=== PATIENT | female | born 1965 | race Caucasian/White ===

== ENCOUNTER 2016-09-17 15:28 | Inpatient (IN) | payer OTHER ==
--- NOTE | 2016-09-17 15:39 | EKG Report ---
Test Performed on : 09/17/2016 3:36:07 PM Test Reason : Chest Pain Blood Pressure : / mmHG Vent. Rate : 063 BPM Atrial Rate : 063 BPM P-R Int : 344 ms QRS Dur : 138 ms QT Int : 476 ms P-R-T Axes : 007 -56 070 degrees QTc Int : 487 ms Sinus rhythm. with 1st degree AV block. Left axis deviation Nonspecific intraventricular block Cannot rule out Anterior infarct (cited on or before 18-SEP-2015) Abnormal ECG When compared with ECG of 08-APR-2016 16:21, Questionable change in initial forces of Anterior leads Unconfirmed Result
--- NOTE | 2016-09-17 15:56 | ED EKG INTERP ---
EKG Interpretation - EKG Time of EKG reading by physician:: 15:36 EKG Read and Signed by:: Jana Aguilar EKG Interpretation (*Must complete 3 of following elements*): Abnormal Rate: 63 (nonspecific intraventricular block ; cannot rule out anterior infarct) Rhythm: sinus rhythm with 1st degree AV block [place]: left (deviation) - EKG # 2 Time of EKG reading by physician:: 17:00 EKG Read and Signed by:: Jana Aguilar EKG Interpretation (*Must complete 3 of following elements*): Abnormal Rate: 58 Rhythm: sinus bradycardia with 1st degree AV block [place]: left (deviation) QRS: LBB Attestation - Scribe Verification/Attestation Scribe:: Sue Oneil Acting as Scribe for:: Jana Aguilar Scribe documention review:: This chart was documented by a scribe and accurately reflects the service the provider performed and the decisions made by the provider.
[2016-09-17 15:59] LABS: MANUAL DIFF NEEDED? NO
[2016-09-17 16:03] LABS: BASO% 0.3 % (0.0-0.8); EOS# 0.13 X1000 (0.0-0.7); EOS% 2.1 % (0.0-10.0); HEMATOCRIT 31.2 % (37.0-47.0); HEMOGLOBIN 10.6 g/dL (12.0-16.0); IMM GRAN# 0.02 X1000 (0.0-0.04); IMM GRAN% 0.3 % (0.0-0.5); LYMPH# 1.25 X1000 (1.2-3.4); LYMPH% 19.7 % (20.5-51.1); MCH 30.6 PG (27-31); MCV 90.2 FL (81-99); MONO# 0.71 X1000 (0.11-0.59); MONO% 11.2 % (1.7-9.3); MPV 11.3 FL (7.4-10.4); NEUT% 66.4 % (42.2-75.2); PLT 120 X1000 (130-400); RBC 3.46 XMIL (4.2-5.4)
[2016-09-17 16:13] LABS: INR 1.2; PROTIME 12.7 Seconds (9.2-11.7); PTT 33.1 Seconds (22.0-36.0)
[2016-09-17] MEDS ORDERED: PHENERGAN ONE (16:36)
--- NOTE | 2016-09-17 16:41 | PROVIDER DOCUMENTATION ---
HPI-General Adult - General Source: patient - History of Present Illness -Gen Adult Nature of Presenting Problems: pt is a 51 yof who came to the ED with a cc of not feeling well. Pt reports she has been vomiting and having diarrhea for the last week and missed dialysis. Location of Pain/Injury: reports: chest Pain Radiation: reports: no radiation Quality of Pain: reports: none Onset/Duration: reports: 3 days ago Timing: reports: still present Context/Activities at Onset: reports: none Modifying Factors: improves with: vomiting Associated Symptoms: reports: diarrhea, vomiting Similar Symptoms Previously?: No Recently seen or treated by another doctor?: No <Sue Oneil - Last Filed: 09/17/16 17:15> <Jana Aguilar - Last Filed: 09/17/16 17:27> - General Chief Complaint: General Adult Stated Complaint: WEAKNESS,CP,SOB Time Seen by Provider: 09/17/16 16:11 Allergies/Adverse Reactions: Patient Allergies Allergy/AdvReac Type Severity Reaction Status Date / Time rizatriptan benzoate * Allergy Severe ANAPHYLAXIS Verified 09/17/16 16:19 [From Maxalt] ciprofloxacin [From Cipro] Allergy Mild Unknown Verified 09/17/16 16:19 ciprofloxacin HCl * Allergy Mild Unknown Verified 09/17/16 16:19 [From Cipro] ondansetron HCl * Allergy Mild HEADACHE Verified 09/17/16 16:19 [From Zofran] Sulfa (Sulfonamide Allergy Unknown Verified 09/17/16 16:19 Antibiotics) Home Medications: Home Medication List Medication Instructions Recorded Confirmed Last Taken Type Trazodone [Desyrel] 50 mg PO QHS 09/30/13 09/17/16 09/16/16 20:00 History Clonidine [Catapres] 0.2 mg PO BID #60 tablet 07/07/15 09/17/16 09/17/16 09:30 Rx Carvedilol [Coreg] 25 mg PO BID #60 tablet 09/25/15 09/17/16 09/17/16 09:30 Rx Pregabalin [Lyrica] 300 mg PO BID 10/02/15 09/17/16 04/08/16 08:00 History Acetaminophen [Tylenol] 650 mg PO Q6H PRN PRN #0 tablet 01/26/16 04/08/16 Unknown Rx Insulin Lispro [Humalog] See Protocol SQ DIRECTED #0 01/26/16 09/17/16 08:00 Rx cartridge Aspirin [Aspirin EC] 81 mg PO DAILY 04/08/16 09/17/16 09/17/16 09:30 History Cinnamon Bark [Cinnamon] 500 mg PO BID 04/08/16 09/17/16 09/17/16 09:30 History Clopidogrel Bisulfate [Plavix] 75 mg PO DAILY 04/08/16 09/17/16 09/17/16 09:30 History Folic Acid/Vitamin B Comp W-C 0.8 mg PO DAILY 04/08/16 09/17/16 04/08/16 08:00 History [Folic Acid Xtra Caplet] Insulin Glargine [Lantus] 30 unit SUBQ QHS 04/08/16 09/17/16 04/07/16 21:00 History Losartan [Cozaar] 100 mg PO DAILY 04/08/16 09/17/16 09/17/16 09:30 History Quetiapine Fumarate [Seroquel] 100 mg PO DAILY 04/08/16 09/17/16 04/08/16 08:00 History Hydrocodone/APAP 7.5 mg/325 mg 1 each PO Q6H PRN PRN #0 tablet 04/14/16 Unknown Rx [[place]-7.5] Metoclopramide [Reglan] 5 mg PO TID AC #0 tablet 04/14/16 09/17/16 Unknown Rx Nifedipine E.r. [Procardia ER] 60 mg PO DAILY #0 tablet 04/14/16 09/17/16 09: 30 Rx Nifedipine [Procardia Xl] 60 mg PO DAILY #0 04/14/16 09/17/16 09/17/16 09:30 Rx ATORVAstatin [Lipitor] 10 mg PO QHS 09/17/16 09/17/16 Unknown History Review of Systems - Adult - REVIEW OF SYSTEMS - ADULT Constitutional: denies: chills, fever Eyes: reports: no symptoms reported Ears, Nose, Mouth & Throat: reports: no symptoms reported Cardiovascular: denies: heart murmur, orthopnea Respiratory: reports: no symptoms reported Gastrointestinal: reports: abdominal pain, diarrhea, nausea, vomiting. denies: difficulty swallowing, frequent heartburn, poor appetite Genitourinary: reports: no symptoms reported Musculoskeletal: denies: frequent leg cramps, muscle aches Integumentary: reports: no symptoms reported Neurological: reports: no symptoms reported Psychiatric: reports: no symptoms reported Endocrine: reports: no symptoms reported Hematologic/Lymphatic: reports: no symptoms reported Allergic/Immunologic: reports: no symptoms reported All Other Systems: Reviewed and Negative <Sue Oneil - Last Filed: 09/17/16 17:15> Past History - Adult - PAST MEDICAL HISTORY-ADULT Review of Records: reports: Old Records Reviewed, Nursing Assessment Review Major Childhood Illnesses: reports: denies history Cardiovascular: reports: CHF, HTN, murmur Respiratory: reports: asthma, COPD Gastrointestinal: reports: GERD Obstetrical/Gynecological: reports: denies history Genitourinary: reports: dialysis (TTS), ESRD Musculoskeletal: reports: arthritis Neurological: reports: speech difficulty Psychiatric: reports: depression Endocrine/Immune: reports: Diabetes Other Conditions: reports: denies history - PRIOR SURGERIES/PROCEDURES Surgical/Procedure History: reports: appendectomy, cholecystectomy, hysterectomy , indwelling device (AV fist left arm), orthopedic (extremity) - PRIOR HOSPITALIZATIONS Prior Hospitalizations: reports: none - IMMUNIZATION STATUS Childhood Immunizations: See Nurse Assessment Flu Vaccine: See Nurse Assessment - FAMILY HISTORY Family History: reviewed, not pertinent <Sue Oneil - Last Filed: 09/17/16 17:15> Physical Exam-General - PHYSICAL EXAM-ADULT Initial Vital Signs Reviewed: Yes - CONSTITUTIONAL General Appearance: alert, no apparent distress - EYES Eyes: PERRL/EOMI, pink conjunctivae, fundi clear, no AV nicking - HEAD, EARS, NOSE, MOUTH & THROAT HENMT: normocephalic/atraumatic, moist mucous membranes, normal ENT inspection - NECK Neck: non-tender, full range of motion - RESPIRATORY Respiratory: chest non-tender, lungs clear, normal breath sounds, no pleuratic chest pain, no respiratory distress, no accessory muscle use - CARDIOVASCULAR Cardiovascular: normal peripheral pulses, regular rate, rhythm, no edema, no gallop, no JVD, no murmur - GASTROINTESTINAL (ABDOMEN) Abdominal Exam: normal bowel sounds, tenderness - MUSCULOSKELETAL Back Exam: normal inspection, no CVA tenderness, no vertebral tenderness - SKIN Integumentary: normal turgor, warm/dry, pallor - NEUROLOGIC Neurologic: grossly normal - PSYCHIATRIC Psych/Mental Status: normal mood/affect, normal thought content, normal thought process, oriented x 3 <Sue Oneil - Last Filed: 09/17/16 17:15> Progress - PLAN OF CARE/RESULTS Progress/Plan/Lab Results: Vital Signs - 24 hr 09/17/16 15:34 Temperature 97.8 F Pulse Rate 63 Respiratory 20 Rate Blood Pressure 132/82 O2 Sat by Pulse 95 Oximetry Orders Category Date Time Status CHEST-2 VIEWS [RAD] Stat Exams 09/17/16 15:32 Taken AMYLASE [CHEM] Stat Lab 09/17/16 15:52 Received CBC WITH ELECTRONIC DIFF [HEME] Stat Lab 09/17/16 15:52 Completed CK PROFILE [SP CHEM] Stat Lab 09/17/16 15:52 Received COMPREHENSIVE METABOLIC PANEL [CHEM] Stat Lab 09/17/16 15:52 Received LIPASE [CHEM] Stat Lab 09/17/16 15:52 Received MAGNESIUM [CHEM] Stat Lab 09/17/16 15:52 Received PRO B-NATRIURETIC PEPTIDE Stat Lab 09/17/16 15:52 Received PROTIME WITH INR [COAG] Stat Lab 09/17/16 15:52 Completed PTT [COAG] Stat Lab 09/17/16 15:52 Completed TROPONIN T Stat Lab 09/17/16 15:52 Received Promethazine [Phenergan] Med 09/17/16 16:36 Discontinued 25 mg .ROUTE .STK-MED ONE EKG [EKG] Stat Ther 09/17/16 15:32 Draft Laboratory Tests 09/17/16 09/17/16 15:52 15:52 WBC 6.33 RBC 3.46 L Hgb 10.6 L Hct 31.2 L MCV 90.2 MCH 30.6 MCHC 34.0 RDW Std Deviation 13.3 Plt Count 120 L MPV 11.3 H Immature Gran % (Auto) 0.3 Neut % (Auto) 66.4 Lymph % (Auto) 19.7 L [place] % (Auto) 11.2 H Eos % (Auto) 2.1 Baso % (Auto) 0.3 Immature Gran # (Auto) 0.02 Neut # (Auto) 4.20 Lymph # (Auto) 1.25 [place] # (Auto) 0.71 H Eos # (Auto) 0.13 Baso # (Auto) 0.02 PT 12.7 H INR 1.20 PTT (Actin FS) 33.1 Laboratory Tests 09/17/16 09/17/16 09/17/16 15:52 15:52 15:52 WBC 6.33 RBC 3.46 L Hgb 10.6 L Hct 31.2 L MCV 90.2 MCH 30.6 MCHC 34.0 RDW Std Deviation 13.3 Plt Count 120 L MPV 11.3 H Immature Gran % (Auto) 0.3 Neut % (Auto) 66.4 Lymph % (Auto) 19.7 L [place] % (Auto) 11.2 H Eos % (Auto) 2.1 Baso % (Auto) 0.3 Immature Gran # (Auto) 0.02 Neut # (Auto) 4.20 Lymph # (Auto) 1.25 [place] # (Auto) 0.71 H Eos # (Auto) 0.13 Baso # (Auto) 0.02 PT INR PTT (Actin FS) Sodium 132 L Potassium 7.6 H* Chloride 88 L Carbon Dioxide 16 L Anion Gap 28 BUN 105 H Creatinine 14.0 H* Estimated GFR/1.73 m2 3 BUN/Creatinine Ratio 8 Glucose 157 H Calculated Osmolality 301 Calcium 9.8 Magnesium 2.0 Total Bilirubin 0.43 AST 12 ALT 9 L Alkaline Phosphatase 138 H Creatine Kinase 97 Troponin T Fag-T-Zobfmkpvoix Pept > 87198 H Total Protein 8.0 Albumin 3.8 Globulin 4.2 Albumin/Globulin Ratio 0.9 Amylase 29 Lipase 45 09/17/16 09/17/16 15:52 15:52 WBC RBC Hgb Hct MCV MCH MCHC RDW Std Deviation Plt Count MPV Immature Gran % (Auto) Neut % (Auto) Lymph % (Auto) [place] % (Auto) Eos % (Auto) Baso % (Auto) Immature Gran # (Auto) Neut # (Auto) Lymph # (Auto) [place] # (Auto) Eos # (Auto) Baso # (Auto) PT 12.7 H INR 1.20 PTT (Actin FS) 33.1 Sodium Potassium Chloride Carbon Dioxide Anion Gap BUN Creatinine Estimated GFR/1.73 m2 BUN/Creatinine Ratio Glucose Calculated Osmolality Calcium Magnesium Total Bilirubin AST ALT Alkaline Phosphatase Creatine Kinase Troponin T 0.444 H* Hfy-K-Qzzcbtgqmlg Pept Total Protein Albumin Globulin Albumin/Globulin Ratio Amylase Lipase - CONSULTS/PCP/HOSPITALIST Notification #1 *Consult/PCP/Hospitalist*: Dr. Madrid Time Discussed: 17:05 (talked about pt 7.6 K. ) Consult Disposition: Admit #2 Consult: Dr. Gooden Time Discussed: 17:10 (pt should be admitted for high K, dialysis is not available right now. ) Consult Disposition: Admit #3 Consult: Dr. Madrid Time Discussed: 17:13 (comfirmed with Dr. Gooden) Consult Disposition: Admit <Sue Oneil - Last Filed: 09/17/16 17:15> - PLAN OF CARE/RESULTS Progress/Plan/Lab Results: Laboratory Results - last 24 hr 09/17/16 09/17/16 09/17/16 15:52 15:52 15:52 WBC 6.33 RBC 3.46 L Hgb 10.6 L Hct 31.2 L MCV 90.2 MCH 30.6 MCHC 34.0 RDW Std Deviation 13.3 Plt Count 120 L MPV 11.3 H Immature Gran % (Auto) 0.3 Neut % (Auto) 66.4 Lymph % (Auto) 19.7 L [place] % (Auto) 11.2 H Eos % (Auto) 2.1 Baso % (Auto) 0.3 Immature Gran # (Auto) 0.02 Neut # (Auto) 4.20 Lymph # (Auto) 1.25 [place] # (Auto) 0.71 H Eos # (Auto) 0.13 Baso # (Auto) 0.02 PT INR PTT (Actin FS) Sodium 132 L Potassium 7.6 H* Chloride 88 L Carbon Dioxide 16 L Anion Gap 28 BUN 105 H Creatinine 14.0 H* Estimated GFR/1.73 m2 3 BUN/Creatinine Ratio 8 Glucose 157 H Calculated Osmolality 301 Calcium 9.8 Magnesium 2.0 Total Bilirubin 0.43 AST 12 ALT 9 L Alkaline Phosphatase 138 H Creatine Kinase 97 Troponin T Top-B-Pueduvrkpkf Pept > 04702 H Total Protein 8.0 Albumin 3.8 Globulin 4.2 Albumin/Globulin Ratio 0.9 Amylase 29 Lipase 45 09/17/16 09/17/16 15:52 15:52 WBC RBC Hgb Hct MCV MCH MCHC RDW Std Deviation Plt Count MPV Immature Gran % (Auto) Neut % (Auto) Lymph % (Auto) [place] % (Auto) Eos % (Auto) Baso % (Auto) Immature Gran # (Auto) Neut # (Auto) Lymph # (Auto) [place] # (Auto) Eos # (Auto) Baso # (Auto) PT 12.7 H INR 1.20 PTT (Actin FS) 33.1 Sodium Potassium Chloride Carbon Dioxide Anion Gap BUN Creatinine Estimated GFR/1.73 m2 BUN/Creatinine Ratio Glucose Calculated Osmolality Calcium Magnesium Total Bilirubin AST ALT Alkaline Phosphatase Creatine Kinase Troponin T 0.444 H* Xdd-O-Mbufwozwmmh Pept Total Protein Albumin Globulin Albumin/Globulin Ratio Amylase Lipase Orders Category Date Time Status Admit - [facility] Routine AdmDCTranf 09/17/16 17:16 Ordered Call Admitting on Arrival AT ADMISSION Care 09/17/16 17:17 Active CHEST-2 VIEWS [RAD] Stat Exams 09/17/16 15:32 Taken AMYLASE [CHEM] Stat Lab 09/17/16 15:52 Completed CBC WITH ELECTRONIC DIFF [HEME] Stat Lab 09/17/16 15:52 Completed CK PROFILE [SP CHEM] Stat Lab 09/17/16 15:52 Completed COMPREHENSIVE METABOLIC PANEL [CHEM] Stat Lab 09/17/16 15:52 Completed LIPASE [CHEM] Stat Lab 09/17/16 15:52 Completed MAGNESIUM [CHEM] Stat Lab 09/17/16 15:52 Completed POTASSIUM [CHEM] Routine Lab 09/17/16 22:00 Uncollected POTASSIUM [CHEM] Stat Lab 09/17/16 17:17 Uncollected POTASSIUM [CHEM] Urgent Lab 09/17/16 19:00 Uncollected PRO B-NATRIURETIC PEPTIDE Stat Lab 09/17/16 15:52 Completed PROTIME WITH INR [COAG] Stat Lab 09/17/16 15:52 Completed PTT [COAG] Stat Lab 09/17/16 15:52 Completed TROPONIN T Stat Lab 09/17/16 15:52 Completed Albuterol 0.5% INH Conc [Albuterol 0.5% INH Conc For Med 09/17/16 21:00 Once Hyperkalemia] 25 mg INH NOW ONE Albuterol [Albuterol Neb] Med 09/17/16 16:57 Discontinued 25 mg INH NOW ONE Calcium Gluconate 1 gm Med 09/17/16 16:54 Discontinued 0.9% Sodium Chloride Inj [Ns] 50 ml IV NOW Dextrose 50% Syringe [D50w Syringe] Med 09/17/16 16:54 Discontinued 50 ml IV NOW ONE Dextrose 50% Syringe [D50w Syringe] Med 09/17/16 21:00 Once 50 ml IV NOW ONE Insulin Human Regular [Humulin R] Med 09/17/16 16:54 Discontinued 10 unit IV NOW ONE Insulin Human Regular [Humulin R] Med 09/17/16 21:00 Once 10 unit IV NOW ONE Promethazine [Phenergan] Med 09/17/16 16:36 Discontinued 25 mg .ROUTE .STK-MED ONE Promethazine [Phenergan] Med 09/17/16 16:43 Discontinued 25 mg IM NOW ONE Aerosol Treatments Routine Oth 09/17/16 16:57 Completed Aerosol Treatments Routine Oth 09/17/16 17:16 Active Aerosol Treatments Stat Oth 09/17/16 16:57 Completed Aerosol Treatments Stat Oth 09/17/16 17:16 Active Telemetry [OM.EQ] Routine Oth 09/17/16 17:15 Active EKG [EKG] Stat Ther 09/17/16 15:32 Draft EKG [EKG] Stat Ther 09/17/16 16:58 Ordered Transfer/Admit Order [TRANSFER] Routine Transfer 09/17/16 17:17 Ordered Vital Signs Temp Pulse Resp BP Pulse Ox 09/17/16 17:21 58 L 16 133/83 96 09/17/16 17:12 51 L 18 95 09/17/16 15:34 97.8 F 63 20 132/82 95 rizatriptan benzoate * [From Maxalt] Allergy (Severe, Verified 09/17/16 16:19) ANAPHYLAXIS ciprofloxacin [From Cipro] Allergy (Mild, Verified 09/17/16 16:19) Unknown ciprofloxacin HCl * [From Cipro] Allergy (Mild, Verified 09/17/16 16:19) Unknown ondansetron HCl * [From Zofran] Allergy (Mild, Verified 09/17/16 16:19) HEADACHE Sulfa (Sulfonamide Antibiotics) Allergy (Verified 09/17/16 16:19) Unknown Trazodone [Desyrel] 50 mg PO QHS 09/30/13 Clonidine [Catapres] 0.2 mg PO BID #60 tablet 07/07/15 Carvedilol [Coreg] 25 mg PO BID #60 tablet 09/25/15 Pregabalin [Lyrica] 300 mg PO BID 10/02/15 Acetaminophen [Tylenol] 650 mg PO Q6H PRN PRN #0 tablet 01/26/16 Insulin Lispro [Humalog] See Protocol SQ DIRECTED #0 cartridge 01/26/16 Aspirin [Aspirin EC] 81 mg PO DAILY 04/08/16 Cinnamon Bark [Cinnamon] 500 mg PO BID 04/08/16 Clopidogrel Bisulfate [Plavix] 75 mg PO DAILY 04/08/16 Folic Acid/Vitamin B Comp W-C [Folic Acid Xtra Caplet] 0.8 mg PO DAILY 04/08/16 Insulin Glargine [Lantus] 30 unit SUBQ QHS 04/08/16 Losartan [Cozaar] 100 mg PO DAILY 04/08/16 Quetiapine Fumarate [Seroquel] 100 mg PO DAILY 04/08/16 Hydrocodone/APAP 7.5 mg/325 mg [[place]-7.5] 1 each PO Q6H PRN PRN #0 tablet 04/14 Metoclopramide [Reglan] 5 mg PO TID AC #0 tablet 04/14/16 Nifedipine E.r. [Procardia ER] 60 mg PO DAILY #0 tablet 04/14/16 Nifedipine [Procardia Xl] 60 mg PO DAILY #0 04/14/16 ATORVAstatin [Lipitor] 10 mg PO QHS 09/17/16 Laboratory 09/17/16 09/17/16 09/17/16 15:52 15:52 15:52 WBC RBC Hgb Hct MCV MCH MCHC RDW Std Deviation Plt Count MPV Immature Gran % (Auto) Neut % (Auto) Lymph % (Auto) [place] % (Auto) Eos % (Auto) Baso % (Auto) Immature Gran # (Auto) Neut # (Auto) Lymph # (Auto) [place] # (Auto) Eos # (Auto) Baso # (Auto) PT 12.7 H INR 1.20 PTT (Actin FS) 33.1 Sodium Potassium Chloride Carbon Dioxide Anion Gap BUN Creatinine Estimated GFR/1.73 m2 BUN/Creatinine Ratio Glucose Calculated Osmolality Calcium Magnesium Total Bilirubin AST ALT Alkaline Phosphatase Creatine Kinase Troponin T 0.444 H* Mdk-F-Jrixenlvglk Pept > 93727 H Total Protein Albumin Globulin Albumin/Globulin Ratio Amylase Lipase 09/17/16 09/17/16 15:52 15:52 WBC 6.33 RBC 3.46 L Hgb 10.6 L Hct 31.2 L MCV 90.2 MCH 30.6 MCHC 34.0 RDW Std Deviation 13.3 Plt Count 120 L MPV 11.3 H Immature Gran % (Auto) 0.3 Neut % (Auto) 66.4 Lymph % (Auto) 19.7 L [place] % (Auto) 11.2 H Eos % (Auto) 2.1 Baso % (Auto) 0.3 Immature Gran # (Auto) 0.02 Neut # (Auto) 4.20 Lymph # (Auto) 1.25 [place] # (Auto) 0.71 H Eos # (Auto) 0.13 Baso # (Auto) 0.02 PT INR PTT (Actin FS) Sodium 132 L Potassium 7.6 H* Chloride 88 L Carbon Dioxide 16 L Anion Gap 28 BUN 105 H Creatinine 14.0 H* Estimated GFR/1.73 m2 3 BUN/Creatinine Ratio 8 Glucose 157 H Calculated Osmolality 301 Calcium 9.8 Magnesium 2.0 Total Bilirubin 0.43 AST 12 ALT 9 L Alkaline Phosphatase 138 H Creatine Kinase 97 Troponin T Kkm-F-Clmqdvwqrex Pept Total Protein 8.0 Albumin 3.8 Globulin 4.2 Albumin/Globulin Ratio 0.9 Amylase 29 Lipase 45 - REASSESSMENT Reassessment #1 Time Reassessed: 17:24 Status: unchanged (Consulted Dr. Reynaga, in agreeable with ER management plan. Instructed to repeat abnormal labs later on after admission. If it no improvement, will do emergent dialysis. Dr. Madrid, admitting physician, received Dr. Ma's instructions from me.) <Jana Aguilar - Last Filed: 09/17/16 17:27> Departure - Departure Time of Disposition Order: 17:18 Certified Medical Emergency: Emergent <Sue Oneil - Last Filed: 09/17/16 17:15> - Departure Time of Disposition Order: 17:26 Certified Medical Emergency: Emergent - Critical Care Note Total Time (mins): 30 Critical Care Statement: This patient required my direct personal management to treat or rule out processes, the absence of which, could potentiallly result in sudden, clinically significant life or limb threatening deterioration. <Jana Aguilar - Last Filed: 09/17/16 17:27> - Departure DIAGNOSIS: Hyperkalemia, diminished renal excretion Diarrhea Qualifiers: Diarrhea type: unspecified type Qualified Code(s): R19.7 - Diarrhea, unspecified Nausea & vomiting Qualifiers: Vomiting type: unspecified Vomiting Intractability: unspecified Qualified Code( s): R11.2 - Nausea with vomiting, unspecified Disposition: ADMITTED INPATIENT 09 Condition: Stable Referrals: Yared Elizondo MD [Primary Care Provider] - Attestation - Scribe Verification/Attestation Scribe:: Sue Oneil Acting as Scribe for:: Jana Aguilar Scribe documention review:: This chart was documented by a scribe and accurately reflects the service the provider performed and the decisions made by the provider. <Sue Oneil - Last Filed: 09/17/16 17:15> Physician Attestation
[2016-09-17] MEDS ORDERED: PHENERGAN IM ONE (16:43)
[2016-09-17 16:50] LABS: ALBUMIN 3.8 g/dL (3.5-5.0); CALCIUM 9.8 mg/dL (8.8-10.2); TOTAL BILIRUBIN 0.43 mg/dL (0.20-1.00)
[2016-09-17 16:51] LABS: POTASSIUM 7.6 mmol/L (3.5-5.1)
[2016-09-17] MEDS ORDERED: HUMULIN R IV ONE ×2 (16:54→21:00)
[2016-09-17] MEDS ORDERED: CALCIUM GLUCONATE 1 GM in NS 50 ML IV ONE (16:54)
[2016-09-17] MEDS ORDERED: D50W SYRINGE IV ONE ×2 (16:54→21:00)
[2016-09-17] MEDS ORDERED: ALBUTEROL NEB INH ONE (16:57)
[2016-09-17] MEDS ORDERED: ALBUTEROL 0.5% INH CONC FOR HYPERKALEMIA ONE (17:22)
[2016-09-17 18:01] LABS: ALLEN TEST YES; BE -7.9 mmoll (-3.0-3.0); BLOOD TYPE ARTERIAL; DRAW SITE R RADIAL; O2(CT) 14.1 mL/dL (15.0-23.0); PCO2(98.6) 39 mmHg (35-45); PO2(98.6) 69 mmHg (60-100); SAMPLE BLOOD; SAO2 93.5 % (95.0-100.0); THB 10.9 g/dL (11.5-17.4); pH(98.6) 7.28 (7.35-7.45)
[2016-09-17 18:03] LABS: MODALITY ROOM AIR
[2016-09-17] MEDS ORDERED: KAYEXALATE PO ONE (19:03)
[2016-09-17] MEDS ORDERED: TYLENOL PO PRN (19:15)
[2016-09-17] MEDS ORDERED: DUONEB (A & A) INH ONE (19:15)
[2016-09-17] MEDS ORDERED: HEPARIN IV PRN (19:17)
[2016-09-17] MEDS ORDERED: NS 2,000 ML MISC PRN (19:17)
[2016-09-17] MEDS ORDERED: TIGHT: 0.2 ML/HR MISC PRN (19:17)
[2016-09-17] MEDS ORDERED: FLUZONE QUAD 2016-2017 SYRINGE IM ONE (19:36)
--- NOTE | 2016-09-17 20:01 | HISTORY AND PHYSICAL ---
CHIEF COMPLAINT: Altered mental status. Skipped dialysis Tuesday, Tuesday, Tuesday. High potassium 7.6. HISTORY OF PRESENT ILLNESS: She is a 58-year-old white female, patient of Dr. Elizondo and Dr. Ma, on dialysis 3 times a week. She skipped 3 days in a row. She came into the ER with fatigue, weakness, altered mental status. EKG shows a left bundle. Potassium 7.6. The patient was given nebulizer dextrose, Kayexalate, calcium gluconate. Admitted in [facility] for hyperkalemia due to skipping the dialysis. Dr. Ma was consulted. He is going to do the dialysis in the morning. PAST MEDICAL HISTORY: End-stage renal disease on hemodialysis, insulin dependent diabetes, hypertension, obesity, hyperlipidemia, osteoarthritis, acid reflux disease, TA with stroke, peripheral neuropathy, history of chronic anemia. PAST SURGICAL HISTORY: Left arm fistula, hysterectomy, appendectomy, bowel resection. MEDICATIONS: Trazodone 50 at bedtime, clonidine 0.2 p.o. b.i.d., Coreg 25 p.o. b.i.d., Lyrica 300 mg b.i.d., Humalog insulin, Seroquel 100 daily, Plavix 75 daily, cinnamon bark 500 p.o. b.i.d., aspirin 80 mg daily, folic acid 0.8 mg daily, Lantus 30 units at bedtime, Cozaar 100 daily, nifedipine 60 daily, Reglan 5 mg t.i.d., [place] 7.5 q.6 hours, nifedipine 60 daily, Lipitor 10 daily. ALLERGIES: Reported to ciprofloxacin, Maxalt, Zofran, Sariah Negron. SOCIAL HISTORY: Lives in [place]. and lives with her . No smoking. No alcohol. FAMILY HISTORY: Mostly diabetes, hypertension, hyperlipidemia. REVIEW OF SYSTEMS: Unable to obtain due to confusion. PHYSICAL EXAMINATION: VITAL SIGNS: Stable on 92 % room air, drowsy and heavyset. HEENT: Pupils equal and reactive to light. NECK: Supple. No lymphadenopathy. CHEST: Bilateral air entry. No rales, no wheezing. HEART: Sounds are very distant. BREAST EXAMINATION: Deferred. ABDOMEN: Belly is soft. Midline abdominal scar present. SKIN: Extremities dry. VASCULAR: Pulses are decreased. NEUROLOGIC: Sensory examination is decreased and left arm fistula noted. EXTREMITIES: Moves all the extremities without any obvious deficits. INVESTIGATIONS: CBC: White cell count 6.3, hematocrit 31, platelets 120,000. PT 12, INR 1.2. ABG: pH is 7.38, pCO2 39, PO2 69. SMA 7, sodium 132, potassium 7.6, chloride 88, BUN 105, creatinine 1.14, magnesium 2.0. LFTs were normal. Troponin was positive. proBNP 35,000. Amylase and lipase were normal. EKG: Sinus rhythm, first-degree AV block, QT interval is 487 milliseconds. No tall T waves detected. ASSESSMENT AND PLAN: 1. A 51-year-old, white female admitted to the hospital with altered mental status due to hyperkalemia and not going for dialysis. Continue CIC monitoring. The patient was given calcium gluconate nebulizer, dextrose with 10 units of insulin and Kayexalate. Repeat SMA 7. 2. Dr. Ma consultation in the morning. 3. Reconcile home medications and follow up on labs. Discussed with family. ISABELLA
[2016-09-17] MEDS ORDERED: HUMALOG SUBQ SCH (21:00)
[2016-09-17] MEDS ORDERED: CATAPRES PO SCH (21:00)
[2016-09-17] MEDS ORDERED: ALBUTEROL 0.5% INH CONC FOR HYPERKALEMIA INH ONE (21:00)
[2016-09-17] MEDS ORDERED: LANTUS SUBQ SCH (21:00)
[2016-09-17] MEDS ORDERED: LIPITOR PO SCH (21:00)
[2016-09-17] MEDS ORDERED: COREG PO SCH (21:00)
[2016-09-17] MEDS: SODIUM CHLORIDE 0.9% INJ SCH (21:45)
[2016-09-17] MEDS: PROTONIX IV SCH (21:45)
[2016-09-17] MEDS: CATAPRES PO SCH ×2 (21:45→23:16)
[2016-09-17] MEDS: LIPITOR PO SCH ×2 (21:45→23:16)
[2016-09-17] MEDS: COREG PO SCH ×2 (21:45→23:16)
[2016-09-17] MEDS: LYRICA PO SCH ×2 (21:46→23:16)
[2016-09-17] MEDS: PATIENT'S OWN MED PO SCH (23:24)
[2016-09-18] MEDS: LANTUS SUBQ SCH (01:29)
[2016-09-18] MEDS: HUMALOG SUBQ SCH ×5 (01:30→22:09)
--- NOTE | 2016-09-18 04:29 | Diag Imaging Result Document ---
PROCEDURE NAME: CHEST-2 VIEWS - 09/17/2016 AP AND LATERAL RADIOGRAPH OF THE CHEST: COMPARISON: 04/10/2016. FINDINGS: Inspiration is suboptimal. There are increased central vascular markings suggesting pulmonary venous congestion. It is fairly similar to the previous study. The lungs are grossly clear, otherwise. There is no definite pleural fluid collection. Cardiac silhouette appears somewhat prominent but stable. IMPRESSION: Increased central vascular markings suggesting likely mild pulmonary venous congestion.
[2016-09-18 05:07] LABS: MANUAL DIFF NEEDED? NO
[2016-09-18 05:12] LABS: BASO% 0.2 % (0.0-0.8); EOS# 0.19 X1000 (0.0-0.7); EOS% 3.6 % (0.0-10.0); HEMATOCRIT 27.4 % (37.0-47.0); HEMOGLOBIN 9.2 g/dL (12.0-16.0); LYMPH# 1.49 X1000 (1.2-3.4); LYMPH% 28.5 % (20.5-51.1); MCH 30.4 PG (27-31); MCHC 33.6 g/dL (33-37); MCV 90.4 FL (81-99); MONO# 0.66 X1000 (0.11-0.59); MONO% 12.6 % (1.7-9.3); MPV 11.4 FL (7.4-10.4); NEUT% 55.1 % (42.2-75.2); PLT 108 X1000 (130-400); RBC 3.03 XMIL (4.2-5.4)
[2016-09-18 05:29] LABS: CALCIUM 9.2 mg/dL (8.8-10.2); POTASSIUM 5.8 mmol/L (3.5-5.1)
[2016-09-18 05:34] LABS: HEMOGLOBIN A1C 9.2 % (4.8-6.0)
[2016-09-18] MEDS ORDERED: NS 2,000 ML MISC PRN (07:29)
[2016-09-18] MEDS ORDERED: HEPARIN IV PRN (07:29)
[2016-09-18] MEDS ORDERED: TIGHT: 0.2 ML/HR MISC PRN (07:29)
[2016-09-18] MEDS ORDERED: HEPARIN ONE (08:47)
[2016-09-18] MEDS ORDERED: NS 2,000 ML ONE (08:47)
[2016-09-18] MEDS ORDERED: ASPIRIN EC PO SCH (09:00)
[2016-09-18] MEDS ORDERED: COZAAR PO SCH (09:00)
--- NOTE | 2016-09-18 13:11 | CONSULTATION ---
DATE OF CONSULTATION: 09/18/2016 REASON FOR CONSULTATION: Hyperkalemia and end-stage kidney disease. HISTORY OF PRESENT ILLNESS: Ms. Cates is a 51-year-old white female with obesity, hypertension, diabetes, peripheral vascular disease, anemia, cerebrovascular disease. She has a history of low dialysis adherence and frequent admissions with volume overload and hyperkalemia. She has actually been doing better overall, and her last admission to the hospital was actually in April. She states that she missed dialysis for the last week stating she was having diarrhea, frequent trips to the bathroom, no vomiting. Because of this, she did not attend her treatments. She ultimately came to the emergency room because of profound weakness that had developed during the day yesterday. Her evaluation in the emergency room found a potassium of 7.4 with EKG changes demonstrating prolonged QRS duration at 138 msec with first-degree A-V block with MO interval of 334 msec. Based on these findings, she was treated medically for her hyperkalemia with calcium, insulin, D50, albuterol, etc. Repeat potassium performed at 1828 was 7.6, and so she was dialyzed for 1 hour with a 0K bath. She states she has not attempted to get up, and so she is not aware if her symptoms are improved or not. Repeat potassium this morning was 5.8. No shortness of breath, chest discomfort. No significant swelling. PAST MEDICAL HISTORY: As above. HOME MEDICATIONS: Include trazodone, clonidine, carvedilol, pregabalin, insulin, Plavix, aspirin, folate, losartan, nifedipine, Reglan, [place], Lipitor. ALLERGIES: Ciprofloxacin, Maxalt, Zofran, Tessalon. SOCIAL HISTORY: She is and lives with her . No alcohol or tobacco. FAMILY HISTORY: Positive for diabetes and hypertension. REVIEW OF SYSTEMS: Otherwise noncontributory. PHYSICAL EXAMINATION: Vital signs: Blood pressure 115/69, heart rate 57, respirations 16, afebrile. General: She is an obese white female lying at 45 degrees in no distress, asleep, easily arousable, answer questions appropriately. HEENT: Pupils are equal. Conjunctivae are pink. Oropharynx is dry. Neck: Neck veins are not visible. Trachea is midline. Neck is supple. Heart: Regular with systolic murmur. Lungs: Equal breath sounds, no crackles or wheezes. Abdomen: Soft and nontender. Bowel sounds are present. Extremities: Trace to 1+ edema, no clubbing or cyanosis. LABORATORY DATA: Sodium 133, potassium 5.8, chloride 90, bicarbonate 19, BUN 85, creatinine 11.7. Hemoglobin 9.2. IMPRESSION: 1. Life-threatening hyperkalemia. Treated with medical treatment and dialysis. Improved. Repeating dialysis today. 2. End-stage kidney disease with nonadherence. Continue treatment today and will plan to dialyze intensively next week. 3. Hypertension in target. 4. Electrolytes: Hyperkalemia improved. 5. Acid-base acceptable. She does have a significant anion gap but this is likely related to her dialysis nonadherence. 6. Anemia: Will continue erythropoietin.
[2016-09-18] MEDS: PATIENT'S OWN MED PO SCH (15:03)
[2016-09-18] MEDS: CATAPRES PO SCH ×2 (15:14→23:06)
[2016-09-18] MEDS: COREG PO SCH ×2 (15:15→23:06)
[2016-09-18] MEDS: LYRICA PO SCH ×2 (15:15→23:05)
[2016-09-18] MEDS: NEPHRO-VITE PO SCH (15:24)
[2016-09-18] MEDS: PLAVIX PO SCH (15:24)
[2016-09-18] MEDS: PROCARDIA ER PO SCH (15:24)
[2016-09-18] MEDS: COZAAR PO SCH (15:24)
[2016-09-18] MEDS: ASPIRIN EC PO SCH (15:24)
[2016-09-18] MEDS ORDERED: INSULIN PEN NEEDLES ONE (21:55)
[2016-09-18] MEDS: PHENERGAN IV PRN (22:08)
[2016-09-18] MEDS: SODIUM CHLORIDE 0.9% INJ SCH (22:08)
[2016-09-18] MEDS: PROTONIX IV SCH (22:08)
[2016-09-18] MEDS: SODIUM CHLORIDE 0.9% INJ PRN (22:08)
[2016-09-18] MEDS: LIPITOR PO SCH (23:06)
[2016-09-19] MEDS: LANTUS SUBQ SCH (00:13)
[2016-09-19] MEDS: PATIENT'S OWN MED PO SCH ×3 (00:55→21:42)
[2016-09-19 05:35] LABS: MANUAL DIFF NEEDED? NO
[2016-09-19 05:39] LABS: BASO% 0.3 % (0.0-0.8); EOS# 0.12 X1000 (0.0-0.7); HEMATOCRIT 28.7 % (37.0-47.0); HEMOGLOBIN 9.5 g/dL (12.0-16.0); LYMPH# 1.46 X1000 (1.2-3.4); LYMPH% 24.9 % (20.5-51.1); MCH 30.4 PG (27-31); MCHC 33.1 g/dL (33-37); MCV 91.7 FL (81-99); MONO# 0.96 X1000 (0.11-0.59); MONO% 16.4 % (1.7-9.3); MPV 11.7 FL (7.4-10.4); NEUT% 56.4 % (42.2-75.2); PLT 116 X1000 (130-400); RBC 3.13 XMIL (4.2-5.4)
[2016-09-19 06:01] LABS: POTASSIUM 4.8 mmol/L (3.5-5.1)
[2016-09-19] MEDS: HUMALOG SUBQ SCH ×4 (06:13→23:16)
[2016-09-19] MEDS: NEPHRO-VITE PO SCH (08:40)
[2016-09-19] MEDS: ASPIRIN EC PO SCH (08:41)
[2016-09-19] MEDS: COZAAR PO SCH (08:41)
[2016-09-19] MEDS: PLAVIX PO SCH (08:41)
[2016-09-19] MEDS: LYRICA PO SCH ×2 (08:41→23:16)
[2016-09-19] MEDS: CATAPRES PO SCH ×2 (08:41→21:41)
[2016-09-19] MEDS: COREG PO SCH ×2 (08:41→21:41)
[2016-09-19] MEDS: PROCARDIA ER PO SCH (08:42)
[2016-09-19] MEDS: PHENERGAN IV PRN (11:04)
[2016-09-19] MEDS: SODIUM CHLORIDE 0.9% INJ PRN (11:04)
[2016-09-19] MEDS: LIPITOR PO SCH ×2 (19:38→21:42)
[2016-09-19] MEDS: SODIUM CHLORIDE 0.9% INJ SCH (19:38)
[2016-09-19] MEDS: PROTONIX IV SCH ×2 (19:38→21:42)
[2016-09-20] MEDS: LANTUS SUBQ SCH ×2 (00:15→21:04)
[2016-09-20] MEDS: NORCO-7.5 PO PRN ×2 (02:54→21:01)
[2016-09-20] MEDS: SODIUM CHLORIDE 0.9% INJ PRN ×2 (02:56→16:08)
[2016-09-20] MEDS: PHENERGAN IV PRN ×3 (02:56→22:31)
[2016-09-20 05:23] LABS: MANUAL DIFF NEEDED? NO
[2016-09-20 05:31] LABS: BASO% 0.3 % (0.0-0.8); EOS# 0.26 X1000 (0.0-0.7); EOS% 4.2 % (0.0-10.0); HEMATOCRIT 28.2 % (37.0-47.0); HEMOGLOBIN 9.4 g/dL (12.0-16.0); LYMPH# 1.87 X1000 (1.2-3.4); MCH 30.4 PG (27-31); MCHC 33.3 g/dL (33-37); MCV 91.3 FL (81-99); MONO# 0.73 X1000 (0.11-0.59); MONO% 11.7 % (1.7-9.3); NEUT% 53.8 % (42.2-75.2); PLT 120 X1000 (130-400); RBC 3.09 XMIL (4.2-5.4)
[2016-09-20 06:00] LABS: CALCIUM 9.2 mg/dL (8.8-10.2); POTASSIUM 5.6 mmol/L (3.5-5.1)
[2016-09-20] MEDS: HUMALOG SUBQ SCH ×4 (06:32→21:03)
--- NOTE | 2016-09-20 06:34 | EKG Report ---
Test Performed on : 09/17/2016 5:00:56 PM Test Reason : HD Blood Pressure : / mmHG Vent. Rate : 058 BPM Atrial Rate : 058 BPM P-R Int : 380 ms QRS Dur : 144 ms QT Int : 494 ms P-R-T Axes : -02 -55 071 degrees QTc Int : 484 ms Sinus bradycardia. with 1st degree AV block. Left axis deviation Left bundle branch block Abnormal ECG When compared with ECG of 17-SEP-2016 15:36, (Unconfirmed) Left bundle branch block has replaced Nonspecific intraventricular block Minimal criteria for Anterior infarct are no longer present Unconfirmed Result
[2016-09-20] MEDS ORDERED: TIGHT: 0.2 ML/HR MISC PRN (06:51)
[2016-09-20] MEDS ORDERED: HEPARIN IV PRN (06:51)
[2016-09-20] MEDS ORDERED: NS 2,000 ML MISC PRN (06:51)
[2016-09-20] MEDS ORDERED: HEPARIN ONE ×2 (07:48→09:02)
[2016-09-20] MEDS ORDERED: NS 2,000 ML ONE (07:49)
[2016-09-20] MEDS ORDERED: EPOGEN SUBQ SCH (09:00)
[2016-09-20] MEDS: CATAPRES PO SCH ×2 (13:47→22:32)
[2016-09-20] MEDS: PROCARDIA ER PO SCH (13:48)
[2016-09-20] MEDS: PATIENT'S OWN MED PO SCH ×2 (13:48→21:30)
[2016-09-20] MEDS: COREG PO SCH ×2 (14:23→22:32)
[2016-09-20] MEDS: COZAAR PO SCH (14:23)
[2016-09-20] MEDS: PLAVIX PO SCH (14:47)
[2016-09-20] MEDS: LYRICA PO SCH (14:47)
[2016-09-20] MEDS: ASPIRIN EC PO SCH (14:47)
[2016-09-20] MEDS: NEPHRO-VITE PO SCH (14:47)
[2016-09-20] MEDS: SODIUM CHLORIDE 0.9% INJ SCH ×2 (21:02→22:31)
[2016-09-20] MEDS: PROTONIX IV SCH (21:02)
[2016-09-20] MEDS: LIPITOR PO SCH (21:03)
[2016-09-21] MEDS: LYRICA PO SCH ×2 (02:18→08:27)
[2016-09-21 03:22] VITALS: BP 115/48
--- NOTE | 2016-09-21 06:58 | CONSULTATION ---
DATE OF CONSULTATION: 09/20/2016 REASON FOR ADMISSION: Altered mental status with missed dialysis treatments x1 week with a hyperkalemia. CONSULTING PHYSICIAN: Dr. Madrid. TIME SEEN: 0815 HISTORY OF PRESENT ILLNESS: Ms. Cates is a 58-year-old, white female who is known to our outpatient services for hemodialysis on Tuesday, Tuesday, Tuesday. Patient subsequently has missed her hemodialysis treatments last week and presented with altered mental status and hyperkalemia of 7.6 on admission. She has presented to the ER with fatigue and weakness, altered mental status. Her EKG showed a left bundle branch block. Patient was given nebulizer treatments along with Kayexalate, calcium gluconate. She was admitted to [facility] and subsequently was dialyzed that next morning. The patient denies any chest pain. No increased work of breathing. No nausea, vomiting. No diarrhea. Positive for increased weakness. No increased extremity swelling. No fever or chills are noted. PAST MEDICAL HISTORY: Noted for end-stage renal disease with hemodialysis on Tuesday, Tuesday, Tuesday. Insulin-dependent diabetes mellitus type 2, hypertension, hyperlipidemia, osteoarthritis, acid reflux disease, TA with stroke, peripheral neuropathy, history of chronic anemia. She has gastroparesis. She is also noted to have anemia secondary to chronic disease and a hyper- osteodystrophy secondary to chronic disease. PREVIOUS SURGICAL HISTORY: She has a left arm fistula, hysterectomy, appendectomy, bowel resection, and a previous tunneled catheter placement. SOCIAL HISTORY: She lives with her spouse. She has family who are attentive to her care. She denies any tobacco or alcohol use. FAMILY HISTORY: Positive for diabetes, hypertension, and hyperlipidemia. CURRENT ALLERGIES: Reported as ciprofloxacin, Maxalt, Zofran, Tessalon Perles. HOME MEDICATIONS: Trazodone, clonidine, Coreg, Lyrica, Humalog insulin, Seroquel, Plavix, cinnamon bark, aspirin, folic acid, Lantus, Cozaar, nifedipine, Reglan, [place], and Lipitor. Patient also receives Rocaltrol, Dialyvite vitamins. She is on Ferrlecit and Aranesp is indicated at the outpatient clinic to her anemia and osteodystrophy needs. REVIEW OF SYSTEMS: Review of systems x10 with pertinent positives listed above in the HPI. VITAL SIGNS: Her most recent vital signs are temperature 98.4 degrees, blood pressure 107/78, heart rate 99, respirations 18. She is on room air. Last recorded saturation 99%. She has had 320 in. She has had 4500 out per dialysis on the . LABS: This a.m., sodium 128, potassium 5.6, chloride is 88, CO2 21, BUN 55, creatinine 9.1, glucose 152, her anion gap is 19, calcium is 9.2. White count 6.23, hemoglobin 9.4, hematocrit 28.2, with a platelet count of 120,000. PHYSICAL EXAMINATION: General: This is a 51-year-old, white female. She is resting quietly in bed. She is in no acute distress. Skin: Warm and dry. HEENT: Normocephalic , atraumatic. Conjunctivae are pale. She has LATOYA. Mucous membranes are dry. Neck: Supple. Trachea midline. No JVD. Cardiovascular: She is regular rate and rhythm. Patient has a soft systolic murmur. Lungs: Clear to auscultation anteriorly. Equal excursion. Abdomen: Soft, nontender. Positive bowel sounds. Genitourinary: Not inspected. Minimal void with dialysis assist. Integumentary: Skin is dry. No rashes or lesions evident. Neurological: Alert and oriented x3. ASSESSMENT AND PLAN: 1. End-stage renal disease. Patient is due for her routine dialysis treatment today. We will plan to dialyze her on a 2 K bath. She is to dialyze for 3.5 hours. We will attempt to pull her to her dry weight. 2. Electrolytes. Mild hyperkalemia with correction on dialysis. 3. Acid-base balance. She has a mild anion gap acidosis. This is more than likely secondary to her missed dialysis treatments. 4. Anemia. This remains low but stable. 5. Altered mental status. This has improved. I would to thank you for allowing us to follow with this patient. Seen, data reviewed, discussed with Mela Troncoso on 09/20/16. I agree with the above assessment and plan of care. rg Dictated by TOBIN Medina for Gerardo Ma MD [facility]
[2016-09-21] MEDS: HUMALOG SUBQ SCH (07:00)
[2016-09-21] MEDS: PROCARDIA ER PO SCH (08:26)
[2016-09-21] MEDS: NEPHRO-VITE PO SCH (08:26)
[2016-09-21] MEDS: CATAPRES PO SCH (08:27)
[2016-09-21] MEDS: COREG PO SCH (08:27)
[2016-09-21] MEDS: ASPIRIN EC PO SCH (08:27)
[2016-09-21] MEDS: PLAVIX PO SCH (08:27)
[2016-09-21] MEDS: COZAAR PO SCH (08:27)
[2016-09-21] MEDS: PATIENT'S OWN MED PO SCH (08:28)
--- NOTE | 2016-09-21 17:13 | PROGRESS NOTE ---
DATE: 09/21/2016 SUBJECTIVE: Ms. Cates is currently resting quietly in bed. She has no acute distress. Her skin is warm and dry. She denies any chest pain or increased work of breathing. OBJECTIVE: Her most recent vital signs. Her temperature 98.4, blood pressure 115/48, heart rate 73, respirations 18. She remains on room air. Last recorded saturation is 100% . She has had 1090 in. She has had 4500 out on dialysis yesterday. LABS: This a.m. have not been collected with a previous potassium of 5.6 yesterday and a hemoglobin of 9.4. PHYSICAL EXAMINATION: General: This is a 51-year-old, white female. She is currently resting in bed. She is in no acute distress. Skin: Warm and dry. HEENT: Normocephalic , atraumatic. Conjunctivae pale. She has LATOYA. Mucous membranes moist. Neck: Supple. Trachea midline. No JVD. Cardiovascular: She is regular rate and rhythm. She has a soft systolic murmur. Lungs: Clear to auscultation anteriorly. Equal excursion. Abdomen: Soft, nontender. Positive bowel sounds. Genitourinary: Not inspected. Minimal void with dialysis assist. Integumentary: Skin is dry. No rashes or lesions evident. Neurological: Alert and oriented x3. ASSESSMENT AND PLAN: 1. End-stage renal disease. Patient has had her dialysis treatment yesterday. She is expected to go to her outpatient dialysis treatment tomorrow. We have discussed compliance after discharge. 2. Electrolytes and acid-base balance. These remain stable. 3. Anemia. This has been stable. I would to thank you for allowing us to follow with this patient. Seen, data reviewed, discussed with Mela Troncoso on 09/21/16. I agree with the above assessment and plan of care. rg Dictated by TOBIN Medina for Gerardo Ma MD [facility]
--- NOTE | 2016-09-21 22:31 | DISCHARGE SUMMARY ---
ADMISSION DATE: 09/17/2016 DISCHARGE DATE: 09/21/2016 DISCHARGING DIAGNOSIS: Altered mental status due to hyperkalemia, potassium 7.6 due to skipping dialysis. SECONDARY DIAGNOSES: 1. End-stage renal disease on hemodialysis. 2. Insulin dependent diabetes. 3. Hypertension. 4. Obesity. 5. Hyperlipidemia. 6. Osteoarthritis. 7. Acid reflux disease. 8. Transient ischemic attack with stroke. 9. Peripheral neuropathy. 10. History of chronic anemia. CONSULTATIONS: Gerardo Ma M.D. PROCEDURES: Inpatient dialysis. BRIEF HISTORY: Please see the H and P that was done on 09/17/2016. In brief, she is a 58-year- old, white female who was admitted to the hospital with altered mental status, hyperkalemia due to skipping dialysis almost 3 times. She is very nauseous. Potassium 7.6. EKG showing some nonspecific intraventricular conduction delay. No elevated T-waves noted. Initially the patient was given calcium chloride, D50 with insulin, bronchodilators without any improvement. Dr. Ma was consulted. The patient had hemodialysis during this hospital course and was given symptomatic treatment. She is back to baseline and stable. LABORATORIES: At the time of discharge as follows: White cell count 6.2, hematocrit 28, platelets 120,000. SMA 7. Sodium 138, potassium 5.6, chloride 88, BUN 55, creatinine 9.1, glucose 152, proBNP 3500, amylase and lipase were normal. Chest x-ray: Mild congestive heart failure. DISCHARGE INSTRUCTIONS: Patient was discharged home with the following instructions: 1. Outpatient hemodialysis with Gerardo Ma M.D. 2. Follow up with Dr. Elizondo, primary care doctor. 3. Trazodone 50 at bedtime. 4. Clonidine 0.2 p.o. b.i.d. 5. Coreg 25 p.o. b.i.d. 6. Lyrica 300 p.o. b.i.d. 7. NovoLog insulin and sliding scale. 8. Seroquel 100 at bedtime. 9. Plavix 75 daily. 10. Cinnamon 500 p.o. b.i.d. 11. Aspirin 80 mg daily. 12. Folic acid 0.8 mg daily. 13. Lantus 30 units subcutaneous at bedtime. 14. Losartan 100 daily. 15. Nifedipine 60 daily. 16. Hold the blood pressure medicine if systolic blood pressure less than 100. 17. Reglan 5 mg p.o. t.i.d. 18. [place] as needed. 19. Lipitor 10 daily. MTDD
== END 2016-09-21 11:35 | disposition home or self-care (01) | DRG 640 ==
LOC: ED 15:28 → EDIPHOLD 17:29 → 3S 18:07
PROVIDERS: ADMIT Internal Medicine; ATTEND Internal Medicine
PROC: 5A1D60Z (ICD-10-PCS; principal; 2016-09-17)
DX: E87.5 Hyperkalemia (principal); N18.6 End stage renal disease; I12.0 Hypertensive chronic kidney disease with stage 5 chronic kidney disease or end stage renal disease; E11.22 Type 2 diabetes mellitus with diabetic chronic kidney disease; E11.42 Type 2 diabetes mellitus with diabetic polyneuropathy; E11.43 Type 2 diabetes mellitus with diabetic autonomic (poly)neuropathy; K31.84 Gastroparesis; J44.9 Chronic obstructive pulmonary disease, unspecified; D63.8 Anemia in other chronic diseases classified elsewhere; E78.5 Hyperlipidemia, unspecified; K21.9 Gastro-esophageal reflux disease without esophagitis; M19.90 Unspecified osteoarthritis, unspecified site; R01.1 Cardiac murmur, unspecified; Z91.15 Patient's noncompliance with renal dialysis; E66.9 Obesity, unspecified; Z79.899 Other long term (current) drug therapy; Z79.4 Long term (current) use of insulin; Z79.02 Long term (current) use of antithrombotics/antiplatelets; Z79.82 Long term (current) use of aspirin; Z86.73 Personal history of transient ischemic attack (TIA), and cerebral infarction without residual deficits; Z90.49 Acquired absence of other specified parts of digestive tract; Z82.49 Family history of ischemic heart disease and other diseases of the circulatory system; Z83.3 Family history of diabetes mellitus
CPT/HCPCS: 36415; 71020; 80048; 80053; 82150; 82550; 82805; 82948; 83036; 83690; 83735; 83880; 84132; 84484; 85025; 85610; 85730; 87804; 93005; 94640; 96365; 96372; 96375; C9113; J0610; J0885; J1644; J1815; J2550; J7030; Q2038; S0164

== ENCOUNTER 2016-09-24 16:45 | Emergency (ER) | payer OTHER ==
--- NOTE | 2016-09-24 17:17 | PROVIDER DOCUMENTATION ---
HPI-General Adult - General Source: patient, family - History of Present Illness -Gen Adult Nature of Presenting Problems: Pt is a 51 yof with a 5 year hx of dialysis that presents to er with cc of generalized weakness and bilateral lower extremity edema. Pt reports she does dialysis on ,, and missed her dialysis today bc she was to weak to go. Pt reports she was hospitalized last tuesday for the same thing dialysized on Tuesday ,Tuesday and then Tuesday. Last Dialysis was Tuesday of this week. Pt reports she was discharged on Tuesday but reports she thinks she was let go to soon bc she still isnt feeling better. Pt reports nausea and diarrhea. Diarrhea resolved today. Location of Pain/Injury: reports: generalized Quality of Pain: reports: none Severity: reports: severe Onset/Duration: reports: 3 days ago Timing: reports: still present Similar Symptoms Previously?: Yes Recently seen or treated by another doctor?: Yes <Ramirez Aguilar - Last Filed: 09/24/16 17:45> <Chai Jacques - Last Filed: 09/24/16 19:05> <Ervin Delgadillo - Last Filed: 09/24/16 19:08> - General Chief Complaint: Edema Stated Complaint: EDEMA Time Seen by Provider: 09/24/16 17:00 Allergies/Adverse Reactions: Patient Allergies Allergy/AdvReac Type Severity Reaction Status Date / Time rizatriptan benzoate * Allergy Severe ANAPHYLAXIS Verified 09/24/16 17:17 [From Maxalt] ciprofloxacin [From Cipro] Allergy Mild Unknown Verified 09/24/16 17:17 ciprofloxacin HCl * Allergy Mild Unknown Verified 09/24/16 17:17 [From Cipro] ondansetron HCl * Allergy Mild HEADACHE Verified 09/24/16 17:17 [From Zofran] Sulfa (Sulfonamide Allergy Unknown Verified 09/24/16 17:17 Antibiotics) Home Medications: Home Medication List Medication Instructions Recorded Confirmed Last Taken Type Trazodone [Desyrel] 50 mg PO QHS 09/30/13 09/24/16 09/23/16 20:00 History Clonidine [Catapres] 0.2 mg PO BID #60 tablet 07/07/15 09/24/16 09/24/16 08:00 Rx Carvedilol [Coreg] 25 mg PO BID #60 tablet 09/25/15 09/24/16 09/24/16 08:00 Rx Pregabalin [Lyrica] 300 mg PO BID 10/02/15 09/24/16 09/24/16 08:00 History Insulin Lispro [Humalog] See Protocol SQ DIRECTED #0 01/26/16 09/24/16 08:00 Rx cartridge Aspirin [Aspirin EC] 81 mg PO DAILY 04/08/16 09/24/16 09/24/16 08:00 History Cinnamon Bark [Cinnamon] 500 mg PO BID 04/08/16 09/24/16 09/24/16 08:00 History Clopidogrel Bisulfate [Plavix] 75 mg PO DAILY 04/08/16 09/24/16 09/24/16 08:00 History Folic Acid/Vitamin B Comp W-C 0.8 mg PO DAILY 04/08/16 09/24/16 09/24/16 08:00 History [Folic Acid Xtra Caplet] Insulin Glargine [Lantus] 30 unit SUBQ QHS 04/08/16 09/24/16 04/07/16 21:00 History Losartan [Cozaar] 100 mg PO DAILY 04/08/16 09/24/16 09/24/16 08:00 History Quetiapine Fumarate [Seroquel] 100 mg PO DAILY 04/08/16 09/24/16 09/24/16 08:00 History Hydrocodone/APAP 7.5 mg/325 mg 1 each PO Q6H PRN PRN #0 tablet 04/14/1609/24/16 08:00 Rx [[place]-7.5] Metoclopramide [Reglan] 5 mg PO TID AC #0 tablet 04/14/16 09/24/16 09/24/16 08: 00 Rx Nifedipine E.r. [Procardia ER] 60 mg PO DAILY #0 tablet 04/14/16 09/24/16 08:00 Rx ATORVAstatin [Lipitor] 10 mg PO QHS 09/17/16 09/24/16 09/23/16 20:00 History Fluoxetine HCl [Prozac] 20 mg PO DAILY #30 capsule 09/24/16 Unknown Rx Review of Systems - Adult - REVIEW OF SYSTEMS - ADULT Constitutional: reports: see HPI, fatique, other (Lower extremity edema and generalized weakness). denies: chills, fever Eyes: reports: no symptoms reported Ears, Nose, Mouth & Throat: denies: ear pain, sinus problem, throat pain Cardiovascular: reports: no symptoms reported Respiratory: denies: cough, shortness of breath, wheezing Gastrointestinal: reports: no symptoms reported Genitourinary: reports: no symptoms reported Musculoskeletal: reports: no symptoms reported Integumentary: reports: no symptoms reported Neurological: denies: ataxia, dizziness/vertigo, headache/migraines, numbness, paresthesia, seizure Psychiatric: reports: no symptoms reported Endocrine: reports: no symptoms reported Hematologic/Lymphatic: reports: no symptoms reported Allergic/Immunologic: reports: no symptoms reported All Other Systems: Reviewed and Negative <Ramirez Aguilar - Last Filed: 09/24/16 17:45> Past History - Adult - PAST MEDICAL HISTORY-ADULT Review of Records: reports: Nursing Assessment Review, Medications Reviewed Major Childhood Illnesses: reports: denies history Cardiovascular: reports: CHF, HTN, murmur Respiratory: reports: asthma, COPD Gastrointestinal: reports: GERD Obstetrical/Gynecological: reports: denies history Genitourinary: reports: dialysis (TTS), ESRD Musculoskeletal: reports: arthritis Neurological: reports: speech difficulty Psychiatric: reports: depression Endocrine/Immune: reports: Diabetes Other Conditions: reports: denies history - PRIOR SURGERIES/PROCEDURES Surgical/Procedure History: reports: appendectomy, cholecystectomy, hysterectomy , indwelling device (AV fist left arm), orthopedic (extremity) - PRIOR HOSPITALIZATIONS Prior Hospitalizations: reports: none - IMMUNIZATION STATUS Childhood Immunizations: See Nurse Assessment Flu Vaccine: See Nurse Assessment - FAMILY HISTORY Family History: reviewed, not pertinent - SOCIAL HISTORY Smoking: denies Substance Use: none/never <Ramirez Aguilar - Last Filed: 09/24/16 17:45> Physical Exam-General - PHYSICAL EXAM-ADULT Initial Vital Signs Reviewed: Yes - CONSTITUTIONAL General Appearance: alert, no apparent distress. negative: appears well - EYES Eyes: PERRL/EOMI - NECK Neck: non-tender, full range of motion, supple, normal inspection - RESPIRATORY Respiratory: lungs clear, normal breath sounds, no pleuratic chest pain, no respiratory distress, no accessory muscle use - CARDIOVASCULAR Cardiovascular: regular rate, rhythm - GASTROINTESTINAL (ABDOMEN) Abdominal Exam: non tender, soft, no organomegaly, no pulsatile mass - MUSCULOSKELETAL Extremity: normal range of motion, non-tender, pedal edema (1+ bilateral). negative: calf tenderness, deformity, erythema, inflammation, tenderness - SKIN Integumentary: normal turgor, warm/dry, pallor - PSYCHIATRIC Psych/Mental Status: normal mood/affect, normal thought content, normal thought process, oriented x 3 <AguilarRamirez - Last Filed: 09/24/16 17:45> Progress - PLAN OF CARE/RESULTS Progress/Plan/Lab Results: Orders Category Date Time Status Cardiac Monitoring DIRECTED Care 09/24/16 17:10 Active Saline Loc NOW Care 09/24/16 17:10 Active CHEST-PORTABLE [RAD] Stat Exams 09/24/16 17:10 Ordered CBC WITH ELECTRONIC DIFF [HEME] Stat Lab 09/24/16 17:10 Uncollected CK PROFILE [SP CHEM] Stat Lab 09/24/16 17:10 Uncollected COMPREHENSIVE METABOLIC PANEL [CHEM] Stat Lab 09/24/16 17:10 Uncollected INFLUENZA SCREEN A/B Stat Lab 09/24/16 17:10 Uncollected MAGNESIUM [CHEM] Stat Lab 09/24/16 17:10 Uncollected PRO B-NATRIURETIC PEPTIDE Stat Lab 09/24/16 17:10 Uncollected PROTIME WITH INR [COAG] Stat Lab 09/24/16 17:10 Uncollected PTT [COAG] Stat Lab 09/24/16 17:10 Uncollected TROPONIN T Stat Lab 09/24/16 17:10 Uncollected EKG [EKG] Stat Ther 09/24/16 17:10 Ordered Vital Signs - 24 hr 09/24/16 17:00 Temperature 97.5 F L Pulse Rate 57 L Respiratory 16 Rate Blood Pressure 123/75 O2 Sat by Pulse 100 Oximetry - CHANGE OF SHIFT REPORT (ED Provider) Report Given and Care Transferred to:: Time of Transfer: 18:00 Items Pending: Labs, XRAY Results Tentative Impression of Patient: needs dialysis <JeffRamirez - Last Filed: 09/24/16 17:45> - PLAN OF CARE/RESULTS Progress/Plan/Lab Results: 1850: Dr. Jacques paged Dr. Gooden to discuss POC for pt's dialysis management. Vital Signs - 24 hr 09/24/16 09/24/16 17:00 18:35 Temperature 97.5 F L Pulse Rate 57 L 53 L Respiratory 16 16 Rate Blood Pressure 123/75 124/78 O2 Sat by Pulse 100 96 Oximetry Orders Category Date Time Status Cardiac Monitoring DIRECTED Care 09/24/16 17:10 Active Saline Loc NOW Care 09/24/16 17:10 Active CHEST-PORTABLE [RAD] Stat Exams 09/24/16 17:10 Draft CBC WITH ELECTRONIC DIFF [HEME] Stat Lab 09/24/16 17:32 Completed CK PROFILE [SP CHEM] Stat Lab 09/24/16 17:32 Completed COMPREHENSIVE METABOLIC PANEL [CHEM] Stat Lab 09/24/16 17:32 Completed INFLUENZA SCREEN A/B Stat Lab 09/24/16 17:27 Completed MAGNESIUM [CHEM] Stat Lab 09/24/16 17:32 Completed PRO B-NATRIURETIC PEPTIDE Stat Lab 09/24/16 17:32 Completed PROTIME WITH INR [COAG] Stat Lab 09/24/16 17:32 Completed PTT [COAG] Stat Lab 09/24/16 17:32 Completed TROPONIN T Stat Lab 09/24/16 17:32 Completed Fluoxetine [Prozac] Med 09/24/16 19:01 Discontinued 20 mg PO NOW ONE EKG [EKG] Stat Ther 09/24/16 17:10 Ordered Laboratory Tests 09/24/16 09/24/16 09/24/16 17:32 17:32 17:32 WBC 6.94 RBC 3.34 L Hgb 10.2 L Hct 30.9 L MCV 92.5 MCH 30.5 MCHC 33.0 RDW Std Deviation 13.4 Plt Count 141 MPV 12.0 H Immature Gran % (Auto) 0.4 Neut % (Auto) 63.9 Lymph % (Auto) 19.3 L [place] % (Auto) 11.8 H Eos % (Auto) 4.3 Baso % (Auto) 0.3 Immature Gran # (Auto) 0.03 Neut # (Auto) 4.43 Lymph # (Auto) 1.34 [place] # (Auto) 0.82 H Eos # (Auto) 0.30 Baso # (Auto) 0.02 PT INR PTT (Actin FS) Sodium 128 L Potassium 4.9 Chloride 88 L Carbon Dioxide 24 L Anion Gap 16 BUN 42 H Creatinine 6.9 H Estimated GFR/1.73 m2 6 BUN/Creatinine Ratio 6 Glucose 244 H Calculated Osmolality 276 Calcium 9.5 Magnesium 1.8 Total Bilirubin 0.41 AST 11 ALT 8 L Alkaline Phosphatase 124 H Creatine Kinase 48 Troponin T Ggi-D-Yxviagposdk Pept 25794 H Total Protein 7.6 Albumin 3.6 Globulin 4.0 Albumin/Globulin Ratio 0.9 09/24/16 09/24/16 17:32 17:32 WBC RBC Hgb Hct MCV MCH MCHC RDW Std Deviation Plt Count MPV Immature Gran % (Auto) Neut % (Auto) Lymph % (Auto) [place] % (Auto) Eos % (Auto) Baso % (Auto) Immature Gran # (Auto) Neut # (Auto) Lymph # (Auto) [place] # (Auto) Eos # (Auto) Baso # (Auto) PT 12.6 H INR 1.19 PTT (Actin FS) 31.9 Sodium Potassium Chloride Carbon Dioxide Anion Gap BUN Creatinine Estimated GFR/1.73 m2 BUN/Creatinine Ratio Glucose Calculated Osmolality Calcium Magnesium Total Bilirubin AST ALT Alkaline Phosphatase Creatine Kinase Troponin T 0.362 H* Agp-S-Ytzdoxzpxvf Pept Total Protein Albumin Globulin Albumin/Globulin Ratio - REASSESSMENT Reassessment #1 Time Reassessed: 18:52 Status: other (Dr. Jacques discussed results of pt's labs and informed her that everything was normal, pt told Dr. Jacques that she has become depressed due to her constant dialysis.) - CONSULTS/PCP/HOSPITALIST Notification #1 *Consult/PCP/Hospitalist*: Dr. Gooden ([employer]) Time Discussed: 19:00 Consult Disposition: other (Dr. Jacques gave report to Dr. Gooden and Dr. Gooden said he's call back after seeing if he could find an arrangement for pt 's dialysis.) #2 Consult: Dr. Gooden Time Discussed: 19:02 Consult Disposition: other (Dr. Gooden reports for pt to attend Dialysis at 1015 in the morning.) <Ervin Delgadillo - Last Filed: 09/24/16 19:08> Departure <Ramirez Aguilar - Last Filed: 09/24/16 17:45> - Departure Time of Disposition Order: 19:05 <Chai Jacques - Last Filed: 09/24/16 19:05> - Departure Time of Disposition Order: 19:07 Certified Medical Emergency: Emergent <Ervin Delgadillo - Last Filed: 09/24/16 19:08> - Departure DIAGNOSIS: ESRD (end stage renal disease) on dialysis Depression Qualifiers: Depression Type: major depressive disorder Major depression recurrence: single episode Active/Remission status: currently active Major depression episode severity: moderate Qualified Code(s): F32.1 - Major depressive disorder, single episode, moderate Disposition: HOME 01 Condition: Stable Additional Instructions: Show up for dialysis at 1015 in the morning tomorrow. ED Follow Up Instructions: You have been treated by a care provider in the Emergency Department. These instructions are being provided to you so you can have an understanding of how to care for yourself upon discharge. Upon discharge from the Emergency Department, you are responsible for making arrangements for follow-up care by a physician of your choice. Take all prescribed medications as directed. Return to the Emergency Department immediately for any new or worsening symptoms. You may call the Physician Referral phone number at [phone] to obtain a list of Physicians who are taking new patients. Prescriptions: Fluoxetine HCl [Prozac] 20 mg PO DAILY #30 capsule Referrals: Yared Elizondo MD [Primary Care Provider] - Attestation - Scribe Verification/Attestation Scribe:: Ramirez Aguilar Acting as Scribe for:: Jana Aguilar Scribe documention review:: This chart was documented by a scribe and accurately reflects the service the provider performed and the decisions made by the provider. - Scribe Verification/Attestation #2 Shift Change Time: 18:00 Scribe Name: Ervin Delgadillo Acting as Scribe for:: Chai Jacques <Ramirez Aguilar - Last Filed: 09/24/16 17:45> - Scribe Verification/Attestation Scribe:: Ervin Delgadillo Acting as Scribe for:: Chai Jacques Scribflorencia documention review:: This chart was documented by a scribe and accurately reflects the service the provider performed and the decisions made by the provider. <Ervin Delgadillo - Last Filed: 09/24/16 19:08> Physician Attestation
[2016-09-24 17:50] LABS: MANUAL DIFF NEEDED? NO
[2016-09-24 18:09] LABS: BASO% 0.3 % (0.0-0.8); EOS% 4.3 % (0.0-10.0); HEMATOCRIT 30.9 % (37.0-47.0); HEMOGLOBIN 10.2 g/dL (12.0-16.0); IMM GRAN# 0.03 X1000 (0.0-0.04); IMM GRAN% 0.4 % (0.0-0.5); LYMPH# 1.34 X1000 (1.2-3.4); LYMPH% 19.3 % (20.5-51.1); MCH 30.5 PG (27-31); MCV 92.5 FL (81-99); MONO# 0.82 X1000 (0.11-0.59); MONO% 11.8 % (1.7-9.3); NEUT% 63.9 % (42.2-75.2); PLT 141 X1000 (130-400); RBC 3.34 XMIL (4.2-5.4)
--- NOTE | 2016-09-24 18:10 | Diag Imaging Result Document ---
PROCEDURE NAME: CHEST-PORTABLE - 09/24/2016 AP PORTABLE CHEST: TIME: 1720 hours FINDINGS: The appearance of the chest has not changed significantly since 09/17/2016. The left ventricle is somewhat prominent. IMPRESSION: Stable chest.
[2016-09-24 18:28] LABS: ALBUMIN 3.6 g/dL (3.5-5.0); CALCIUM 9.5 mg/dL (8.8-10.2); MAGNESIUM 1.8 mg/dL (1.5-2.7); POTASSIUM 4.9 mmol/L (3.5-5.1); TOTAL BILIRUBIN 0.41 mg/dL (0.20-1.00); TOTAL PROTEIN 7.6 g/dL (6.3-8.3)
[2016-09-24 18:34] LABS: INR 1.19; PROTIME 12.6 Seconds (9.2-11.7); PTT 31.9 Seconds (22.0-36.0)
[2016-09-24] MEDS ORDERED: PROZAC PO ONE (19:01)
[2016-09-24 19:22] VITALS: BP 126/78
== END 2016-09-24 19:43 | disposition home or self-care (01) ==
LOC: EDBD → SUPCPDRO 16:45 → ED 16:45
DX: I12.0 Hypertensive chronic kidney disease with stage 5 chronic kidney disease or end stage renal disease (principal); N18.6 End stage renal disease; F32.1 Major depressive disorder, single episode, moderate; R53.1 Weakness; R60.0 Localized edema; R11.0 Nausea; R19.7 Diarrhea, unspecified; R53.83 Other fatigue; Z79.899 Other long term (current) drug therapy; I50.9 Heart failure, unspecified; J44.9 Chronic obstructive pulmonary disease, unspecified; Z99.2 Dependence on renal dialysis; M19.90 Unspecified osteoarthritis, unspecified site; E11.9 Type 2 diabetes mellitus without complications; R47.9 Unspecified speech disturbances; Z79.02 Long term (current) use of antithrombotics/antiplatelets; Z79.82 Long term (current) use of aspirin; Z79.4 Long term (current) use of insulin
CPT/HCPCS: 71010; 80053; 82550; 83735; 83880; 84484; 85025; 85610; 85730; 87804; 93005

== ENCOUNTER 2016-10-08 15:08 | Inpatient (IN) | payer OTHER ==
--- NOTE | 2016-10-08 16:21 | ED EKG INTERP ---
EKG Interpretation - EKG Time of EKG reading by physician:: 15:53 EKG Read and Signed by:: Nikolas Humphrey EKG Interpretation (*Must complete 3 of following elements*): Abnormal Rate: 54 Rhythm: sinus rj with 1st deg av block [place]: left QRS: LBB Attestation - Scribe Verification/Attestation Scribe:: Ramirez Aguilar Acting as Scribe for:: Nikolas Humphrey Scribe documention review:: This chart was documented by a scribe and accurately reflects the service the provider performed and the decisions made by the provider.
[2016-10-08 16:58] LABS: MANUAL DIFF NEEDED? NO
[2016-10-08 17:10] LABS: BASO% 0.5 % (0.0-0.8); EOS# 0.17 X1000 (0.0-0.7); EOS% 2.9 % (0.0-10.0); HEMATOCRIT 32.1 % (37.0-47.0); HEMOGLOBIN 10.7 g/dL (12.0-16.0); IMM GRAN# 0.02 X1000 (0.0-0.04); IMM GRAN% 0.3 % (0.0-0.5); LYMPH# 1.59 X1000 (1.2-3.4); LYMPH% 26.7 % (20.5-51.1); MCH 30.7 PG (27-31); MCHC 33.3 g/dL (33-37); MONO# 0.89 X1000 (0.11-0.59); MONO% 14.9 % (1.7-9.3); MPV 11.7 FL (7.4-10.4); NEUT% 54.7 % (42.2-75.2); PLT 143 X1000 (130-400); RBC 3.49 XMIL (4.2-5.4)
[2016-10-08 17:27] LABS: ALBUMIN 3.5 g/dL (3.5-5.0); CALCIUM 9.1 mg/dL (8.8-10.2); POTASSIUM 5.2 mmol/L (3.5-5.1); TOTAL BILIRUBIN 0.37 mg/dL (0.20-1.00); TOTAL PROTEIN 7.6 g/dL (6.3-8.3)
--- NOTE | 2016-10-08 17:28 | PROVIDER DOCUMENTATION ---
HPI-General Adult - General Chief Complaint: Weakness Stated Complaint: N/V Time Seen by Provider: 10/08/16 16:02 Source: patient, family Allergies/Adverse Reactions: Patient Allergies Allergy/AdvReac Type Severity Reaction Status Date / Time rizatriptan benzoate * Allergy Mild SHORTNESS Verified 10/08/16 16:51 [From Maxalt] OF BREATH ciprofloxacin HCl * Allergy Unknown Unknown Verified 10/08/16 16:51 [From Cipro] Sulfa (Sulfonamide Allergy Unknown Unknown Verified 10/08/16 16:51 Antibiotics) ondansetron HCl * AdvReac Mild HEADACHE Verified 10/08/16 16:51 [From Zofran] Home Medications: Home Medication List Medication Instructions Recorded Confirmed Last Taken Type Trazodone [Desyrel] 50 mg PO QHS 09/30/13 10/08/16 10/08/16 History Clonidine [Catapres] 0.2 mg PO BID #60 tablet 07/07/15 10/08/16 10/08/16 Rx Carvedilol [Coreg] 25 mg PO BID #60 tablet 09/25/15 10/08/16 10/08/16 Rx Pregabalin [Lyrica] 300 mg PO BID 10/02/15 10/08/16 10/08/16 History Insulin Lispro [Humalog] See Protocol SQ DIRECTED #0 01/26/16 10/08/16 Rx cartridge Aspirin [Aspirin EC] 81 mg PO DAILY 04/08/16 10/08/16 10/08/16 History Cinnamon Bark [Cinnamon] 500 mg PO BID 04/08/16 10/08/16 10/08/16 History Clopidogrel Bisulfate [Plavix] 75 mg PO DAILY 04/08/16 10/08/16 10/08/16 History Folic Acid/Vitamin B Comp W-C 0.8 mg PO DAILY 04/08/16 10/08/16 10/08/16 History [Folic Acid Xtra Caplet] Insulin Glargine [Lantus] 30 unit SUBQ QHS 04/08/16 10/08/16 10/08/16 History Losartan [Cozaar] 100 mg PO DAILY 04/08/16 10/08/16 10/08/16 History Quetiapine Fumarate [Seroquel] 100 mg PO DAILY 04/08/16 10/08/16 10/08/16 History Hydrocodone/APAP 7.5 mg/325 mg 1 each PO Q6H PRN PRN #0 tablet 04/14/1610/08/16 Rx [[place]-7.5] Metoclopramide [Reglan] 5 mg PO TID AC #0 tablet 04/14/16 10/08/16 10/08/16 Rx Nifedipine E.r. [Procardia ER] 60 mg PO DAILY #0 tablet 04/14/16 10/08/16 Rx ATORVAstatin [Lipitor] 10 mg PO QHS 09/17/16 10/08/16 10/08/16 History Fluoxetine HCl [Prozac] 20 mg PO DAILY #30 capsule 09/24/16 10/08/16 10/08/16 Rx - History of Present Illness -Gen Adult Nature of Presenting Problems: 51 y/o f presented to ER complaining of generalized weakness that has been ongoing for a few weeks but has been getting worse lately. She denies anyother symptoms including dizziness, fainting, LOC, chest pain, SOB, palpitation, however she admitted to diarrhea which started a couple of days ago. She also denied fever or chills. Patient has a history of ESRD and oon HD. She stated that she visited the ER many days ago with the same complaint and the doctor told her that "he thinks that this is all from depression" and started her on Prozac which she thinks made her condition worse. Location of Pain/Injury: reports: generalized Onset/Duration: reports: last week Context/Activities at Onset: reports: rest Modifying Factors: improves with: nothing Associated Symptoms: reports: diarrhea, nausea Similar Symptoms Previously?: Yes Recently seen or treated by another doctor?: Yes Review of Systems - Adult - REVIEW OF SYSTEMS - ADULT Constitutional: reports: [place]. denies: chills, fever, night sweats Eyes: reports: no symptoms reported Ears, Nose, Mouth & Throat: reports: no symptoms reported Respiratory: reports: no symptoms reported Gastrointestinal: reports: diarrhea Genitourinary: reports: urinary retention, other (ESRD ON HD) Musculoskeletal: reports: no symptoms reported Integumentary: reports: no symptoms reported Neurological: denies: dizziness/vertigo, headache/migraines, loss of balance, seizure, syncope Psychiatric: reports: anxiety, anti-depressant use Endocrine: reports: no symptoms reported Hematologic/Lymphatic: reports: transfusions Past History - Adult - PAST MEDICAL HISTORY-ADULT Review of Records: reports: Nursing Assessment Review, Medications Reviewed Major Childhood Illnesses: reports: denies history Cardiovascular: reports: CHF, HTN, murmur Respiratory: reports: asthma, COPD Gastrointestinal: reports: GERD Obstetrical/Gynecological: reports: denies history Genitourinary: reports: dialysis (TTS), ESRD Musculoskeletal: reports: arthritis Neurological: reports: speech difficulty Psychiatric: reports: depression Endocrine/Immune: reports: Diabetes Other Conditions: reports: denies history - PRIOR SURGERIES/PROCEDURES Surgical/Procedure History: reports: appendectomy, cholecystectomy, hysterectomy , indwelling device (AV fist left arm), orthopedic (extremity) - PRIOR HOSPITALIZATIONS Prior Hospitalizations: reports: none - IMMUNIZATION STATUS Childhood Immunizations: See Nurse Assessment Flu Vaccine: See Nurse Assessment - FAMILY HISTORY Family History: reviewed, not pertinent Physical Exam-General - PHYSICAL EXAM-ADULT Initial Vital Signs Reviewed: Yes - CONSTITUTIONAL General Appearance: alert, obese, lethargic - EYES Eyes: PERRL/EOMI - HEAD, EARS, NOSE, MOUTH & THROAT HENMT: normocephalic/atraumatic - NECK Neck: supple - RESPIRATORY Respiratory: lungs clear - CARDIOVASCULAR Cardiovascular: bradycardia - GASTROINTESTINAL (ABDOMEN) Abdominal Exam: normal bowel sounds, soft - GENITOURINARY Female Genitalia/Pelvic Exam: deferred Rectal Exam: deferred - LYMPHATIC Lymphatic: no adenopathy - MUSCULOSKELETAL Extremity: normal range of motion, pedal edema - NEUROLOGIC Neurologic: grossly normal - PSYCHIATRIC Psych/Mental Status: oriented x 3, depressed affect Progress - PLAN OF CARE/RESULTS Progress/Plan/Lab Results: Vital Signs - 24 hr 10/08/16 10/08/16 15:42 16:49 Temperature 97.6 F Pulse Rate 54 L 50 L Respiratory 18 16 Rate Blood Pressure 88/66 115/76 O2 Sat by Pulse 99 99 Oximetry Laboratory Tests 10/08/16 10/08/16 16:30 16:30 WBC 5.96 RBC 3.49 L Hgb 10.7 L Hct 32.1 L MCV 92.0 MCH 30.7 MCHC 33.3 RDW Std Deviation 13.7 Plt Count 143 MPV 11.7 H Immature Gran % (Auto) 0.3 Neut % (Auto) 54.7 Lymph % (Auto) 26.7 [place] % (Auto) 14.9 H Eos % (Auto) 2.9 Baso % (Auto) 0.5 Immature Gran # (Auto) 0.02 Neut # (Auto) 3.26 Lymph # (Auto) 1.59 [place] # (Auto) 0.89 H Eos # (Auto) 0.17 Baso # (Auto) 0.03 Sodium 128 L Potassium 5.2 H Chloride 86 L Carbon Dioxide 20 L Anion Gap 22 BUN 64 H Creatinine 9.3 H Estimated GFR/1.73 m2 4 BUN/Creatinine Ratio 7 Glucose 354 H Calculated Osmolality 290 Calcium 9.1 Magnesium 2.0 Total Bilirubin 0.37 AST 10 ALT 8 L Alkaline Phosphatase 129 H Creatine Kinase 50 Total Protein 7.6 Albumin 3.5 Globulin 4.1 Albumin/Globulin Ratio 0.9 - REASSESSMENT Reassessment #1 Time Reassessed: 18:46 Status: unchanged - CONSULTS/PCP/HOSPITALIST Notification #1 *Consult/PCP/Hospitalist*: dr. olivas Time Discussed: 18:03 Reason/Comments: NSTEMI - Missled HD - uncontrolled DM Consult Disposition: Admit #2 Consult: dr. Clarence Tolbert Time Discussed: 18:47 Reason/Comments: NSTEMI vs [place] for CCU admission Consult Disposition: other (cardiology consultation for CCU) Departure - Departure Time of Disposition Order: 19:21 DIAGNOSIS: NSTEMI (non-ST elevated myocardial infarction), Dialysis procedure, ESRD (end stage renal disease) on dialysis, Nausea & vomiting Disposition: ADMITTED INPATIENT 09 Certified Medical Emergency: Emergent Condition: Poor
[2016-10-08 17:32] LABS: INR 1.17; PROTIME 11.9 Seconds (9.2-11.7); PTT 29.6 Seconds (22.0-36.0)
[2016-10-08 17:44] LABS: ALLEN TEST NO; BE -2.1 mmoll (-3.0-3.0); BLOOD TYPE ARTERIAL; DRAW SITE R BRACHIAL; O2(CT) 13.9 mL/dL (15.0-23.0); PCO2(98.6) 44 mmHg (35-45); PO2(98.6) 66 mmHg (60-100); SAMPLE BLOOD; SAO2 93.5 % (95.0-100.0); THB 10.8 g/dL (11.5-17.4); pH(98.6) 7.34 (7.35-7.45)
[2016-10-08 17:45] LABS: MODALITY ROOM AIR
[2016-10-08] MEDS ORDERED: LIPITOR PO ONE (18:07)
[2016-10-08] MEDS ORDERED: LOVENOX 1 MG/KG SUBQ ONE (18:07)
[2016-10-08] MEDS ORDERED: HUMULIN R IV ONE (18:09)
[2016-10-08] MEDS ORDERED: LOVENOX SUBQ ONE (18:30)
[2016-10-08] MEDS ORDERED: ASPIRIN PO ONE (21:36)
[2016-10-08] MEDS: LIPITOR PO SCH (21:38)
[2016-10-08] MEDS: LYRICA PO SCH (21:46)
[2016-10-08] MEDS: ROCEPHIN 1 GM/NS 50 ML IV SCH (21:47)
[2016-10-08] MEDS: COREG PO SCH (21:48)
[2016-10-08] MEDS: HUMALOG SUBQ SCH (21:52)
[2016-10-08] MEDS: LANTUS SUBQ SCH (21:53)
[2016-10-08] MEDS ORDERED: INSULIN PEN NEEDLES ONE (21:54)
[2016-10-09 05:40] LABS: MANUAL DIFF NEEDED? NO
[2016-10-09 05:59] LABS: BASO% 0.4 % (0.0-0.8); EOS# 0.29 X1000 (0.0-0.7); EOS% 5.3 % (0.0-10.0); HEMATOCRIT 30.9 % (37.0-47.0); HEMOGLOBIN 10.4 g/dL (12.0-16.0); IMM GRAN# 0.02 X1000 (0.0-0.04); IMM GRAN% 0.4 % (0.0-0.5); LYMPH% 36.5 % (20.5-51.1); MCH 30.8 PG (27-31); MCHC 33.7 g/dL (33-37); MCV 91.4 FL (81-99); MONO# 0.78 X1000 (0.11-0.59); MONO% 14.2 % (1.7-9.3); MPV 11.5 FL (7.4-10.4); NEUT% 43.2 % (42.2-75.2); PLT 135 X1000 (130-400); RBC 3.38 XMIL (4.2-5.4)
[2016-10-09] MEDS: CATAPRES PO SCH ×3 (06:02→20:40)
[2016-10-09] MEDS: HUMALOG SUBQ SCH ×4 (06:02→20:40)
[2016-10-09] MEDS: SODIUM CHLORIDE 0.9% INJ SCH (06:09)
[2016-10-09] MEDS: PROTONIX IV SCH (06:09)
[2016-10-09] MEDS: REGLAN PO SCH ×3 (06:12→15:09)
[2016-10-09 06:43] LABS: CALCIUM 9.6 mg/dL (8.8-10.2); POTASSIUM 5.1 mmol/L (3.5-5.1); TOTAL BILIRUBIN 0.32 mg/dL (0.20-1.00); TOTAL PROTEIN 6.7 g/dL (6.3-8.3)
[2016-10-09 06:53] LABS: INR 1.19; PROTIME 12.1 Seconds (9.2-11.7)
[2016-10-09] MEDS ORDERED: HEPARIN IV PRN (07:41)
[2016-10-09] MEDS ORDERED: NS 2,000 ML MISC PRN (07:41)
[2016-10-09] MEDS ORDERED: TIGHT: 0.2 ML/HR MISC PRN (07:41)
[2016-10-09 08:41] LABS: ALBUMIN 3.1 g/dL (3.5-5.0); CALCIUM 9.7 mg/dL (8.8-10.2); POTASSIUM 4.7 mmol/L (3.5-5.1); TOTAL BILIRUBIN 0.3 mg/dL (0.20-1.00); TOTAL PROTEIN 6.8 g/dL (6.3-8.3)
[2016-10-09] MEDS ORDERED: PROCARDIA ER PO SCH (09:00)
[2016-10-09] MEDS ORDERED: HEPARIN ONE (10:05)
[2016-10-09] MEDS ORDERED: NS 2,000 ML ONE (10:05)
--- NOTE | 2016-10-09 10:15 | Diag Imaging Result Document ---
PROCEDURE NAME: CHEST-2 VIEWS - 10/08/2016 CHEST, 2 VIEWS: COMPARISON: 09/24/2016. FINDINGS: Heart size appears upper normal and stable. There is mild prominence of infrahilar markings on the right. The remainder of the lungs appear essentially clear. There is no substantial pleural effusion or pneumothorax identified. IMPRESSION: Mild prominence of right infrahilar markings. [facility]
--- NOTE | 2016-10-09 10:22 | Diag Imaging Result Document ---
PROCEDURE NAME: ABDOMEN/PELVIS W/O CONTRAST - 10/09/2016 CT ABDOMEN AND PELVIS WITHOUT CONTRAST: No contrast administered per request of the referring provider. A dose-reduction protocol was used. COMPARISON: Compared with 01/18/2016. FINDINGS: There is mild subsegmental atelectasis or scarring at the lung bases. There are no acute abnormalities of the liver, spleen, adrenal glands, or pancreas identified. The gallbladder is surgically absent. There are no acute abnormalities of the kidneys identified. There is no hydronephrosis. There are extensive atherosclerotic calcifications noted similar to the previous exam. There are nonspecific small retroperitoneal lymph nodes similar to the previous exam. There is no evidence of bowel obstruction. The appendix is surgically absent. There is no substantial bowel wall thickening identified. There is no abscess identified. There is no free air. There is no substantial free fluid. Images of the pelvis show postsurgical changes of hysterectomy. There is questionable thickening of the urinary bladder shrestha with hazy external margins. This is somewhat less conspicuous compared to previous exam and could relate to scarring or to recurrent mild cystitis. IMPRESSION: 1. Questionable mild urinary bladder cystitis. 2. No other visible acute process. There are extensive atherosclerotic calcifications noted similar to the previous exam.
[2016-10-09] MEDS: COZAAR PO SCH (10:30)
[2016-10-09] MEDS: COREG PO SCH ×2 (10:30→20:39)
[2016-10-09] MEDS: NORCO-7.5 PO PRN ×2 (10:34→23:07)
[2016-10-09] MEDS: LYRICA PO SCH ×2 (10:34→20:39)
--- NOTE | 2016-10-09 11:47 | HISTORY AND PHYSICAL ---
CHIEF COMPLAINT: Lethargy and weakness. Ms. Cates is a 51-year-old, white female patient with multiple medical problems in the form of longstanding diabetes, poorly controlled, hypertension, hyperlipidemia, atherosclerotic cardiovascular and cerebrovascular disease, end-stage renal disease, on hemodialysis, peripheral neuropathy, not doing well last few days. The patient was feeling weak and lethargic. She was staying in the bed. According to she had hard time walking across the room partially due to lack of motivation and partially due to weakness. Her weakness and lethargy was getting worse. The patient was supposed to go for dialysis on the day of admission, and she could not. The patient came to the emergency room. Evaluated by ER physician. Because of her significant weakness, lethargy, the patient was admitted for further care. Her workup in the ER did reveal elevated troponin. The patient denied any typical chest pain, palpitation. Patient did have a dull headache, at times nausea, no vomiting. The patient did have diarrhea a few days ago but it improved. No high-grade fever. The patient did have some chills. No blood or mucus in the stool. The patient is not making any urine. The patient did have some leg swelling, generalized weakness. No heat or cold intolerance. History part was limited. No seizure-type episode. The patient was in the hospital many days ago. At that time her potassium was very high. The patient was treated and discharged home. The patient was told to be depressed and she was started on Prozac. Patient claims it made her symptoms worse. The patient was on Cymbalta before and she was doing better. ALLERGIES: Relpax, Cipro and rest from the list. HOME MEDICATIONS: Include patient is on Prozac, Lantus insulin, Seroquel, trazodone, Lipitor, aspirin, Coreg, clonidine, Plavix, folic acid, [place], Cozaar, Reglan, nifedipine, Lyrica. PAST MEDICAL HISTORY: Significant for longstanding hypertension, hyperlipidemia, insulin- dependent diabetes mellitus, end-stage renal disease, peripheral neuropathy, osteoarthritis, gastritis and reflux disease, peripheral vascular disease, TIA and CVA. The patient had nonhealing ulcer on the sacrum. Appendectomy, hysterectomy. The patient had AV fistula done. History of bowel resection for ischemic colon. FAMILY HISTORY: Significant for diabetes, hypertension and hyperlipidemia. PERSONAL HISTORY: . Lives with the . Nonsmoker. Denied alcohol or substance abuse. Needs minimal assistance in activities of daily living. REVIEW OF SYSTEMS: As per HPI. PHYSICAL EXAMINATION: GENERAL: Middle-aged white female patient, morbidly obese. In no acute distress. VITAL SIGNS: On admission blood pressure was 88/66, pulse 54, respiration 18, temperature 97.6 degrees. Her blood pressure improved to 115/76. SKIN: Dry turgor. HEENT: Head atraumatic, normocephalic. [place] conjunctivae. Anicteric sclerae. Extraocular muscle movement normal. Fundus cannot be penetrated. Good oral hygiene. No tonsillopharyngeal congestion or exudate. Ears and nose benign. NECK: Supple. No JVD, thyromegaly or lymphadenopathy. CHEST: Bilateral good air entry present. Bibasilar crepitation. No rales. CARDIOVASCULAR: S1 and S2 heard. No gallop or thrill. A 2-3/6 systolic murmur at the apex. ABDOMEN: Soft, globular. Bowel sounds present. No organomegaly or mass. EXTREMITIES: No cyanosis, clubbing. Minimal swelling both the legs. No acute DVT or acute vascular compromise. PRODUCT TESTER FIBERGLASS: The patient was weak and sleepy but easily arousable. Answering questions fairly well. Able to move all 4 limbs. LABORATORY DATA: Revealed a WBC count 5.96, hemoglobin 10.9, hematocrit 32.1, platelet count 143,000. PT/INR 1.17. PTT was 29.6. Blood gas pH 7.34, pCO2 44, PO2 was 66. This was done on room air. Her electrolytes: Sodium 128, potassium 5.2, BUN 64 creatinine 9.3, blood sugar was 354. Troponin was 2.3. Serum ketone was negative. Her EKG preliminary report: Sinus rhythm first-degree AV block. Left bundle branch block. CONSIDERATION: She admitted with weakness and lethargy. Patient ruled in for AR. Consideration is to look for any source of infection. We did chest x-ray, blood culture. Empirically started patient on Rocephin. Nephrology consult for her dialysis. The patient is hypotensive. We are going to hold her blood pressure medicine. Monitor her blood pressure closely. She does have diabetes mellitus poorly controlled. I am going to resume her Lantus at smaller dose and start her on sliding scale insulin. Other problems include situational depression, gastritis and reflux disease, peripheral neuropathy. The patient labs and medication noted. Coding Coordinator and lumber sorter going to follow patient with us. Overall plan and prognosis discussed with the patient and her . They are in agreement.
--- NOTE | 2016-10-09 11:50 | PROGRESS NOTE ---
DATE: 10/09/2016 SUBJECTIVELY: Ms. Cates is doing fair. She is still feeling weak. No energy. She denied any chest pain. No nausea, vomiting. No diarrhea. No high-grade fever or chills. PHYSICAL EXAMINATION: Her vital signs reviewed. Neck: Is supple. Lungs: Bibasilar crepitations. Heart: A 2-3/6 systolic murmur at the apex. Abdomen: Soft, globular. Bowel sounds present. Patient does have diffuse tenderness. No guarding or rigidity. Extremities: No cyanosis, clubbing, edema. OUTBOUND TELEMARKETER: Alert, awake, able to move all 4 limbs. CONSIDERATION: 1. Weakness, etiology not known. I did a septic workup. The patient is on Rocephin. Considering diffuse abdominal tenderness, low blood pressure, I am going to get CT scan of the abdomen and pelvis for further evaluation. Patient did have elevated troponin. Cardiology consult is requested. 2. End-stage renal disease. Arch Pad Cementer following patient with us. 3. History of hypertension. Blood pressure is low-normal. We are holding blood pressure medicine. 4. Diabetes mellitus. Patient is on sliding scale insulin. 5. Peripheral neuropathy. 6. Depression. Prozac was not helping. Patient was doing better on Effexor, will resume it. PLAN: Overall plan discussed with the patient and she is in agreement. Her electrolytes done today, the patient does have hyponatremia, sodium 128, BUN 66, creatinine 9.6. Anion gap was 23, potassium 5.1. I order cardiac isoenzymes but result is pending. CBC results reviewed.
[2016-10-09] MEDS ORDERED: HEPARIN 25,000 UNITS/D5W 250 ML IV SCH (12:00)
--- NOTE | 2016-10-09 12:39 | CONSULTATION ---
DATE OF CONSULTATION: 10/09/2016 INDICATION: [id number] MN. HISTORY OF PRESENT ILLNESS: Ms. Cates is a 51-year-old white female with a history of diabetes and end stage renal disease. She normally follows with Dr. Shafer. Last seen in the office in 08/2015. She apparently presented to the emergency room yesterday with complaints of just diffuse fatigue. This has been ongoing for a week and worsened to the point where yesterday she had some issues where she felt she could not stand up. She was evaluated in the ER and was found to have an elevated troponin. She adamantly denies any episodes of shortness of breath or significant chest discomfort. She has had some episodic nausea. She reports compliance with her dialysis with the exception of yesterday because she was in the ER. No recent fevers. She reports good oral intake. PAST MEDICAL HISTORY: 1. What appears to be moderate aortic stenosis. Her last echocardiogram per our system was in 08/2015. At that time, she had a mean gradient of around 19, peak of 36. This would be mild aortic stenosis, normal ejection fraction. 2. Gastroparesis. 3. End stage renal disease. 4. Hypertension. 5. Hyperlipidemia. 6. Diabetes mellitus. 7. Peripheral neuropathy. 8. History of TIAs. 9. Reflux disease. 10.Morbid obesity. SOCIAL HISTORY: No current tobacco use. FAMILY HISTORY: Significant for hypertension. REVIEW OF SYSTEMS: A 10-system review of systems is negative except for those things mentioned in the HPI. PHYSICAL EXAMINATION: During this hospitalization, she has been afebrile. Heart rates more recently have been 40s to 50s, blood pressure 122/75. General: She is in no acute distress. She is somewhat somnolent but wakes up and answers all questions appropriately. HEENT: Oropharynx is moist. Poor dentition. Eye examination shows pink conjunctivae, white sclerae. Neck: No obvious thyromegaly or thyroid tenderness. Cardiovascular: Regular rate and rhythm. She has somewhat distant heart sounds. She has no lower extremity edema. She has warm and well perfused lower extremities. She has no carotid bruits. Her chest exam sounds clear with poor inspiratory effort. No increased work of breathing. Her abdomen is soft, nontender and nondistended. She has no obvious organomegaly. Her skin exam was warm and dry throughout without any rashes. Neurologically, she seems to be moving all extremities well. She has a nonfocal examination. No sensation deficits. Psychiatric: She is somewhat somnolent but able to answer all questions appropriately. DIAGNOSTIC DATA: Her EKG at 1553 yesterday shows sinus bradycardia. She has a prolonged first degree block of 344 milliseconds. She has a nonspecific interventricular conduction delay that appears more on a left bundle type pattern. Her subsequent EKG at 1823 again seems to show this sinus bradycardia, again a prolonged first degree AV block and again with a nonspecific interventricular conduction delay, more of a left bundle type pattern. EKG in 09/2016 shows sinus bradycardia, prolonged first degree AV block, evidence for this nonspecific interventricular conduction delay which again has a left bundle type pattern. She had an abdominal CT which was reviewed. She had a chest x-ray which demonstrated suggestion of mild prominence of the right infrahilar markings. Her laboratory data shows white count of 5.5, hematocrit 30.9, platelet count of 135. Her INR is 1.19. Her sodium is 129, potassium 4.7, her BUN is 68, creatinine 9.9. Her troponin has been elevated, initial was 2.3, subsequent 2.16. She has not had an MB fraction. Her CK is normal. Her troponins in the past have been persistently elevated, but they have all been in the 0.1 to 0.4 type range. This 2.1 most recently is extremely high for her. Lactate yesterday was 2.5. ASSESSMENT: 1. [id number] myocardial infarction. 2. End stage renal disease. PLAN: We have made medication adjustments with the addition of a heparin drip. We will stop the nifedipine and place her on amlodipine 5 mg to achieve more of an antiischemic effect with less heart rate slowing. She is somewhat bradycardic. We will continue to watch her telemetry. We will continue the ARB that she is presently on. I will check her lipids in the morning. She is already on aspirin and Plavix presently. We will likely need to consider a cardiac catheterization on Tuesday. We will obtain an echocardiogram and EKG.
[2016-10-09] MEDS: PLAVIX PO SCH (15:08)
[2016-10-09] MEDS: NEPHRO-VITE PO SCH (15:08)
[2016-10-09] MEDS: EFFEXOR XR PO SCH (15:08)
[2016-10-09] MEDS: ASPIRIN EC PO SCH (15:09)
[2016-10-09] MEDS: HEPARIN 25,000 UNIT in NS 250 ML IV SCH (15:27)
--- NOTE | 2016-10-09 18:03 | CONSULTATION ---
DATE OF CONSULTATION: 10/09/2016 REASON FOR ADMISSION: Lethargy and increased weakness. REASON FOR CONSULT: End-stage renal disease with assistance with dialysis and medical management. CONSULTING PHYSICIAN: Dr. Elizondo. HPI: Ms. Cates is a 51-year-old white female who is known to our outpatient services for hemodialysis on Tuesday, Tuesday, Tuesday. Patient stated that Tuesday after her dialysis she had signed off early secondary to not feeling well. Patient stated that she did not go to her dialysis appointment yesterday evening secondary to having severe weakness. Patient presented to [facility] Emergency Department and in the ER it is found that she had significant weakness, lethargy and a low heart rate. Subsequently, she is admitted to ICU for further evaluation. Her labs revealed in the emergency room an elevated troponin which may possibly be related to her use of her AV fistula or possible atypical chest pain with palpitations. Patient states that she has had a dull headache without any nausea, vomiting or diarrhea. Recently she stated that she had diarrhea beginning of the week which had improved. She denies any fever, some chills, no hematuria, no hematemesis, positive for lower extremity swelling. Positive for weakness. Patient was recently admitted to the hospital approximately 1 month ago with hyperkalemia secondary to missed dialysis treatments and noncompliance. She states that she is depressed. She was started on Prozac at that time. She stated that her head made her symptoms worse and had been on Cymbalta in the past and is working with her primary care physician in regards with this. PAST MEDICAL HISTORY: She has end-stage renal disease with hemodialysis on Tuesday, Tuesday, Tuesday at the [facility]. She has hypertension, hyperlipidemia, insulin-dependent diabetes mellitus type 2. She has peripheral neuropathy, osteoarthritis, gastritis with reflux disease, peripheral vascular disease, she has a history of a TIA and CVA. She has a nonhealing ulcer on her sacrum. SURGICAL HISTORY: She has had an appendectomy, hysterectomy and AV fistula, a recent resection of ischemic colon within the last year, previous tunnel catheter. SOCIAL HISTORY: She is . She lives with her . Her family is attentive to her care mostly her mother and her sisters. She denies any alcohol or illicit drug use. No tobacco. She does need some minimal assistance with her activities of daily living mostly occurring within the last year or so. ALLERGIES: Listed as Relpax, Cipro and NSAIDS. HOME MEDICATIONS: Include Prozac, Lantus insulin, Seroquel, trazodone, Lipitor , aspirin, Coreg, clonidine, Plavix, folic acid, [place], Cozaar, Reglan, nifedipine and Lyrica. Patient also receives Aranesp, IV iron, Rocaltrol, Dialyvite and protein X on an outpatient basis as indicated per her labs. OBJECTIVE: Vital Signs: Temperature 96.4 degrees, blood pressure 122/75, heart rate 51, respirations 16, she is on room air. Last recorded saturation 94%. She has had 530 in. She has had 0 out. LABS: Sodium 128, potassium 5.1, chloride is 86, CO2 19, BUN 66, creatinine 9.6, glucose 165, anion gap 23, calcium 9.6, albumin 3. Her white count 5.48, hemoglobin 10.4, hematocrit 30.9 with a platelet count of a 135,000. Her pro time is 12.1 with an INR of 1.19. Her lactic acid is 2.5 with an acetone that is negative. Blood cultures are currently pending. PHYSICAL EXAMINATION: General: This is a 51-year-old white female who appears older than her stated age. She is in no acute distress. Skin: Warm and dry. HEENT: Normocephalic, atraumatic. Conjunctiva is pale. She has LATOYA. Mucous membranes are dry. Neck: Supple. Trachea midline. She has no JVD. Cardiovascular: Regular rate and rhythm. She has a positive systolic murmur at the apex. Lungs: Clear to auscultation anteriorly. Equal excursion. Abdomen: Round, soft, nontender. Positive bowel sounds. Extremities: No clubbing, no cyanosis, minimal edema to the lower extremities. She has an AV fistula noted to the upper arm. Integumentary: No rashes or lesions evident at this time. Back is not inspected. Neurological: She is alert and oriented x3. Arousable but sleepy. ASSESSMENT AND PLAN: 1. End-stage renal disease. Patient is due for her routine dialysis today since she has missed her treatment yesterday evening. We will place her on an appropriate potassium bath of 2 K. We will dialyze her for 3-1/2 hours, attempt to pull patient to her dry weight. 2. Electrolytes. Again mild hyperkalemia with an appropriate potassium bath on dialysis. 3. Hyponatremia with again correction on dialysis. 4. Acid-base balance. This is low again with correction on dialysis with a mild anion gap acidosis more likely secondary to her diabetes. She also has an elevated lactic level of 2.5. Dr. Elizondo has ordered a CT of the abdomen without contrast for further evaluation secondary to her history of gastritis and colon resection. 5. Anemia. This is low but stable. 6. Severe weakness. Patient's heart rate is noted to be in the 50s upon admission to the intensive care unit. She remains on telemetry. We will defer to the primary care team to monitor and follow. I would like to thank you for allowing us to follow with this patient. Data reviewed. i agree with the above assessment and plan of care. rg Dictated by TOBIN Medina for Gerardo Ma MD [facility]
[2016-10-09] MEDS ORDERED: INSULIN PEN NEEDLES ONE (20:37)
[2016-10-09] MEDS: LIPITOR PO SCH (20:39)
[2016-10-09] MEDS: ROCEPHIN 1 GM/NS 50 ML IV SCH (20:39)
[2016-10-09] MEDS: LANTUS SUBQ SCH (20:40)
[2016-10-09] MEDS ORDERED: HEPARIN IV ONE (22:52)
[2016-10-10] MEDS: PROTONIX IV SCH (06:08)
[2016-10-10] MEDS: SODIUM CHLORIDE 0.9% INJ SCH (06:08)
[2016-10-10] MEDS: REGLAN PO SCH ×3 (06:09→15:20)
[2016-10-10 06:52] LABS: BASO% 0.4 % (0.0-0.8); EOS# 0.17 X1000 (0.0-0.7); HEMATOCRIT 31.4 % (37.0-47.0); HEMOGLOBIN 10.6 g/dL (12.0-16.0); LYMPH# 1.46 X1000 (1.2-3.4); LYMPH% 25.9 % (20.5-51.1); MANUAL DIFF NEEDED? NO; MCH 30.9 PG (27-31); MCHC 33.8 g/dL (33-37); MCV 91.5 FL (81-99); MONO# 0.72 X1000 (0.11-0.59); MONO% 12.8 % (1.7-9.3); MPV 11.6 FL (7.4-10.4); NEUT% 57.9 % (42.2-75.2); PLT 138 X1000 (130-400); RBC 3.43 XMIL (4.2-5.4)
[2016-10-10] MEDS: HUMALOG SUBQ SCH ×4 (07:06→21:29)
[2016-10-10] MEDS: HEPARIN 25,000 UNIT in NS 250 ML IV SCH ×3 (07:06→20:25)
[2016-10-10 07:18] LABS: AGAP 16; ALBUMIN 3.3 g/dL (3.5-5.0); ALKALINE PHOSPHATASE 127 U/L (32-104); BUN 38 mg/dL (8-22); CALCIUM 9.1 mg/dL (8.8-10.2); CHLORIDE 93 mmol/L (98-107); COSMO 281; GOT 11 U/L (10-30); GPT 8 U/L (10-36); HDL 32 mg/dL (45-65); LDL 56 mg/dL; SODIUM 133 mmol/L (136-145); TCO2 24 mmol/L (25-35); TOTAL BILIRUBIN 0.24 mg/dL (0.20-1.00); TOTAL PROTEIN 7.1 g/dL (6.3-8.3); TRIGLYCERIDES 151 mg/dL (35-135); VLDL 30 mg/dL
[2016-10-10] MEDS: PLAVIX PO SCH (07:59)
[2016-10-10] MEDS: NEPHRO-VITE PO SCH (07:59)
[2016-10-10] MEDS: LYRICA PO SCH ×2 (07:59→20:07)
[2016-10-10] MEDS: ASPIRIN EC PO SCH (08:00)
[2016-10-10] MEDS: EFFEXOR XR PO SCH (08:00)
[2016-10-10] MEDS: COREG PO SCH ×2 (08:01→20:08)
[2016-10-10] MEDS: CATAPRES PO SCH ×2 (08:01→20:08)
[2016-10-10] MEDS: COZAAR PO SCH (08:01)
[2016-10-10] MEDS: NORVASC PO SCH (08:58)
--- NOTE | 2016-10-10 11:20 | PROGRESS NOTE ---
DATE: 10/10/2016 SUBJECTIVE: Ms. Cates did not have any episodes of chest pain last night. She has had a little bit of diarrhea but no nausea. No shortness of breath. PHYSICAL EXAMINATION: Vital Signs: She is afebrile. Heart rate more recently has been in the 70s, blood pressure 128/81. General: In no acute distress. Cardiovascular: She is in regular rate and rhythm. She has a 2/6 systolic murmur heard throughout the precordium. Extremities: She has trace lower extremity edema, and warm and well perfused lower extremities. Chest Examination: Clear bilaterally. No increased work of breathing. Abdomen: Soft and nontender. PERTINENT DATA: White count 5.6, hematocrit 31, platelet count 138,000. Sodium 133, potassium is 5, BUN is 38, creatinine 6.4. ASSESSMENT: 1. Non-ST elevation myocardial infarction. 2. End-stage renal disease. PLAN: We will proceed with cardiac catheterization in the morning. The patient is agreeable to the plan. Risks, benefits, and alternatives have been explained. We will continue her current medications which include a heparin drip, aspirin, statin, beta-severiano, and ARB. We did change her nifedipine over to amlodipine due to some relative bradycardia. This seems to have resolved.
--- NOTE | 2016-10-10 11:28 | PROGRESS NOTE ---
DATE: 10/10/2016 SUBJECTIVE: Ms. Cates is doing better. Denied any chest pain. Her lethargy and weakness are improving. More alert and awake. The patient is on heparin drip. Tolerating medication well. No unusual bleeding. CT scan done yesterday did reveal possible cystitis. The patient is scheduled to have cardiac cath tomorrow. OBJECTIVE: Vital signs: Noted. Neck: Supple. No JVD. Lungs: Bibasilar crepitations. Heart: There is a 2/6 systolic murmur at the apex. Abdomen: Soft, globular. Bowel sounds present. Mild tenderness lower abdomen. Extremities: No cyanosis, clubbing. No acute DVT. PANCAKE PROFESSIONAL: Alert, awake. Able to move all 4 limbs. PLAN: Patient lab and medication noted. We will continue current treatment. I am going to get straight cath and send UA. Transfer patient to telemetry bed. Continue current treatment. Watch her for bleeding.
--- NOTE | 2016-10-10 13:27 | ECHO REPORT ---
ORDER DATE: 10/09/2016 INDICATION FOR THE STUDY: Non ST elevation NM. FINDINGS: 1. Right atrium is mildly enlarged at 4.1 cm. 2. Mild tricuspid regurgitation. RV systolic pressure 49. 3. There does appear to be enlargement of the right ventricle with normal RV systolic function. 4. Mild pulmonic insufficiency. 5. Moderate left atrial enlargement at 5.0 cm. 6. No mitral valve prolapse. There is significant mitral annular calcification, mild mitral regurgitation. 7. Normal LV size, end-diastolic dimension of 5.1. There is left ventricular hypertrophy predominantly of the septum. Posterior wall measured 1.1 cm. Septum measures 1.4 cm. There is reduction in LV systolic function with an estimated EF of 40%. There is inferior hypokinesis noted. 8. Aortic valve is calcified consistent with moderate aortic stenosis. The peak gradient is 39, mean is 19, valve area 1.1 cm by the continuity equation. There is mild aortic insufficiency. 9. Aorta appears normal in visualized segments. 10. No pericardial effusion seen.
--- NOTE | 2016-10-10 18:49 | PROGRESS NOTE ---
DATE: 10/10/2016 SUBJECTIVE: Ms Cates states that she is feeling just a little bit better. She does remain weak. She has no complaints of chest pain or increased work of breathing at this time. OBJECTIVE: Her most recent vital signs, her temperature is 97 degrees, blood pressure 127/84, heart rate 60, respirations are 18. She is on room air. Last recorded saturation 97%. She has had 2134 in. She has had 3 L pulled on dialysis yesterday. LABS: This a.m., sodium 133, potassium 5, chloride 93, CO2 24, BUN 38, creatinine 6.4, glucose 204. Her anion gap is 16, calcium 9.1, albumin 3.3. White count 5.64, hemoglobin 10.6, hematocrit 31.4 with a platelet count of 138,000. Her CPK is down. Her troponin is elevated. Her blood cultures are negative. PHYSICAL EXAMINATION: General: This is a 51-year-old white female. She is resting quietly in bed. She is in no acute distress. Skin: Warm and dry. HEENT: Normocephalic , atraumatic. Conjunctivae pale. She has LATOYA. Mucous membranes moist. Neck: Supple. Trachea midline. No JVD. Cardiovascular: Regular rate and rhythm. Positive systolic murmur. Lungs: Continue clear to auscultation. The patient is on room air. Equal excursion. Abdomen: Large , round, soft, nontender. Positive bowel sounds. Genitourinary: Patient has minimal void with dialysis assist. Extremities: No clubbing or cyanosis. Minimal edema to lower extremities. Trace pretibial. AV fistula to the upper arm. This is dry and intact. Integumentary : No rashes or lesions noted. Neurological: She is alert and oriented x3. ASSESSMENT AND PLAN: 1. End-stage renal disease. Patient is due for her routine dialysis treatment in the a.m. Patient is also due for a left heart catheterization scheduled in the a.m. Time is not noted until the catheterization lab calls ICU. We will plan for dialysis after her left heart catheterization. 2. Electrolytes and acid-base balance. These are stable. 3. Anemia. This remains low but stable. 4. Severe weakness. This may be related to her cardiac function and heart rate being in the mid 50s to low 60s. I would like to thank you for allowing us to follow with this patient. Data reviewed, discussed with Mela Troncoso on 10/10/16. I agree with the above assessment and plan of care. rg Dictated by TOBIN Medina for Gerardo Ma MD [facility]
[2016-10-10] MEDS: ROCEPHIN 1 GM/NS 50 ML IV SCH (19:49)
[2016-10-10] MEDS: LIPITOR PO SCH (20:07)
[2016-10-10] MEDS: LANTUS SUBQ SCH (20:08)
[2016-10-11 04:55] LABS: MANUAL DIFF NEEDED? NO
[2016-10-11] MEDS: PROTONIX IV SCH (05:01)
[2016-10-11 05:21] LABS: BASO% 0.2 % (0.0-0.8); EOS# 0.25 X1000 (0.0-0.7); EOS% 4.3 % (0.0-10.0); HEMATOCRIT 30.8 % (37.0-47.0); HEMOGLOBIN 10.3 g/dL (12.0-16.0); LYMPH# 1.72 X1000 (1.2-3.4); LYMPH% 29.4 % (20.5-51.1); MCH 30.9 PG (27-31); MCHC 33.4 g/dL (33-37); MCV 92.5 FL (81-99); MONO# 0.74 X1000 (0.11-0.59); MONO% 12.6 % (1.7-9.3); MPV 11.8 FL (7.4-10.4); NEUT% 53.5 % (42.2-75.2); PLT 134 X1000 (130-400); RBC 3.33 XMIL (4.2-5.4)
[2016-10-11 05:59] LABS: ALBUMIN 3.3 g/dL (3.5-5.0); CALCIUM 9.3 mg/dL (8.8-10.2); MAGNESIUM 1.9 mg/dL (1.5-2.7); POTASSIUM 5.5 mmol/L (3.5-5.1)
[2016-10-11] MEDS: HUMALOG SUBQ SCH ×4 (06:29→21:45)
[2016-10-11] MEDS ORDERED: TIGHT: 0.2 ML/HR MISC PRN (07:08)
[2016-10-11] MEDS ORDERED: NS 2,000 ML MISC PRN (07:08)
[2016-10-11] MEDS ORDERED: HEPARIN IV PRN (07:08)
--- NOTE | 2016-10-11 07:31 | PROGRESS NOTE ---
DATE: 10/11/2016 SUBJECTIVELY: Ms. Cates is doing better. She denied any chest pain. No high-grade fever or chills. Denied any nausea or vomiting. Blood pressure is doing better. Abdominal pain is better. We tried to collect urine yesterday but we could not. OBJECTIVE: Vital signs noted.Lungs: Bilateral good air entry present. CVS: 2-3/6 systolic murmur at the apex. Abdomen: Soft, globular. Bowel sounds present. Less tender. Extremities: No cyanosis, clubbing. BUHR DRESSER: Alert, awake, able to move all 4 limbs. LAB DATA: Done today, hemoglobin 10.3, hematocrit 30.8. WBC count 5.85. Platelet count 134,000. Electrolytes: Sodium 128, potassium 5.5, BUN 45, creatinine 7.7. CONSIDERATION: Patient admitted with weakness. Does have end-stage renal disease. She ruled in for IA, hypertension diabetes mellitus and cystitis. The patient is scheduled to have a coronary angiogram today. Overall patient seems to be improving. We will continue current treatment and close observation.
[2016-10-11] MEDS ORDERED: VERSED ONE (08:37)
[2016-10-11] MEDS ORDERED: CLAVE PUMP SET NO FILTER 12260 ONE (08:38)
[2016-10-11] MEDS ORDERED: NS 1,000 ML ONE (08:38)
[2016-10-11] MEDS ORDERED: DEMEROL ONE (08:38)
[2016-10-11] MEDS ORDERED: CLAVE TWINSITE 32 IN 11959 ONE (08:38)
[2016-10-11] MEDS ORDERED: NS 250 ML ONE (08:47)
[2016-10-11] MEDS ORDERED: HEPARIN 1000 UNITS/NS 1,000 ML ONE (08:49)
--- NOTE | 2016-10-11 08:56 | PROGRESS NOTE ---
DATE: 10/11/2016 SUBJECTIVE: Ms. Cates remains lethargic. She states that she has no pain, no increased work of breathing. OBJECTIVE: Vital Signs: Her most recent vital signs, her temperature is 96.9 degrees, blood pressure 142/81, heart rate 56, respirations 12. She is on room air. Last recorded saturation 96%. She has had 1438 in. She has had 0 recorded out. Labs: Sodium 128, potassium 5.5, chloride is 89, CO2 22, BUN 45, creatinine 7.7 , glucose 172, anion gap 17, calcium 9.3, phosphorus 7.9, albumin 3.3, magnesium 1.9. White count 5.85, hemoglobin 10.3, hematocrit 30.8, with a platelet count of 134,000. Physical Examination: General: This is a 51-year-old, white female resting in bed. She is in no acute distress. Skin: Warm and dry. HEENT: Normocephalic, atraumatic. Conjunctivae pale. She is LATOYA. Mucous membranes moist. Neck: Supple. Trachea midline. No JVD. Cardiovascular: Regular rate and rhythm. She has a positive systolic murmur. No gallop. Lungs : Clear to auscultation anteriorly. Equal excursion on room air. Abdomen: Round, soft, nontender. Positive bowel sounds. Genitourinary: Minimal void with dialysis assist. Extremities: Have no clubbing, no cyanosis. No edema present. AV fistula to the upper arm. This is intact with good thrill. Integumentary: No rashes or lesions evident. Neurological: Alert and oriented x3. ASSESSMENT AND PLAN: 1. End-stage renal disease. Patient is due for her routine dialysis treatment today. We will plan to have her dialyzed after she has had her left heart catheterization. We will plan for dialysis after her left heart catheterization. We will place her on a 2 K bath. She is to dialyze for 3.5 hours. We will attempt to pull her to her dry weight. 2. Electrolytes and acid-base balance. These remain stable. She does have mild hyponatremia with correction on dialysis and mild hyperkalemia with correction on dialysis. 3. Anemia. This remains stable. 4. Bradycardia with chest pain associated with weakness. She is to have a left heart catheterization today with further evaluation per cardiology. I would like to thank you for allowing us to follow with this patient. Data reviewed, discussed with Mela Troncoso on 10/11/16. I agree with the above assessment and plan of care. rg Dictated by TOBIN Medina for Gerardo Ma MD [facility]
[2016-10-11 09:02] LABS: INR 1.18; PTT HEPARIN PROTOCOL 88.7 Seconds
[2016-10-11] MEDS: NORCO-7.5 PO PRN ×2 (10:24→21:36)
[2016-10-11] MEDS ORDERED: MAALOX PLUS LIQUID PO PRN (10:27)
--- NOTE | 2016-10-11 10:34 | CARDIAC CATH REPORT ---
DATE: 10/11/2016 PROCEDURES PERFORMED: 1. Right heart catheterization. 2. Left heart catheterization. 3. Selective coronary angiogram. 4. Left ventriculogram. 5. Opacification of right femoral artery with deployment of 6-[place]izen [place] Angio-Seal device. HISTORY OF PRESENT ILLNESS: The patient presented to the hospital with increasing dyspnea. She ruled in for myocardial infarction. She has end stage renal disease. Dr. Tolbert saw her in consultation and after discussion with the patient, the family and the admitting doctor, they all decided that heart catheterization was indicated. Benefits, risks and complications were explained to her by Dr. Tolbert to the family. They agreed and requested to proceed. DESCRIPTION OF PROCEDURE: The patient was brought to the cardiac labor relations worker in the fasting state. The right groin was prepped and draped in sterile fashion and anesthetized with lidocaine 1%. Initially a 6-[place] sheath was inserted into the right femoral artery by following the modified Seldinger technique. Left heart catheterization was performed using the standard Quique technique with left Quique and right Quique 4 catheters. Using the right Quique catheter and a straight tip guidewire, the aortic valve was negotiated. Left ventriculogram was performed in the 60 degree CUBAN projection and 30 degree WYATT projection by hand injection. A minimal gradient was noted by pullback. Then the right femoral artery was cannulated with a 6-[place] sheath. Using a [place]-Ginette catheter, a 6- [place]-Gniette catheter thermodilution with a J-tip 0.23 inch guidewire, I was able to selectively measure the pressure at the level of the right pulmonary artery. Pulmonary capillary wedge pressure was measured. Samples of blood were drawn from the pulmonary artery and from the femoral artery for determination of a Johny cardiac output. Then several cardiac outputs were obtained by the thermodilution method. Then the pressure in the pulmonary artery was remeasured, and then the [place]-Ginette catheter was pulled back from the pulmonary artery to the right ventricle and then right atrium. The pressures were determined at each level, and then the [place]-G[place] catheter was removed. The sheath was flushed. Thereafter, the right femoral artery was opacified. An Angio-Seal device was deployed, and good hemostasis was accomplished at the right femoral artery. Right femoral vein was accomplished by manual compression. The patient tolerated the procedure well without any obvious complications. SUMMARY OF HEMODYNAMIC FINDINGS: Right atrial pressure a equals 25, v equals 25, mean right atrial pressure of 23. Right ventricular pressure is 86/23. Pulmonary pressure is 84/34 with a mean of 53. Pulmonary capillary wedge pressure a equals 27, v equals 42, mean pressure 29. Central aortic pressure was 133/69. Left ventricular pressure 144/25. Post LV gram 132/26. Final central aortic pressure 127/64. Pulmonary arterial saturation is 67%. Femoral artery saturation is 97%. The cardiac output by thermodilution averages 4.6 L. The Johny cardiac output is calculated at 7.3. The index by Johny is 3.2, by thermodilution is 2.0. The latter would suggest a low cardiac output state. In summary, the hemodynamics indicate severe pulmonary hypertension, left ventricular diastolic dysfunction as well as right ventricular diastolic dysfunction. SUMMARY OF ANGIOGRAPHIC FINDINGS: 1. Left main coronary artery: This vessel arises from the left coronary sinus of Valsalva in a normal fashion. It shows mild calcification and divides into the LAD and circumflex. 2. Left anterior descending coronary artery: This vessel shows diffuse disease. Proximally it gives rise to 2 diagonal branches which are very small and appear to be subtotally occluded. They are diffusely diseased. The LAD thereafter shows diffuse disease in the order of 40% to 50% and as it approaches the apex of the left ventricle, the vessel becomes really very small in caliber, suggesting that there is a diffuse stenosis of 70% as it reaches the apex of the left ventricle. This vessel really is not suitable for bypass grafting. 3. Circumflex system: The circumflex coronary artery is nondominant. Proximally it shows a complete occlusion of a branching marginal vessel. At that point, the main circumflex also becomes essentially completely occluded. This is a 99.9% occlusion with minimal flow into the AV circumflex which appears to supply only a small area of myocardium. There is some collateral flow going into what appears to be a high lateral branch of the circumflex or a proximal diagonal branch of the LAD which is totally occluded. 4. Right coronary artery: The right coronary artery is a dominant vessel that is arising from the right coronary sinus of Valsalva in a normal fashion. This vessel shows some ostial disease of no more than 30%. The conus branch takes off of the aorta just slightly above it. Right coronary artery shows a proximal 40% stenosis, gives rise to the sinus jose branch and then gives rise to acute marginal branches. There is diffuse 40% to 50% plaque, then the right coronary artery divides into the posterior descending branch and posterolateral vessel. These vessels appear to be diffusely diseased with plaque in the order of 20% to 30% in a diffuse fashion. LEFT VENTRICULOGRAM: Left ventriculogram in the 60 degree CUBAN projection and 30 degree WYATT projection reveals enlargement of the left ventricular chamber. There is global impairment of the systolic function. Ejection fraction is probably in the order of 45%. There is questionable hypokinesis of the inferolateral aspect of the left ventricle. No mitral regurgitation was noted. OPACIFICATION OF THE RIGHT FEMORAL ARTERY: The right femoral artery appears to be normal. Angio- Seal device was deployed successfully. CONCLUSIONS: 1. Severe pulmonary hypertension. 2. Left ventricular diastolic dysfunction as well as right ventricular diastolic dysfunction. 3. Low cardiac output. 4. Mild to moderately impaired left ventricular systolic function. Ejection fraction is 45%. No mitral regurgitation. No aortic stenosis. 5. Severe coronary artery disease. There is total occlusion of the circumflex system. There is diffuse disease in the LAD and also moderate diffuse disease in the right coronary artery. 6. Successful deployment of Angio-Seal device. RECOMMENDATIONS: The patient will be treated medically at this point in time. Her pulmonary hypertension is very severe. She does not really have any good targets for intervention, and in the absence of a viability study, the target in the circumflex is probably not recommended at this point. We will discuss this with Dr. Tolbert and the other providers in her case. Thank you again for the opportunity to participate in her evaluation.
--- NOTE | 2016-10-11 10:58 | EKG Report ---
Test Performed on : 10/08/2016 3:53:07 PM Test Reason : weakness Blood Pressure : / mmHG Vent. Rate : 054 BPM Atrial Rate : 054 BPM P-R Int : 344 ms QRS Dur : 134 ms QT Int : 496 ms P-R-T Axes : 006 -60 072 degrees QTc Int : 470 ms Sinus bradycardia. with 1st degree AV block. Left axis deviation Left bundle branch block Abnormal ECG When compared with ECG of 17-SEP-2016 17:00, No significant change was found Unconfirmed Result
--- NOTE | 2016-10-11 11:00 | EKG Report ---
Test Performed on : 10/08/2016 6:23:03 PM Test Reason : repeat for 1st degree heart block Blood Pressure : / mmHG Vent. Rate : 051 BPM Atrial Rate : 267 BPM P-R Int : 000 ms QRS Dur : 116 ms QT Int : 518 ms P-R-T Axes : 000 -58 066 degrees QTc Int : 477 ms Poor data quality, interpretation may be adversely affected Junctional rhythm. Left axis deviation Inferior infarct , age undetermined Anterolateral infarct , age undetermined Abnormal ECG When compared with ECG of 08-OCT-2016 15:53, (Unconfirmed) Significant changes have occurred Unconfirmed Result
[2016-10-11] MEDS: REGLAN PO SCH ×3 (11:49→17:02)
[2016-10-11] MEDS: ASPIRIN EC PO SCH (11:51)
[2016-10-11] MEDS: PLAVIX PO SCH (11:51)
[2016-10-11] MEDS: HEPARIN 25,000 UNIT in NS 250 ML IV SCH (11:57)
[2016-10-11] MEDS: EFFEXOR XR PO SCH (12:25)
[2016-10-11] MEDS: NEPHRO-VITE PO SCH (12:25)
[2016-10-11] MEDS: COZAAR PO SCH (12:26)
[2016-10-11] MEDS: COREG PO SCH ×2 (12:26→20:59)
[2016-10-11] MEDS: NORVASC PO SCH (12:26)
[2016-10-11] MEDS: LYRICA PO SCH ×2 (12:27→20:59)
[2016-10-11] MEDS: CATAPRES PO SCH ×3 (12:27→20:58)
--- NOTE | 2016-10-11 14:14 | PROGRESS NOTE ---
DATE: 10/11/2016 SUBJECTIVE: Ms. Cates underwent her cardiac catheterization today. She is a bit sore in her right lower leg but otherwise is doing well. No chest pain. PHYSICAL EXAMINATION: Vital signs: She is afebrile. Heart rate 55, blood pressure 125/78. General: No acute distress. Cardiovascular: She is in a regular rate and rhythm. She has no murmurs. No S3. No lower extremity edema. Chest: Clear bilaterally. No increased work of breathing. Abdomen: Soft, nontender. PERTINENT DATA: White count 5.8, hematocrit 30.8, platelet count is 134,000. Sodium 128, potassium 5.5, BUN 45, creatinine 7.7. ASSESSMENT: Non ST-elevation myocardial infarction. PLAN: Cardiac catheterization was performed today demonstrating severe disease noted in the distal left anterior descending as well as severe disease in the circumflex. This appears to be providing blood flow to a limited amount to the myocardium. At this point, we will try to advanced medication. She does have notation of significant pulmonary hypertension. She is due for dialysis later on today. She did have a left ventriculogram demonstrating an EF of around 45%. We will try to wean her off the clonidine by changing her 0.1 b.i.d. and add in a nitrate. Hopefully over the next day we can wean her off the clonidine and escalate doses of amlodipine and nitrates. We could consider doing viability study in the future to see if a possible revascularization of the circumflex system would be reasonable. I will review the cardiac catheterization films.
[2016-10-11] MEDS ORDERED: HEPARIN ONE (14:34)
[2016-10-11] MEDS ORDERED: NS 2,000 ML ONE (14:34)
--- NOTE | 2016-10-11 14:38 | EKG Report ---
Test Performed on : 10/11/2016 11:19:08 AM Test Reason : NSTEMI Blood Pressure : / mmHG Vent. Rate : 056 BPM Atrial Rate : 056 BPM P-R Int : 350 ms QRS Dur : 140 ms QT Int : 512 ms P-R-T Axes : 038 -60 087 degrees QTc Int : 494 ms Sinus bradycardia. with 1st degree AV block. Left axis deviation Left bundle branch block Abnormal ECG When compared with ECG of 10-OCT-2016 05:55, (Unconfirmed) No significant change was found Confirmed by Alonso CABAN, Yoandy Feng ([id number]) on 10/13/2016 3:22:04 PM
--- NOTE | 2016-10-11 14:58 | EKG Report ---
Test Performed on : 10/10/2016 05:55:57 AM Test Reason : NSTEMI Blood Pressure : / mmHG Vent. Rate : 074 BPM Atrial Rate : 074 BPM P-R Int : 336 ms QRS Dur : 136 ms QT Int : 432 ms P-R-T Axes : 018 -59 093 degrees QTc Int : 479 ms Sinus rhythm. with 1st degree AV block. Left axis deviation Left bundle branch block Abnormal ECG When compared with ECG of 08-OCT-2016 18:23, (Unconfirmed) Sinus rhythm. has replaced Junctional rhythm. Left bundle branch block is now present Criteria for Anterior infarct are no longer present Criteria for Anterolateral infarct are no longer present Criteria for Inferior infarct are no longer present Confirmed by Alonso CABAN, Yoandy Feng ([id number]) on 10/13/2016 3:21:30 PM
[2016-10-11] MEDS: ROCEPHIN 1 GM/NS 50 ML IV SCH (20:57)
[2016-10-11] MEDS: LIPITOR PO SCH (20:59)
[2016-10-11] MEDS: LANTUS SUBQ SCH (21:45)
[2016-10-12] MEDS: NORCO-7.5 PO PRN ×2 (03:18→09:21)
[2016-10-12] MEDS: PROTONIX IV SCH (06:40)
[2016-10-12] MEDS: HUMALOG SUBQ SCH ×4 (06:41→23:15)
[2016-10-12 07:06] LABS: ALBUMIN 3.5 g/dL (3.5-5.0); CALCIUM 9.3 mg/dL (8.8-10.2); MAGNESIUM 1.8 mg/dL (1.5-2.7)
[2016-10-12] MEDS: LOVENOX SUBQ SCH ×2 (07:47→14:00)
--- NOTE | 2016-10-12 07:47 | PROGRESS NOTE ---
DATE: 10/12/2016 SUBJECTIVE: Ms. Cates is doing better. Complaining of some soreness at the groin. No fever or chills. Denied any nausea or vomiting. The patient underwent cardiac cath yesterday. Results reviewed and discussed with the patient. It Application Architect's recommendation also noted. No typical chest pain or palpitation. OBJECTIVE: Vital Signs: Her vital signs noted. Neck: Is supple. No JVD. Lungs: Bibasilar crepitations. Heart: S1 and S2 heard. Abdomen: Soft, globular. Bowel sounds present. Extremities: No cyanosis, clubbing. No acute DVT. MANAGER PEDIATRIC: Alert, awake. Able to move all 4 limbs. LAB DATA: Done yesterday noted. Dr. Tolbert's recommendation and Dr. Barton's recommendation reviewed. We will continue current treatment. Close observation. The patient is on Rocephin for possible cystitis. I am going to start her on prophylactic dose of Lovenox for DVT. Continue rest of the treatment.
[2016-10-12] MEDS: REGLAN PO SCH ×3 (07:48→15:44)
[2016-10-12] MEDS ORDERED: IMDUR PO SCH ×2 (09:00→12:54)
[2016-10-12] MEDS: CATAPRES PO SCH ×2 (09:17→23:14)
[2016-10-12] MEDS: EFFEXOR XR PO SCH (09:18)
[2016-10-12] MEDS: COREG PO SCH ×2 (09:19→23:14)
[2016-10-12] MEDS: NORVASC PO SCH (09:20)
[2016-10-12] MEDS: COZAAR PO SCH (09:22)
[2016-10-12] MEDS: LYRICA PO SCH ×2 (09:22→23:13)
[2016-10-12] MEDS: NEPHRO-VITE PO SCH (09:22)
--- NOTE | 2016-10-12 13:43 | PROGRESS NOTE ---
DATE: 10/12/2016 SUBJECTIVE: Ms. Cates has not had any chest pain. She does have some soreness in that right groin area at the site of the cardiac catheterization. PHYSICAL EXAMINATION: Vital signs: She is afebrile. Heart rate is 63, blood pressure 147/86. General: No acute distress. Cardiovascular: She is in a regular rate and rhythm. She has no murmurs, no S3. She has trace lower extremity edema. The right groin has no evidence of any significant bruit nor is there any evidence of hematoma on palpation. Chest: Clear bilaterally. No increased work of breathing. Abdomen: Soft, nontender. PERTINENT DATA: Chemistry data from today shows sodium 132, potassium 5, BUN 29, creatinine 5.8. ASSESSMENT: 1. Ischemic cardiomyopathy. 2. End-stage renal disease. PLAN: She does not appear to have any revascularize able targets. We will try to decrease her medications from the standpoint of weaning her off the clonidine after her dose this p.m. and increasing her nitrates as well as her amlodipine. We will try to increase her antianginals.
[2016-10-12] MEDS: PLAVIX PO SCH (14:00)
[2016-10-12] MEDS: ASPIRIN EC PO SCH (14:00)
--- NOTE | 2016-10-12 16:07 | PROGRESS NOTE ---
DATE: 10/12/2016 TIME SEEN: 0835. SUBJECTIVE: Ms. Cates is currently resting in bed. She has just finished her breakfast. She denies any chest pain. No increased work of breathing. States that she is feeling just slightly better. OBJECTIVE: Vital signs: Her most recent vital signs, temperature 99.3 degrees , blood pressure 135/73, heart rate 63, respirations are 18. She is on room air. Last recorded saturation 92%. She has had 432 in. She has had 3 L off from dialysis yesterday. Labs: Sodium 132, potassium 5, chloride 92, CO2 26, BUN 29, creatinine 5.8, glucose 174, anion gap is 14, calcium 9.3, phosphorus 6.4, albumin 3.5, previous hemoglobin 10.3 on the . PHYSICAL EXAMINATION: General: This is a 51-year-old white female. She is currently resting in bed. She is in no acute distress. Skin: Warm and dry. HEENT: Normocephalic , atraumatic. Conjunctivae pale. She has LATOYA. Mucous membranes moist. Neck: Supple. Trachea midline. No JVD. Cardiovascular: Regular rate and rhythm. Positive systolic murmur. No gallop. Lungs: Clear to auscultation anteriorly. Equal excursion. On room air. Abdomen: Large, round, soft, nontender. Positive bowel sounds. Genitourinary: Not inspected. Minimal void with dialysis assist. Extremities: Have no clubbing or cyanosis. No edema is present. AV fistula to the right upper arm, intact with good thrill. Integumentary: No rashes or lesions evident. Neurological: Alert and oriented x3. ASSESSMENT AND PLAN: 1. End-stage renal disease. Patient is due for her routine dialysis treatment in the a.m. She had 3 L pulled off on dialysis yesterday. She is in no acute distress. 2. Electrolytes and acid-base balance. These remain stable. 3. Anemia. This remains low but stable. 4. Chest pain associated with bradycardia. This is currently followed by cardiology. She is status post left heart catheterization. It was noted that she has an EF of 45% with the assistance with management of her medications. I would to thank you for allowing us to follow with this patient. Data reviewed, discussed with Mela Troncoso on 10/12/16. I agree with the above assessment and plan of care. rg Dictated by TOBIN Medina for Gerardo Ma MD [facility]
[2016-10-12] MEDS: LIPITOR PO SCH (23:13)
[2016-10-12] MEDS: ROCEPHIN 1 GM/NS 50 ML IV SCH (23:14)
[2016-10-12] MEDS: LANTUS SUBQ SCH (23:16)
[2016-10-13] MEDS: PROTONIX IV SCH (07:00)
[2016-10-13] MEDS: SODIUM CHLORIDE 0.9% INJ SCH (07:00)
[2016-10-13] MEDS: REGLAN PO SCH ×4 (07:00→15:39)
[2016-10-13] MEDS: HUMALOG SUBQ SCH ×4 (07:02→22:59)
[2016-10-13] MEDS: LOVENOX SUBQ SCH (07:02)
[2016-10-13] MEDS ORDERED: HEPARIN IV PRN (07:23)
[2016-10-13] MEDS ORDERED: NS 2,000 ML MISC PRN (07:23)
[2016-10-13] MEDS ORDERED: TIGHT: 0.2 ML/HR MISC PRN (07:23)
--- NOTE | 2016-10-13 07:31 | PROGRESS NOTE ---
DATE: 10/13/2016 SUBJECTIVE: Ms. Cates is doing fair. No chest pain. The patient does feel weak. I offered her short-term rehabilitation, its importance. The patient understood but she refused to go. We are adjusting her medications for blood pressure and optimized antianginal medications. Monitoring her blood pressure and blood sugar closely. No typical chest pain. Denied any nausea. PHYSICAL EXAMINATION: Vital Signs: Her vital signs reviewed. Patient is afebrile. Neck: Supple. No JVD. Lungs: Bibasilar crepitations. Heart: A 2-3/6 systolic murmur at the apex. Abdomen: Soft, globular. Bowel sounds present. Extremities: No cyanosis, clubbing. No acute DVT. GELATIN DYNAMITE PACKING OPERATOR: Alert, awake. Able to move all 4 limbs. CONSIDERATION: 1. Coronary artery disease. 2. End-stage renal disease. 3. Hypertension. 4. Diabetes mellitus. 5. Morbid obesity. LAB DATA: Noted her cholesterol was 118, LDL was 56. PLAN: Overall plan discussed at length with the patient. She is in agreement. Fall precautions. I am going to discuss the plan with group work program director. If clinical condition permits, we will plan discharging patient home soon. Discussed at length risk factor modification.
[2016-10-13] MEDS ORDERED: ASPIRIN EC PO SCH (09:00)
[2016-10-13 09:33] LABS: HEMOGLOBIN A1C 8.2 % (4.8-6.0)
[2016-10-13 10:05] LABS: ALBUMIN 3.4 g/dL (3.5-5.0); CALCIUM 9.3 mg/dL (8.8-10.2); MAGNESIUM 1.9 mg/dL (1.5-2.7); POTASSIUM 5.5 mmol/L (3.5-5.1); TOTAL BILIRUBIN 0.3 mg/dL (0.20-1.00); TOTAL PROTEIN 7.4 g/dL (6.3-8.3)
[2016-10-13] MEDS: EFFEXOR XR PO SCH (11:40)
[2016-10-13] MEDS: COZAAR PO SCH (11:40)
[2016-10-13] MEDS: NEPHRO-VITE PO SCH (11:41)
[2016-10-13] MEDS: ASPIRIN EC PO SCH (11:41)
[2016-10-13] MEDS: NORVASC PO SCH (11:41)
[2016-10-13] MEDS: COREG PO SCH ×2 (11:41→22:54)
[2016-10-13] MEDS: PLAVIX PO SCH (11:41)
[2016-10-13] MEDS: LYRICA PO SCH ×2 (11:51→22:54)
--- NOTE | 2016-10-13 14:45 | PROGRESS NOTE ---
DATE: 10/13/2016 TIME SEEN: 0805. SUBJECTIVE: Ms. Cates is currently resting in bed. She has very minimal complaint. She is lethargic. Otherwise no increased work of breathing or shortness of breath. VITAL SIGNS: Temperature 98.4 degrees, blood pressure 150/86, heart rate 60, respirations 20. She is on room air. Last recorded saturation 97%. She has had 990 in. She has had 0 out with need for dialysis. LABS: Her most recent labs, sodium 129, potassium 5.5, chloride 89, CO2 23, BUN 39, creatinine 6.7, glucose 114. Her anion gap is 17. Her calcium is 9.3, magnesium 1.9, albumin 3.4. She has a B12 of 367. Her previous hemoglobin was 10.3 on the . PHYSICAL EXAMINATION: General: This is a 51-year-old white female. She is currently resting in bed. She is in no acute distress. Skin: Warm and dry. HEENT: Normocephalic , atraumatic. Conjunctivae pale. She has LATOYA. Mucous membranes moist. Neck: Supple. Trachea midline. No JVD. Cardiovascular: Regular rate and rhythm. Positive systolic murmur. No gallop appreciated. Lungs: Clear to auscultation anteriorly. Equal excursion on room air. Abdomen : Large, round, soft, nontender. Positive bowel sounds. Genitourinary: Not inspected. Patient has minimal void with dialysis assist. Extremities: She has no edema. No clubbing or cyanosis. Fistula is noted to the left upper arm. This is dry and intact with palpable thrill. Integumentary: No rashes or lesions evident. Neurological: Alert and oriented x3. ASSESSMENT AND PLAN: 1. End-stage renal disease. Patient is due for her routine dialysis today. We will place her on a 2 K bath. She is to dialyze for 3.5 hours. We will attempt to pull patient to her dry weight. 2. Electrolytes and acid-base balance. She has mild hyponatremia. Again, with correction on dialysis. 3. Anemia. This remains low but stable. 4. Chest pain. This is currently followed by cardiology and her primary care team. She has no complaints today. I would like to thank you for allowing us to follow with this patient. Seen, data reviewed, discussed with Mela Troncoso on 10/13/16. I agree with the above assessment and plan of care. rg Dictated by TOBIN Medina for Gerardo Ma MD [facility]
--- NOTE | 2016-10-13 16:30 | PROGRESS NOTE ---
DATE: 10/13/2016 SUBJECTIVE: Ms Cates continues to have trouble with fatigue. She is awaiting her dialysis today. OBJECTIVE: Vital signs: On physical examination afebrile, heart rate is 68, blood pressure 154/83. The last 3 checks she has have had systolics in the upper 140s to 150s and diastolics in the 80s to 90s. General: She is in no acute distress. Cardiovascular: She sounds to be in a regular rate and rhythm. She has trace lower extremity edema with warm and well perfused lower extremities. No murmurs. Chest Exam: Clear bilaterally. She has no increased work of breathing. Abdomen: Soft and nontender. PERTINENT DATA: Her sodium is 129, potassium 5.5, BUN is 39 and creatinine 6.7. ASSESSMENT: 1. Severe coronary disease. 2. Hypertension. 3. End-stage renal disease. PLAN: We will continue to titrate medications. I will add back in clonidine at 0.1 b.i.d. In addition I will increase her Imdur to 120. Will try to work on increasing her antianginals as much as we can. She has severe coronary disease with no real good targets for revascularization. Medical therapy is recommended at this time. From our standpoint, she is safe for discharge. She may follow up with cardiology within the next month.
[2016-10-13] MEDS ORDERED: HEPARIN ONE (18:40)
[2016-10-13] MEDS ORDERED: NS 1,000 ML ONE (18:40)
[2016-10-13] MEDS: CATAPRES PO SCH (22:54)
[2016-10-13] MEDS: LIPITOR PO SCH (22:54)
[2016-10-13] MEDS: ROCEPHIN 1 GM/NS 50 ML IV SCH (22:54)
[2016-10-13] MEDS: LANTUS SUBQ SCH (22:59)
[2016-10-14] MEDS: NORCO-7.5 PO PRN (05:05)
[2016-10-14] MEDS: LOVENOX SUBQ SCH (05:56)
[2016-10-14] MEDS: REGLAN PO SCH ×2 (05:56→06:27)
[2016-10-14] MEDS: PROTONIX IV SCH (05:57)
[2016-10-14] MEDS: SODIUM CHLORIDE 0.9% INJ SCH (05:57)
[2016-10-14 06:26] LABS: BASO% 0.2 % (0.0-0.8); EOS# 0.18 X1000 (0.0-0.7); EOS% 3.1 % (0.0-10.0); HEMATOCRIT 30.8 % (37.0-47.0); IMM GRAN# 0.03 X1000 (0.0-0.04); IMM GRAN% 0.5 % (0.0-0.5); LYMPH# 1.21 X1000 (1.2-3.4); LYMPH% 21.1 % (20.5-51.1); MANUAL DIFF NEEDED? NO; MCH 29.9 PG (27-31); MCHC 32.5 g/dL (33-37); MCV 91.9 FL (81-99); MONO# 0.85 X1000 (0.11-0.59); MONO% 14.8 % (1.7-9.3); MPV 11.2 FL (7.4-10.4); NEUT% 60.3 % (42.2-75.2); PLT 107 X1000 (130-400); RBC 3.35 XMIL (4.2-5.4)
[2016-10-14] MEDS: HUMALOG SUBQ SCH (06:27)
--- NOTE | 2016-10-14 07:51 | DISCHARGE SUMMARY ---
ADMISSION DATE: 10/08/2016 DISCHARGE DATE: 10/14/2016 FINAL DISCHARGE DIAGNOSES: 1. [id number] myocardial infarction. 2. Uncontrolled diabetes mellitus. 3. End-stage renal disease, on hemodialysis. 4. Hypertension. 5. Hyperlipidemia. 6. Diabetic peripheral neuropathy. 7. Significant atherosclerotic cardiovascular disease which is generalized. 8. Unsteady gait. 9. Situational depression. 10. Gastritis and reflux disease. HISTORY AND HOSPITAL COURSE: Ms. Cates is a 51-year-old white female patient with multiple medical problems, admitted with weakness, lethargy, low blood pressure. Her cardiac isoenzymes were elevated. The patient also had some tenderness in the lower abdomen. History part was limited. We entertained the possibility of [id number] [place] and infection. Initially we admitted the patient to ICU. CT scan of the abdomen did reveal cystitis. Patient was started on antibiotics. We tried to collect urine but we could not. Cardiology consult obtained. Dr. Tolbert evaluated the patient. The patient underwent cardiac cath which did reveal significant coronary artery disease and pulmonary hypertension. The patient was not a candidate for revascularization. We decided to treat patient medically. The patient is doing fair. The patient is weak. I offered her short-term rehab. The patient understood the importance but refused. I also offered her home health. The patient refused. Overall patient is doing better. PHYSICAL EXAMINATION: Vital signs: Noted. Neck: Supple. No JVD. Lungs: Bilateral good air entry present. CVS: There is a 2 to 3/6 systolic murmur at the apex. Abdomen: Soft, globular. Bowel sounds present. Extremities: No cyanosis, clubbing. No acute DVT. POULTRY FARM WORKER: Alert, awake. Able to move all 4 limbs. LABORATORY DATA: Revealed sodium 129, potassium 5.5, BUN was 39, creatinine 6.7. The patient received dialysis. Hemoglobin A1c was 8.2. Lipid panel results reviewed. Her hemoglobin done today was 10, hematocrit 30.8, WBC count 5.73, platelet count was 107,000. PT/INR was 1.18. Her cardiac cath revealed severe pulmonary hypertension. Left and right ventricular diastolic dysfunction. Low cardiac output. Mild to moderately impaired left ventricular systolic function. Ejection fraction was 45%. No mitral or aortic stenosis. Severe coronary artery disease. There is total occlusion of the circumflex system. There is diffuse disease in the LAD and also moderate diffuse disease in the right coronary artery. I did discuss this result and overall poor prognosis with the patient and also with her and they are in agreement. Her CT scan of the abdomen and pelvis did reveal mild questionable cystitis. Otherwise no acute process identified. Patient received maximum benefit of hospitalization. I am planning to discharge patient home. Advised her to monitor blood pressure, Accu-Chek, fall precaution. Continue dialysis. Follow up with me in a week. Follow up with Dr. Tolbert in 1 month. In case of more distress, call us back or go to the emergency room.
[2016-10-14 07:54] VITALS: BP 156/85
[2016-10-14] MEDS: COREG PO SCH (08:53)
[2016-10-14] MEDS: COZAAR PO SCH (08:53)
[2016-10-14] MEDS: EFFEXOR XR PO SCH (08:53)
[2016-10-14] MEDS: LYRICA PO SCH (08:53)
[2016-10-14] MEDS: PLAVIX PO SCH (08:53)
[2016-10-14] MEDS: NORVASC PO SCH (08:53)
[2016-10-14] MEDS: ASPIRIN EC PO SCH (08:53)
[2016-10-14] MEDS: CATAPRES PO SCH (08:54)
[2016-10-14] MEDS ORDERED: IMDUR PO SCH (09:00)
--- NOTE | 2016-10-14 16:38 | PROGRESS NOTE ---
DATE: 10/14/2016 TIME SEEN: 0746. SUBJECTIVE: Ms. Cates is resting quietly in bed. She states that she did not sleep well last night. She states that she is feeling better and would like to go home. She denies chest pain or increased work of breathing. OBJECTIVE: Vital signs: Her most recent vital signs, her temperature is 98.4 degrees, blood pressure 156/85, heart rate 63, respirations 16. She is on room air. Last recorded saturation is 98%. She has had 880 in. She has had 3.5 L pulled on dialysis yesterday. Labs: She has labs pending this a.m. with a hemoglobin of 10 and hematocrit of 30.8 from this a.m. PHYSICAL EXAMINATION: General: This is a 51-year-old white female. She is currently resting in bed. She is in no acute distress. Skin: Warm and dry. HEENT: Normocephalic , atraumatic. Conjunctiva is pink. She has LATOYA. Mucous membranes moist. Neck: Supple. Trachea midline. No JVD. Cardiovascular: Regular rate and rhythm. Positive systolic murmur. No gallop. Lungs: Clear to auscultation anteriorly. Equal excursion. On room air. Abdomen: Large, round, soft, nontender. Positive bowel sounds. Genitourinary: Not inspected. Minimal void with dialysis assist. Extremities: Have no edema. No clubbing or cyanosis. Fistula remains intact to the left upper arm. Palpable thrill noted. Integumentary: No rashes or lesions noted. Neurological: Alert and oriented x3. ASSESSMENT AND PLAN: 1. End-stage renal disease. Patient is due for her routine dialysis in the a.m. She has been instructed if she is discharged to go to her outpatient prescription as noted. 2. Electrolytes, acid-base balance. Patient has had mild hyponatremia secondary to #1, always with correction on dialysis at this point. 3. Anemia. This is stable. 4. Chest pain. This has resolved. I would like to thank you for allowing us to follow with this patient. Seen, data reviewed, discussed with Mela Troncoso on 10/14/16. I agree with the abive assessment and plan of care. rg Dictated by TOBIN Medina for Gerardo Ma MD [facility]
== END 2016-10-14 09:43 | disposition home or self-care (01) | DRG 280 ==
LOC: ED 15:08 → ICU 20:21 → 4N 10-12 02:04 → UNDODISIN 10-12 15:35
PROVIDERS: ADMIT Internal Medicine; ATTEND Internal Medicine
PROC: 5A1D60Z (ICD-10-PCS; 2016-10-09)
PROC: 4A023N8 Measurement of Cardiac Sampling and Pressure, Bilateral, Percutaneous Approach (ICD-10-PCS; principal; 2016-10-11)
PROC: B2111ZZ Fluoroscopy of Multiple Coronary Arteries using Low Osmolar Contrast (ICD-10-PCS; 2016-10-11)
PROC: B2151ZZ Fluoroscopy of Left Heart using Low Osmolar Contrast (ICD-10-PCS; 2016-10-11)
PROC: B3101ZZ Fluoroscopy of Thoracic Aorta using Low Osmolar Contrast (ICD-10-PCS; 2016-10-11)
PROC: 02HQ32Z Insertion of Monitoring Device into Right Pulmonary Artery, Percutaneous Approach (ICD-10-PCS; 2016-10-11)
PROC: 4A133B3 Monitoring of Arterial Pressure, Pulmonary, Percutaneous Approach (ICD-10-PCS; 2016-10-11)
PROC: 4A1239Z Monitoring of Cardiac Output, Percutaneous Approach (ICD-10-PCS; 2016-10-11)
DX: I21.4 Non-ST elevation (NSTEMI) myocardial infarction (principal); N18.6 End stage renal disease; I12.0 Hypertensive chronic kidney disease with stage 5 chronic kidney disease or end stage renal disease; I50.42 Chronic combined systolic (congestive) and diastolic (congestive) heart failure; I95.9 Hypotension, unspecified; I27.2 Other secondary pulmonary hypertension; E87.1 Hypo-osmolality and hyponatremia; Z68.41 Body mass index [BMI] 40.0-44.9, adult; E11.22 Type 2 diabetes mellitus with diabetic chronic kidney disease; E11.42 Type 2 diabetes mellitus with diabetic polyneuropathy; E11.65 Type 2 diabetes mellitus with hyperglycemia; E87.5 Hyperkalemia; E66.01 Morbid (severe) obesity due to excess calories; Z99.2 Dependence on renal dialysis; I25.10 Atherosclerotic heart disease of native coronary artery without angina pectoris; I25.5 Ischemic cardiomyopathy; K31.84 Gastroparesis; R00.1 Bradycardia, unspecified; E11.43 Type 2 diabetes mellitus with diabetic autonomic (poly)neuropathy; E78.5 Hyperlipidemia, unspecified; K21.9 Gastro-esophageal reflux disease without esophagitis; K29.70 Gastritis, unspecified, without bleeding; I44.0 Atrioventricular block, first degree; I44.7 Left bundle-branch block, unspecified; M19.90 Unspecified osteoarthritis, unspecified site; R26.81 Unsteadiness on feet; F43.21 Adjustment disorder with depressed mood; Z79.899 Other long term (current) drug therapy; Z79.4 Long term (current) use of insulin; Z79.02 Long term (current) use of antithrombotics/antiplatelets; Z79.82 Long term (current) use of aspirin; Z86.73 Personal history of transient ischemic attack (TIA), and cerebral infarction without residual deficits; Z90.49 Acquired absence of other specified parts of digestive tract; Z82.49 Family history of ischemic heart disease and other diseases of the circulatory system; Z83.3 Family history of diabetes mellitus
CPT/HCPCS: 71020; 74176; 80048; 80053; 80061; 80069; 82009; 82550; 82607; 82805; 82948; 83036; 83525; 83605; 83735; 84484; 85025; 85610; 85730; 87040; 93005; 93010; 93306; 93460; C9113; J0696; J1644; J1650; J1815; J2175; J2250; J7030; J7050; Q9967; S0164

== ENCOUNTER 2017-01-23 16:35 | Inpatient (IN) ==
[2017-01-23] MEDS ORDERED: ZOSYN 3.375 GM/NS 3.375 GM/50 ML IVPB IV ONE (16:55)
[2017-01-23] MEDS ORDERED: VANCOMYCIN 1 GM/NS 1 GM/250 ML IVPB IV ONE (16:55)
--- NOTE | 2017-01-23 17:23 | PROVIDER DOCUMENTATION ---
This chart was entered by Lia Aviles Scribe, acting as scribe for Bashir Boo MD. HPI-Rash/Wound/ReCheck - General Chief Complaint: Insect Bite/Sting Stated Complaint: POSS INSECT BITE Time Seen by Provider: 01/23/17 16:53 Source: patient Allergies/Adverse Reactions: Allergies Allergy/AdvReac Type Severity Reaction Status Date / Time rizatriptan benzoate * Allergy Mild SHORTNESS Verified 12/06/16 13:10 [From Maxalt] OF BREATH ciprofloxacin HCl * Allergy Unknown Unknown Verified 12/06/16 13:10 [From Cipro] Sulfa (Sulfonamide Allergy Unknown Unknown Verified 12/06/16 13:10 Antibiotics) ondansetron HCl * AdvReac Mild HEADACHE Verified 12/06/16 13:10 [From Zofran] Home Medications: Home Medication List Medication Instructions Recorded Confirmed Last Taken Type Trazodone [Desyrel] 50 mg PO QHS 09/30/13 11/26/16 12/05/16 20:00 History Carvedilol [Coreg] 25 mg PO BID #60 tablet 09/25/15 11/26/16 12/06/16 08:00 Rx Pregabalin [Lyrica] 300 mg PO BID 10/02/15 11/26/16 12/06/16 08:00 History Insulin Lispro [Humalog] See Protocol SQ DIRECTED #0 01/26/16 11/26/16 08:00 Rx cartridge Aspirin [Aspirin EC] 81 mg PO DAILY 04/08/16 11/26/16 12/06/16 08:00 History Cinnamon Bark [Cinnamon] 500 mg PO BID 04/08/16 11/26/16 12/06/16 08:00 History Clopidogrel Bisulfate [Plavix] 75 mg PO DAILY 04/08/16 11/26/16 12/06/16 08:00 History Folic Acid/Vitamin B Comp W-C 0.8 mg PO DAILY 04/08/16 11/26/16 12/06/16 08:00 History [Folic Acid Xtra Caplet] Quetiapine Fumarate [Seroquel] 100 mg PO HS 04/08/16 11/26/16 12/05/16 21:00 History ATORVAstatin [Lipitor] 10 mg PO QHS 09/17/16 11/26/16 12/05/16 20:00 History Amlodipine [Norvasc] 10 mg PO DAILY #0 tablet 10/14/16 11/26/16 12/06/16 08:00 Rx Clonidine [Catapres] 0.1 mg PO BID #60 tablet 10/14/16 11/26/16 12/06/16 08:00 Rx Famotidine [Pepcid] 20 mg PO DAILY #60 tablet 10/14/16 11/26/16 12/06/16 08:00 Rx Insulin Glargine [Lantus] 15 unit SUBQ QHS #0 10/14/16 11/26/16 12/05/16 08:00 Rx Isosorbide Mononitrate E.r. [Imdur] 120 mg PO DAILY #0 tablet 10/14/16 11/26/16 12/06/16 08:00 Rx Fluticasone Propionate [Flonase 9.9 ml NS DAILY #1 spray.susp 12/06/16 Unknown Rx Allergy Relief] Loratadine [Claritin] 10 mg PO DAILY PRN PRN #90 capsule 12/06/16 Unknown Rx Promethazine [Phenergan] 25 mg PO Q6H PRN PRN #20 tablet 12/06/16 Unknown Rx Clindamycin [Cleocin] 300 mg PO Q6HR #21 capsule 01/23/17 Unknown Rx Sulfamethoxazole/Trimethoprim 1 each PO BID #20 tablet 01/23/17 Unknown Rx [Bactrim Ds Tablet] - History of Present Illness-Dermatology Nature of Presenting Problem: 51 yo F presents to the ER with complaint of open wound to L thumb. Pt states she thinks she got bit by a spider Tuesday night or Tuesday morning, did not see the spider, pt was reaching in to her sewing bag and felt a sharp pain to her L thumb. States it started out as a red dot and has progressively gotten worse. Location: reports: upper extremity (L thumb) Onset/Duration: reports: 24 hours ago Context/Associated Symptoms: reports: unknown bite/sting Review of Systems - Adult - REVIEW OF SYSTEMS - ADULT Constitutional: denies: chills, fever Eyes: reports: no symptoms reported Ears, Nose, Mouth & Throat: reports: no symptoms reported Cardiovascular: denies: chest pain, palpitations Respiratory: denies: cough, shortness of breath Gastrointestinal: reports: no symptoms reported Genitourinary: reports: no symptoms reported Musculoskeletal: reports: no symptoms reported Integumentary: reports: see HPI, skin sores/ulcer Neurological: reports: no symptoms reported Psychiatric: reports: no symptoms reported Endocrine: reports: no symptoms reported Hematologic/Lymphatic: reports: no symptoms reported Allergic/Immunologic: reports: no symptoms reported All Other Systems: Reviewed and Negative Past History - Adult - PAST MEDICAL HISTORY-ADULT Review of Records: reports: Nursing Assessment Review, Medications Reviewed Cardiovascular: reports: CHF, HTN, murmur Respiratory: reports: asthma, COPD Gastrointestinal: reports: GERD Genitourinary: reports: dialysis (TTS), ESRD Musculoskeletal: reports: arthritis Neurological: reports: speech difficulty Psychiatric: reports: depression Endocrine/Immune: reports: Diabetes - PRIOR SURGERIES/PROCEDURES Surgical/Procedure History: reports: appendectomy, cholecystectomy, hysterectomy , indwelling device (AV fist left arm), orthopedic (extremity) - PRIOR HOSPITALIZATIONS Prior Hospitalizations: reports: none - IMMUNIZATION STATUS Childhood Immunizations: See Nurse Assessment Flu Vaccine: See Nurse Assessment Physical Exam-General - PHYSICAL EXAM-ADULT Initial Vital Signs Reviewed: Yes - CONSTITUTIONAL General Appearance: alert, no apparent distress - EYES Eyes: PERRL/EOMI, pink conjunctivae - HEAD, EARS, NOSE, MOUTH & THROAT HENMT: normocephalic/atraumatic, normal ENT inspection - NECK Neck: supple, normal inspection - RESPIRATORY Respiratory: no respiratory distress, no accessory muscle use - CARDIOVASCULAR Cardiovascular: normal peripheral pulses, regular rate, rhythm - MUSCULOSKELETAL Back Exam: no CVA tenderness, no vertebral tenderness Extremity: normal range of motion, normal gait - SKIN Integumentary: ecchymosis, erythema, tenderness, other (L thumb erythema, exoriated, fungated, ecchymotic lesion from the distal to proximal phalynx) - NEUROLOGIC Neurologic: grossly normal, no motor/sensory deficits - PSYCHIATRIC Psych/Mental Status: normal mood/affect, normal thought content, normal thought process, oriented x 3 Progress - PLAN OF CARE/RESULTS Progress/Plan/Lab Results: Vital Signs - 8 hr 01/23/17 16:38 Temperature 98.0 F Pulse Rate 66 Respiratory Rate 20 Blood Pressure 133/81 O2 Sat by Pulse Oximetry 99 Orders Category Date Time Status CBC WITH DIFF [HEME] Stat Lab 06/25/17 16:54 Uncollected CMP [COMPREHENSIVE METABOLIC PANEL] [CHEM] Stat Lab 01/23/17 16:54 Uncollected Piperacil/Tazobact 3.375 gm/Ns [Zosyn 3.375 gm/Ns] Med 01/23/17 16:55 Active 3.375 gm in 50 ml IV NOW Vancomycin 1 gm/Ns Med 01/23/17 16:55 Active 1 gm in 250 ml IV NOW Departure - Departure Date of Disposition Decision: 01/23/17 Time of Disposition Decision: 17:22 DIAGNOSIS: Cellulitis of thumb, left Disposition: HOME 01 Certified Medical Emergency: Emergent Condition: Stable Prescriptions: Sulfamethoxazole/Trimethoprim [Bactrim Ds Tablet] 1 each PO BID #20 tablet Clindamycin [Cleocin] 300 mg PO Q6HR #21 capsule Referrals and Follow-Ups: Yared Elizondo MD [Primary Care Provider] - - Critical Care Note This patient required my direct & personal management of CC.: No Attestation - Physician/ JORDAN Attestation The physician spent face to face time with patient:: Yes Advanced Practice Provider documentation review:: The physician spent face to face time with this patient and agrees with all MLP documentation, treatment, and medical decision making by the MLP. See provider notes for further information. This chart was documented by the indicated scribe, (Lia Aviles Scribe) and accurately reflects the services I performed and decisions made by me, Bashir Boo MD, as attested by the provider's signature.
[2017-01-23 17:35] LABS: BASO% 0.1 % (0.0-0.8); EOS# 0.15 X1000 (0.0-0.7); EOS% 1.8 % (0.0-10.0); HEMATOCRIT 33.6 % (37.0-47.0); HEMOGLOBIN 11.3 g/dL (12.0-16.0); LYMPH# 1.32 X1000 (1.2-3.4); LYMPH% 16.2 % (20.5-51.1); MANUAL DIFF NEEDED? NO; MCH 30.2 PG (27-31); MCHC 33.6 g/dL (33-37); MCV 89.8 FL (81-99); MONO% 12.2 % (1.7-9.3); MPV 12.6 FL (7.4-10.4); NEUT% 69.7 % (42.2-75.2); PLT 115 X1000 (130-400); RBC 3.74 XMIL (4.2-5.4)
[2017-01-23 17:57] LABS: ALBUMIN 3.7 g/dL (3.5-5.0); CALCIUM 9.5 mg/dL (8.8-10.2); POTASSIUM 5.9 mmol/L (3.5-5.1); TOTAL BILIRUBIN 0.36 mg/dL (0.20-1.00); TOTAL PROTEIN 8.4 g/dL (6.3-8.3)
[2017-01-23] MEDS ORDERED: CLARITIN PO PRN (18:11)
[2017-01-23] MEDS ORDERED: HUMALOG SUBQ ONE (18:11)
[2017-01-23] MEDS ORDERED: INSULIN LISPRO 10 UNIT SQ SCH (18:15)
[2017-01-23] MEDS ORDERED: KAYEXALATE PO ONE (18:15)
--- NOTE | 2017-01-23 19:16 | Diag Imaging Result Doc PS360 ---
CHEST-PORTABLE - 01/23/2017 INDICATION: sob TECHNIQUE: COMPARISON: 01/11/2017 FINDINGS: Stable cardiomegaly. Central pulmonary vessels are slightly distended similar to prior. No infiltrates or overt edema. No pneumothorax or large effusion. IMPRESSION: Stable cardiomegaly and perhaps mild pulmonary vascular congestion. Electronically signed by Patrice Mcmahon 01/23/2017 7:13 PM
[2017-01-23 19:49] LABS: INR 1.13; PTT 34.4 Seconds (22.0-36.0)
--- NOTE | 2017-01-23 20:03 | Diag Imaging Result Doc PS360 ---
FINGER(S)-LEFT - 01/23/2017 INDICATION: thumb, left. Thumb pain. TECHNIQUE: Three views COMPARISON: 11/29/2011 FINDINGS: Bones are intact and normally aligned. Joint spaces are preserved. Stable surgical clip at the radial side of the wrist. Stable advanced peripheral vascular disease of the fingers. IMPRESSION: No acute disease or change from prior Electronically signed by Patrice Mcmahon 01/23/2017 8:01 PM
[2017-01-23] MEDS: NORCO-5 PO PRN (20:09)
[2017-01-23] MEDS ORDERED: LANTUS SUBQ SCH (21:00)
[2017-01-23] MEDS: PEPCID PO SCH (22:52)
[2017-01-23] MEDS: SEROQUEL PO SCH (22:52)
[2017-01-23] MEDS: DESYREL PO SCH (22:52)
[2017-01-23] MEDS: CATAPRES PO SCH (22:52)
[2017-01-23] MEDS: LYRICA PO SCH (22:52)
[2017-01-23] MEDS: COREG PO SCH (22:53)
[2017-01-23] MEDS: LIPITOR PO SCH (22:53)
[2017-01-23] MEDS: ZOSYN 2.25 GM/NS 2.25 GM/50 ML IVPB IV SCH (22:53)
[2017-01-23] MEDS: HUMALOG SUBQ SCH (22:54)
[2017-01-23] MEDS: PATIENT'S OWN MED PO SCH (22:58)
[2017-01-24] MEDS: HUMALOG SUBQ SCH ×5 (00:12→21:31)
[2017-01-24] MEDS: ZOSYN 2.25 GM/NS 2.25 GM/50 ML IVPB IV SCH ×3 (04:00→21:27)
[2017-01-24] MEDS: NORCO-5 PO PRN ×3 (04:08→22:18)
--- NOTE | 2017-01-24 05:34 | HISTORY AND PHYSICAL ---
CHIEF COMPLAINT: Infected left thumb. HISTORY OF PRESENT ILLNESS: Ms. Cates is a 51-year-old white female patient with multiple medical problems, in the form of uncontrolled diabetes mellitus, atherosclerotic cardiovascular, cerebrovascular, and peripheral vascular disease, hypertension, hyperlipidemia, diabetes mellitus, end-stage renal disease. The patient claims she noticed redness, pain on the left thumb. Patient is concerned about spider bite. At times, pain is throbbing in nature. The patient lost some skin. The patient went to urgent care, and urgent care doctor immediately sent her to the emergency room. The patient did have chills, low-grade fever. In the ER, the patient received IV vancomycin and Zosyn. I evaluated the patient. Her left thumb looked infected. Had redness, tenderness, with her uncontrolled diabetes and vascular disease. I decided to admit the patient for further care. The patient also had some chills. We did a septic workup. The patient missed her dialysis on Tuesday. The patient claims she had diarrhea, and she could not go. The patient denied any typical chest pain, palpitations, orthopnea, or PND. She does have a headache. No nausea or vomiting. Mild cough. No expectoration or hemoptysis. No abdominal pain. No blood or mucus in the stool. The patient is not making much urine. No heat or cold intolerance. Her blood sugar does fluctuate. No major hypoglycemic episode. No further history available at this time. ALLERGIES: Cipro and Relpax. CURRENT MEDICATIONS: The patient is on Lantus, Norvasc, Lipitor, Coreg, cinnamon, clonidine, Plavix, Cymbalta, Pepcid, multivitamin, Imdur, Claritin, Lyrica, Seroquel, and trazodone. PAST MEDICAL HISTORY: Insulin-dependent diabetes mellitus, poorly-controlled due to noncompliance. Hypertension, hyperlipidemia, coronary artery disease, end-stage renal disease, migraine headache, anemia, morbid obesity, osteoarthritis. History suggestive of TIA. The patient had a colon resection done. Coronary artery disease, gastritis, and reflux disease. End- stage renal disease, on hemodialysis, poorly compliant to dialysis. PERSONAL HISTORY: . Lives with . Nonsmoker. Denied alcohol or substance abuse. Needs minimal assistance in activities of daily living. REVIEW OF SYSTEMS: As per HPI. No major depression. Patient does have situational depression. No heat or cold intolerance. The patient does have significant neuropathy. History of migraine headache. The patient had a hysterectomy. FAMILY HISTORY: Significant for mother with osteoporosis, COPD hypertension. Strong family history of diabetes, hyperlipidemia, hypertension. PHYSICAL EXAMINATION: GENERAL: Middle-aged white female patient, in mild distress. The rest is from the chart. VITAL SIGNS: Blood pressure 133/81, pulse 66, respirations 20, temperature 98 degrees. SKIN: Normal turgor. No rash or petechiae. HEENT: Head atraumatic, normocephalic. Trainer conjunctivae. Anicteric sclerae. Extraocular muscle movement normal. Fundus cannot be penetrated. Good oral hygiene. No tonsillopharyngeal congestion or exudate. Ears and nose benign. NECK: Supple. No JVD, thyromegaly, or lymphadenopathy. CHEST: Bibasilar crepitation. No rales. CARDIOVASCULAR: S1 and S2 heard, 2/6 systolic murmur at the aortic area. No gallop or thrill. ABDOMEN: Soft, globular. Bowel sounds present. No organomegaly or mass. EXTREMITIES: No cyanosis, clubbing. No acute DVT. Patient's left thumb looks very infected. Some exfoliation of the skin, tenderness. Movement of interphalangeal joint painful. CENTRAL NERVOUS SYSTEM: Alert, awake, answering questions fairly well. LABORATORY DATA: Done today, revealed WBC count 8.17, hemoglobin 11.3, hematocrit 33.6, platelet count 115. Sodium 124, potassium 5.9, chloride 82, BUN 71, creatinine 8.9, blood sugar 372. CONSIDERATION: 1. Infected left thumb, in a patient with uncontrolled diabetes and significant vasculopathy. I am going to admit the patient for IV antibiotics. We will do septic workup. 2. Her other problems include uncontrolled diabetes mellitus, end-stage renal disease, noncompliant to dialysis. 3. Hyperkalemia. I am going to give her Kayexalate. 4. Hypertension, hyperlipidemia, headache. We are going to get wound care nurse evaluation. Continue home medicine, proper control of diabetes. 5. Nephrology consult for dialysis. Again, emphasized importance of regular dialysis. The patient understood. cc: Yared Elizondo MD
[2017-01-24] MEDS ORDERED: HEPARIN IV PRN (06:40)
[2017-01-24] MEDS ORDERED: NS 2,000 ML MISC PRN (06:40)
[2017-01-24] MEDS ORDERED: TIGHT: 0.2 ML/HR MISC PRN (06:40)
[2017-01-24] MEDS ORDERED: LANTUS SUBQ SCH (06:42)
[2017-01-24] MEDS ORDERED: HUMALOG SUBQ SCH (06:46)
--- NOTE | 2017-01-24 07:34 | PROGRESS NOTE ---
DATE: 01/24/2017 SUBJECTIVE: Ms. Cates is doing fair. Still complaining of pain in the left thumb. No high-grade fever or chills. No nausea or vomiting. The patient this morning was a little weak and groggy. 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 I am going to decrease her Lantus to 20 units. We will give her some orange juice. The patient is due for dialysis today. No nausea or vomiting. PHYSICAL EXAMINATION: Vital Signs: Her vital signs noted. Neck: Supple. No JVD. Lungs: Bibasilar crepitations. Heart: A 2-3/6 systolic murmur at the apex. Abdomen: Soft, globular. Bowel sounds present. Extremities: Left thumb does look infected. Minimal swelling. It is painful. CONSIDERATION: 1. Infected left thumb in a patient who has uncontrolled diabetes. The patient is on IV Zosyn. 2. End-stage renal disease, noncompliant to dialysis. We did nephrology consult. 3. Low normal blood sugar. I am going to decrease her insulin, watch her for hypoglycemia. 4. Hypertension. 5. Hyperlipidemia. 6. Significant atherosclerotic cardiovascular and peripheral vascular disease. PLAN: Overall plan discussed with the patient and she is in agreement. cc: Yared Elizondo MD
[2017-01-24] MEDS ORDERED: NS 2,000 ML ONE (09:12)
[2017-01-24] MEDS ORDERED: HEPARIN ONE (09:12)
--- NOTE | 2017-01-24 12:33 | CONSULTATION ---
DATE OF CONSULTATION: 01/24/2017 DATE OF ADMISSION: 01/23/2017. REASON FOR ADMISSION: Infected left thumb and 2 digits on her left hand. DATE OF CONSULT: 01/15/2017. REASON FOR CONSULTATION: End-stage renal disease with assistance with medical management. HISTORY OF PRESENT ILLNESS: Ms. Cates is a 51-year-old, white female with multiple medical problems and hospitalizations secondary to her diabetes and end-stage renal disease. The patient subsequently states that she noticed some redness and pain on her left thumb approximately 2 weeks ago. She noticed that she thought it might be a spider bite. It started throbbing in nature. She has lost some skin and the skin continues to shed off. Subsequently, she states that she has had some fevers, some chills. No nausea, vomiting, no diarrhea. No chest pain. No increased work of breathing. Secondary to her previous histories her primary care physician, has decided to admit her for IV antibiotics. PAST MEDICAL HISTORY: 1. Insulin-dependent diabetes mellitus type 2, poorly controlled due to noncompliance. 2. Hypertension. 3. Hyperlipidemia. 4. Coronary artery disease. 5. End-stage renal disease with noncompliance. 6. Migraine headaches. 7. Anemia. 8. Morbid obesity. 9. Osteoarthritis. 10. Questionable history of a transient ischemic attack. 11. Colon resection. 12. Coronary artery disease. 13. Gastritis. 14. Reflux disease. PAST SURGICAL HISTORY: 1. The patient has a fistula. 2. She has had previous tunnel catheters. 3. Colon resection in the past. SOCIAL HISTORY: She is . She has no children. She lives with her spouse. She has family who are attentive to her care in regards with her mother and her sisters. Nonsmoker. Denies alcohol or illicit drug use. FAMILY HISTORY: Significant for: 1. Osteoporosis. 2. Chronic obstructive pulmonary disorder. 3. Hypertension. 4. Diabetes. 5. Hyperlipidemia. 6. Hypertension. 7. No end-stage renal disease, except for this patient. REVIEW OF SYSTEMS: Times 10 with pertinent positives listed above in the History of Present Illness. MOST RECENT VITAL SIGNS: Temperature 98.8 degrees, blood pressure 119/82, heart rate 58, respirations 20. She is on room air. Last recorded saturation 93%. She has had 320 and she has had 0 out with need for dialysis. MOST RECENT LABS: Sodium 124, potassium 5.9 chloride 82, CO2 20, BUN 71, creatinine 8.9, glucose 372. This was yesterday, with her labs currently pending this a.m. CBC: Previous hemoglobin 11.3, and a white count of 8.17. PHYSICAL EXAMINATION: General: This is a 51-year-old, white female. She is resting in bed. She appears chronically ill. She is in no acute distress. Skin: Warm and dry. HEENT: Normocephalic, atraumatic. Conjunctiva is pale. She has LATOYA. Mucous membranes moist. Neck: Supple. Trachea midline. She has no JVD. Cardiovascular: She is regular rate and rhythm. She has a soft systolic murmur. Lungs: Clear to auscultation anteriorly. Equal excursion. She is on room air. Abdomen: Obese, soft, nontender. Positive bowel sounds. Genitourinary: Not inspected. Minimal void with dialysis assist. Extremities: She has chronic 1 to 2+ lower extremity edema. No clubbing or cyanosis. Neurological: She is lethargic today secondary to a pain medication. Otherwise, alert and oriented to person and to place. ASSESSMENT AND PLAN: 1. End-stage renal disease. The patient is due for her routine dialysis treatment today. We will place her on a 2 K bath. She is to dialyze for 3.5 hours. We will attempt to pull her to her dry weight. 2. Electrolytes. Theses are stable with a mild hyperkalemia. She is to be placed on a 2 K bath and have dialysis today for correction. 3. Acid-base balance. This is stable with correction on dialysis. 4. Anemia. This is low but stable. 5. Infected thumb. The patient is currently on renal dosed antibiotics per her primary care. No indications for any changes or intervention. I would to thank you for allowing us to follow with this patient. This is Lizette Alvarez, Nurse Practitioner, dictating a consult note for Dr. Gerardo Ma on [facility], [id number]. Seen, data reviewed, discussed with Mela Troncoso on 01/24/17. I agree with the above assessment and plan of care. rg Dictated by TOBIN Medina for Gerardo Ma MD cc: TOBIN Medina MD Bharat K. Vakharia, MD MTDD
[2017-01-24 13:59] LABS: ALBUMIN 3.9 g/dL (3.5-5.0); CALCIUM 9.5 mg/dL (8.8-10.2); POTASSIUM 3.6 mmol/L (3.5-5.1)
[2017-01-24] MEDS: PATIENT'S OWN MED PO SCH ×2 (15:07→23:58)
[2017-01-24] MEDS: IMDUR PO SCH (15:56)
[2017-01-24] MEDS: NEPHRO-VITE PO SCH (15:56)
[2017-01-24] MEDS: CYMBALTA PO SCH (15:57)
[2017-01-24] MEDS: NORVASC PO SCH (15:57)
[2017-01-24] MEDS: PLAVIX PO SCH (15:57)
[2017-01-24] MEDS: COREG PO SCH ×2 (15:58→21:29)
[2017-01-24] MEDS: LYRICA PO SCH ×2 (15:58→21:29)
[2017-01-24] MEDS: CATAPRES PO SCH ×2 (15:58→21:29)
[2017-01-24] MEDS: PEPCID PO SCH ×2 (15:59→21:29)
[2017-01-24] MEDS ORDERED: INSULIN PEN NEEDLES ONE (16:14)
--- NOTE | 2017-01-24 17:03 | CONSULTATION ---
DATE OF CONSULTATION: 01/24/2017 REQUESTING PHYSICIAN: Dr. Elizondo. CONSULT CONCERNING: Infected left thumb. HISTORY OF PRESENT ILLNESS: A 51-year-old female with multiple medical problems presenting to the hospital with possibility of a spider bite to her left thumb. She noticed it became red and pain. She described the pain as throbbing in nature. She was admitted by her primary care physician, Dr. Elizondo and started on IV antibiotics. They did a septic workup during the time. She did have x-rays done that showed no obvious bony involvement. I was asked to weigh an opinion. PAST MEDICAL HISTORY: Includes insulin-dependent diabetes which is poorly controlled due to noncompliance, hypertension, hyperlipidemia, coronary artery disease, end-stage renal disease, migraine headaches, chronic anemia, morbid obesity, osteoarthritis, history of TIA. PAST SURGICAL: Includes previous colon resection, previous dialysis placement. ALLERGIES: Cipro and Relpax. CURRENT MEDICATIONS: Reviewed. SOCIAL HISTORY: Nonsmoker, denies alcohol or illicit drugs. FAMILY HISTORY: Positive for osteoporosis, COPD, hypertension, diabetes, hyperlipidemia . REVIEW OF SYSTEMS: Full 10 point review of systems obtained, negative except as specified in HPI. PHYSICAL EXAMINATION: Vital Signs: Patient is currently afebrile. Her vital signs have been stable. General: No acute distress. Resting comfortably during dialysis. HEENT: Normocephalic, atraumatic. Pupils equal, round, react to light. Mucous membranes moist. Oropharynx benign. Neck: Supple. Trachea midline. Cardiovascular: Regular rate and rhythm. Lungs: Grossly clear. Abdomen: Soft, nontender, nondistended. Extremities: She currently has an AV fistula in left upper extremity that is currently being accessed. Left thumb on the distal aspect on the dorsal aspect has some eschar noted to it. There is some mild erythema noted to the digit. Did not see any obvious fluid collections or feel any fluctuance. She is able to move it. Vascular. Her hands appear to be perfused. Neurologic: Grossly intact. Skin: As noted above. LABORATORY: From yesterday reviewed. White blood cell count 8, hematocrit 33, remainder of labs reviewed. X-rays as above. ASSESSMENT AND PLAN: A 51-year-old female with multiple medical comorbidities now with possible infected left thumb. 1. Multiple medical comorbidities at this time currently being managed by primary care physician, Dr. Elizondo. Continue to monitor her closely. 2. Infected left thumb. At this time patient is on antibiotics. Recommend local wound care and monitor the wound for right now. She does have what appears to be an eschar over the area which may need to be debrided but this time appears tightly adhered to the skin so will watch it for right now. Overall did not see any signs that the area needs to be drained at this time. cc: MD Yared Granger MD MTDD
[2017-01-24] MEDS: DESYREL PO SCH (21:29)
[2017-01-24] MEDS: SEROQUEL PO SCH (21:29)
[2017-01-24] MEDS: LIPITOR PO SCH (21:30)
[2017-01-25] MEDS: ZOSYN 2.25 GM/NS 2.25 GM/50 ML IVPB IV SCH ×4 (03:39→21:40)
[2017-01-25] MEDS ORDERED: LANTUS SUBQ SCH (07:03)
[2017-01-25] MEDS: HUMALOG SUBQ SCH ×4 (07:14→21:41)
[2017-01-25 07:16] LABS: ALBUMIN 3.2 g/dL (3.5-5.0); CALCIUM 9.6 mg/dL (8.8-10.2); POTASSIUM 5.1 mmol/L (3.5-5.1)
--- NOTE | 2017-01-25 07:32 | PROGRESS NOTE ---
DATE: 01/25/2017 SUBJECTIVE: Patient doing okay. No major issues. She tolerated dialysis. OBJECTIVE: Vital Signs: Patient is currently afebrile. Her vital signs were stable. General: No acute distress. Resting comfortably. HEENT: Normocephalic, atraumatic. Pupils equal, round, react to light. Mucous membranes moist. Oropharynx benign. Neck: Supple. Trachea midline. Cardiovascular: Regular rate and rhythm. Lungs: Grossly clear. Abdomen: Soft, nondistended. Extremities: An AV fistula left upper extremity. The left thumb distal aspect appears essentially unchanged. There is an eschar noted to it that is very much attached to the underlying skin. I do not see any obvious signs of fluid collection or fluctuance or abscess. LABORATORY: Currently pending for this morning. ASSESSMENT AND PLAN: A 51-year-old female with a left distal thumb infection. 1. Multiple medical comorbidities currently being managed by her primary care physician, Dr. Elizondo. 2. Infected left thumb. Patient is currently on antibiotics. I would recommend continued local wound care. Once his eschar becomes little more amenable to debridement, may consider debridement, but at this time continue current treatment. cc: MD Yared Granger MD
[2017-01-25] MEDS: NORCO-7.5 PO PRN ×3 (07:50→22:44)
--- NOTE | 2017-01-25 08:32 | PROGRESS NOTE ---
DATE: 01/25/2017 SUBJECTIVELY: Ms. Cates is doing better. She still has a throbbing pain in the left thumb. Some redness, eschar formation. Surgeon evaluated patient, recommendation noted. The patient underwent dialysis yesterday. No high-grade fever or chills. No chest pain. No nausea or vomiting. Oral intake is good. OBJECTIVE: General: The patient is much more alert and awake. Vital Signs: Her vital signs noted. Neck: Supple. Lungs: Bibasilar crepitations. Heart: S1 and S2 heard. 2/6 systolic murmur at the apex. Abdomen: Soft, globular. Bowel sounds present. Extremities: No cyanosis, clubbing. No acute DVT. WIND FIELD MANAGER: Alert, awake. Able to move all 4 limbs. Patient does have infected left thumb. The patient's Accu-Chek results reviewed. I am going to continue IV antibiotics, dialysis, wound care as per surgeon. The patient is due for dialysis tomorrow. If she continues to do well I am planning to discharge her home tomorrow. I am going to advance her insulin from 20-24 units of Lantus. Continue rest of the treatment and close observation. cc: Yared Elizondo MD
--- NOTE | 2017-01-25 11:23 | PROGRESS NOTE ---
DATE: 01/25/2017 SUBJECTIVE: Ms. Cates is resting quietly in bed. Her is at her bedside. She denies chest pain or increased work of breathing. Continues with pain to the left thumb. OBJECTIVE: Her most recent vital signs, temperature 97.7 degrees, blood pressure 111/71, heart rate 64, respirations 16. She is on room air. Last recorded saturation 95%. She has had 1000 in, she has had 5.3 L pulled on dialysis. Previous hemoglobin on the was 11.3. LABS: Sodium 133, potassium 5.1, chloride 92, CO2 23, BUN 51, creatinine 7.8, glucose 211. Anion gap 18. Calcium 9.6, phosphorus 8, albumin 3.2. PHYSICAL EXAMINATION: General: This is a 51-year-old white female. She is resting quietly in bed. She is in no acute distress. Skin: Warm and dry. HEENT: Normocephalic , atraumatic. Conjunctiva is pink. She has LATOYA. Mucous membranes moist. Neck: Supple. Trachea midline. No JVD. Cardiovascular: She has regular rate and rhythm. She has a soft systolic murmur. No gallop. Lungs: Clear to auscultation anteriorly. Equal excursion. She is on room air. Abdomen: Large, round ,obese soft, nontender. Positive bowel sounds. Genitourinary: Not inspected. Minimal void with dialysis assist. Extremities: Has trace pretibial edema to the lower extremities. She continues to have healing wound to the left thumb and 2 digits on her left hand that continue to have Band-Aids intact. Neurological: Alert and oriented x2. Patient is forgetful secondary to pain medication. ASSESSMENT AND PLAN: 1. End-stage renal disease. Patient tolerated her dialysis treatment well yesterday. We will plan for dialysis in the morning per her routine prescription. 2. Electrolytes and acid-base balance. Patient has mild hypernatremia secondary to #1 with correction on dialysis. 3. Anemia. This remains stable. 4. Infection to the left hand. This is now being followed by Dr. Wynn. Patient continues on renal dosed antibiotics. I would like to thank you for allowing us to follow with this patient. Seen, data reviewed, discussed with Mela Troncoso on 01/25/17. I agree with the above assessment and plan of care. rg Dictated by TOBIN Medina for Gerardo Ma MD cc: TOBIN Medina MD Bharat K. Vakharia, MD MTDD
[2017-01-25] MEDS: CATAPRES PO SCH ×2 (11:54→21:40)
[2017-01-25] MEDS: NORVASC PO SCH (11:54)
[2017-01-25] MEDS: COREG PO SCH ×2 (11:55→21:40)
[2017-01-25] MEDS: NEPHRO-VITE PO SCH (11:55)
[2017-01-25] MEDS: PLAVIX PO SCH (11:55)
[2017-01-25] MEDS: IMDUR PO SCH (11:55)
[2017-01-25] MEDS: PEPCID PO SCH ×2 (11:55→21:40)
[2017-01-25] MEDS: PATIENT'S OWN MED PO SCH ×2 (11:56→21:56)
[2017-01-25] MEDS: LYRICA PO SCH ×2 (11:56→21:40)
[2017-01-25] MEDS: CYMBALTA PO SCH (11:56)
[2017-01-25] MEDS: LIPITOR PO SCH (21:40)
[2017-01-25] MEDS: DESYREL PO SCH (21:40)
[2017-01-25] MEDS: SEROQUEL PO SCH (21:40)
[2017-01-25] MEDS: ULTRAM PO SCH (21:42)
[2017-01-26] MEDS: ZOSYN 2.25 GM/NS 2.25 GM/50 ML IVPB IV SCH ×3 (03:27→15:50)
[2017-01-26] MEDS: HUMALOG SUBQ SCH ×3 (06:30→16:51)
--- NOTE | 2017-01-26 06:48 | PROGRESS NOTE ---
DATE: 01/26/2017 SUBJECTIVELY: Ms. Cates is doing fair. The patient still has some pain and swelling on the left thumb. She did have a drop of purulent material coming under her eschar. No high-grade fever or chills. Denied any nausea or vomiting. The patient is scheduled to have dialysis today. Denied any diarrhea. OBJECTIVE: Vital Signs: Her vital signs noted. Neck: Supple. No JVD. Lungs: Bilateral good air entry present. CVS: S1 and S2 heard, 2/6 systolic murmur at the aortic area. Abdomen: Soft, globular. Bowel sounds present. Extremities: Left thumb looks infected but less inflamed. No cyanosis, clubbing. CONTENT MANAGEMENT SPECIALIST: Alert, awake. Able to move all 4 limbs. CONSIDERATIONS: The patient's problems include: 1. Infected left thumb. 2. Diabetes mellitus. 3. End-stage renal disease. Her other problems include hypertension and hyperlipidemia. PLAN: We will consider vancomycin after dialysis. Surgeon following patient with us. Overall plan discussed with the patient. She is in agreement. cc: Yared Elizondo MD
--- NOTE | 2017-01-26 06:51 | PROGRESS NOTE ---
DATE: 01/26/2017 SUBJECTIVE: Patient doing okay. No major issues. I discussed her care with Dr. Elizondo. He did express some mild amount of purulence from her wound; otherwise, everything is doing well. She tolerated dialysis. OBJECTIVE: Vital Signs: Patient is currently afebrile. Her vital signs stable. General: No acute distress. Resting comfortably. HEENT: Normocephalic, atraumatic. Pupils equal, round, reactive to light. Mucous membranes moist. Oropharynx benign. Neck: Supple. Trachea midline. Cardiovascular: Regular rate and rhythm. Lungs: Grossly clear. Abdomen: Soft, nontender, nondistended. Extremities: AV fistula in left upper extremity. Left thumb distal aspect still essentially unchanged. There is an eschar noted to it around the nail. It does not seem to be changing that much. The erythema appears to be essentially stable if not improved. I do not see any un-drained abscesses. I cannot express any purulence at this time. LABORATORY: Reviewed from yesterday. ASSESSMENT AND PLAN: A 51-year-old female with left distal thumb infection. 1. Multiple medical comorbidities. Currently being managed by her primary care physician, Dr. Elizondo. 2. Infected left thumb. At this time, patient is currently on antibiotics. She is going to continue with dialysis and take doxycycline at home. I will have nurses instruct the patient to clean the wound with Betadine every day. Hopefully, this will dry out the eschar and allow it to be more amenable to removal. Also keep the area clean. At this time, suspect she does not need any acute surgical intervention. cc: MD Yared Granger MD
[2017-01-26] MEDS: NORCO-7.5 PO PRN ×2 (06:59→10:18)
[2017-01-26] MEDS ORDERED: NS 2,000 ML MISC PRN (07:24)
[2017-01-26] MEDS ORDERED: HEPARIN IV PRN (07:24)
[2017-01-26] MEDS ORDERED: TIGHT: 0.2 ML/HR MISC PRN (07:24)
[2017-01-26 07:38] LABS: ALBUMIN 3.3 g/dL (3.5-5.0); CALCIUM 9.7 mg/dL (8.8-10.2); POTASSIUM 5.4 mmol/L (3.5-5.1)
[2017-01-26] MEDS ORDERED: VANCOMYCIN 1 GM/NS 1 GM/250 ML IVPB IV SCH (08:00)
[2017-01-26] MEDS ORDERED: HEPARIN ONE (08:00)
[2017-01-26] MEDS ORDERED: NS 2,000 ML ONE ×2 (08:01→16:53)
[2017-01-26] MEDS: LYRICA PO SCH (09:39)
[2017-01-26] MEDS: NORVASC PO SCH (09:39)
[2017-01-26] MEDS: NEPHRO-VITE PO SCH (09:39)
[2017-01-26] MEDS: PLAVIX PO SCH (09:39)
[2017-01-26] MEDS: IMDUR PO SCH (09:39)
[2017-01-26] MEDS: ULTRAM PO SCH (09:40)
[2017-01-26] MEDS: COREG PO SCH (09:40)
[2017-01-26] MEDS: PEPCID PO SCH (09:40)
[2017-01-26] MEDS: CYMBALTA PO SCH (09:41)
[2017-01-26] MEDS: CATAPRES PO SCH (09:41)
[2017-01-26] MEDS: PATIENT'S OWN MED PO SCH (10:14)
--- NOTE | 2017-01-26 14:17 | PROGRESS NOTE ---
DATE: 01/26/2017 TIME SEEN: 0800. SUBJECTIVE: Ms. Cates is resting quietly in bed. She is sitting up. She is eating her breakfast. She denies any chest pain, increased work of breathing, left thumb pain. OBJECTIVE: Vital signs: Her most recent vital signs, temperature 97.8 degrees , blood pressure 105/72, heart rate 63, respirations 16. She is on room air. Last recorded saturation 99%. She has had 720 in, 0 recorded out. General: This is a 51-year-old white female. She is sitting up in bed. She is eating her breakfast. She is in no acute distress. Skin: Warm and dry. HEENT: Normocephalic, atraumatic. Conjunctivae is pale. She has LATOYA. Mucous membranes moist. Neck: Supple. Trachea midline. No JVD. Cardiovascular: Regular rate and rhythm. She does have a soft systolic murmur. Lungs: Clear to auscultation anteriorly. Equal excursion on room air. Abdomen: Obese, soft, nontender. Positive bowel sounds. Extremities: Have no edema. No clubbing or cyanosis. Fistula to the left upper arm. Genitourinary: Not inspected. Minimal void with dialysis assist. Neurological: Alert and oriented x3. LABORATORY: Her most recent laboratory, sodium 131, potassium 5.4, chloride is 89, CO2 21, BUN 60, creatinine 8.2, glucose 159, her anion gap is 21, calcium 9.7, phosphorus 9.3, albumin 3.3. Her previous hemoglobin is 11.3 on the . ASSESSMENT AND PLAN: 1. End-stage renal disease. Patient is due for her routine dialysis treatment today. We will place her on a 2 K bath. She is to dialyze for 3.5 hours. We will attempt to pull her to her dry weight. 2. Electrolytes and acid-base balance. She has mild hyponatremia, mild hyperkalemia with correction on dialysis. 3. Anemia. This has remained stable. 4. Cellulitis with eschar noted to the left thumb. This is being followed by Dr. Wynn. He has requested that we start her on vancomycin 1 gram x2 weeks at the outpatient clinic. We will notify them and let them know that this will need to be continued and Dr. Wynn will follow up on an outpatient basis. I would like to thank you for allowing us to follow with this patient. Seen, data reviewed, discussed with Mela Troncoso on 01/26/17. I agree with the above assessment and plan of care. rg Dictated by TOBIN Medina for Gerardo Ma MD cc: TOBIN Medina MD Bharat K. Vakharia, MD [facility]
[2017-01-26 16:08] VITALS: BP 134/62
--- NOTE | 2017-01-27 15:49 | DISCHARGE SUMMARY ---
ADMISSION DATE: 01/23/2017 DISCHARGE DATE: 01/26/2017 FINAL DISCHARGE DIAGNOSES: 1. Infected left thumb. 2. Uncontrolled diabetes mellitus. 3. End-stage renal disease. 4. Hypertension. 5. Hyperlipidemia. HISTORY AND HOSPITAL COURSE: Ms. Cates is a 51-year-old white female patient admitted with possible insect bite on the left thumb. It was looking very infected, inflamed. The patient came to the emergency room, evaluated by ER physician. When I evaluated the patient I was not feeling comfortable discharging the patient home. I decided to admit the patient for IV antibiotics and surgical evaluation. The patient was admitted, started her on IV antibiotics. Surgeon evaluated the patient, recommendation noted. The patient had a tight eschar on the left thumb. The patient did not spike a temperature. We gave her pain medication. Continued home medicine. Her blood sugar was low so I did cut back her insulin. The patient missed her dialysis last Tuesday. We resumed her dialysis. Importance of dialysis explained to the patient. Overall patient is doing better. We feel comfortable to discharge patient home. We will continue oral antibiotics. Follow up with surgeon. Advised her to continue dialysis. Follow up with me in a week. I gave her pain medicine. Take antibiotics as recommended by surgeon. In case of more distress, call us back or go to the emergency room. LAB DATA: Revealed potassium 5.4, sodium 131, BUN 60, creatinine 8.2. The patient did receive dialysis after this blood test. Her hemoglobin 11.3, hematocrit 33.6, WBC count 8.17, platelet count was 115. DISCHARGE INSTRUCTIONS: Advised patient to do local wound care as explained by surgeon. Take medicine regularly. Resume her regular dose of insulin. Monitor Accu-Chek. Follow up as scheduled. The patient was discharged home after dialysis. In case of more distress, call us back or go to the emergency room. cc: Yared Elizondo MD
== END 2017-01-26 21:15 | disposition home or self-care (01) ==
LOC: ED 16:35 → 4N 19:54
PROVIDERS: ADMIT Internal Medicine; ATTEND Internal Medicine

== ENCOUNTER 2017-04-04 21:31 | Inpatient (IN) ==
[2017-04-04] MEDS ORDERED: ASPIRIN PO STA (21:37)
[2017-04-04] MEDS ORDERED: MORPHINE IV ONE ×2 (21:44→22:20)
[2017-04-04] MEDS ORDERED: ZOFRAN IV ONE (21:45)
[2017-04-04] MEDS ORDERED: NITROGLYCERIN TOP ONE (21:45)
[2017-04-04 22:02] LABS: MANUAL DIFF NEEDED? NO
[2017-04-04 22:05] LABS: BASO% 0.1 % (0.0-0.8); EOS# 0.15 X1000 (0.0-0.7); EOS% 1.7 % (0.0-10.0); HEMATOCRIT 34.6 % (37.0-47.0); HEMOGLOBIN 11.8 g/dL (12.0-16.0); IMM GRAN# 0.03 X1000 (0.0-0.04); IMM GRAN% 0.3 % (0.0-0.5); LYMPH# 1.24 X1000 (1.2-3.4); LYMPH% 13.8 % (20.5-51.1); MCH 29.8 PG (27-31); MCHC 34.1 g/dL (33-37); MCV 87.4 FL (81-99); MONO# 0.97 X1000 (0.11-0.59); MONO% 10.8 % (1.7-9.3); MPV 12.2 FL (7.4-10.4); NEUT% 73.3 % (42.2-75.2); PLT 157 X1000 (130-400); RBC 3.96 XMIL (4.2-5.4)
[2017-04-04] MEDS ORDERED: REGLAN IV ONE (22:20)
[2017-04-04 22:25] LABS: INR 1.12; PROTIME 11.9 Seconds (9.2-11.7); PTT 30.3 Seconds (22.0-36.0)
--- NOTE | 2017-04-04 22:38 | PROVIDER DOCUMENTATION ---
This chart was entered by Prisca Gusman Scribe, acting as scribe for James Ruiz MD. HPI-Chest Pain - General Chief Complaint: Chest Pain Stated Complaint: CP Time Seen by Provider: 04/04/17 21:36 Source: patient Allergies/Adverse Reactions: Patient Allergies Allergy/AdvReac Type Severity Reaction Status Date / Time rizatriptan benzoate * Allergy Mild SHORTNESS Verified 01/23/17 17:42 [From Maxalt] OF BREATH ciprofloxacin HCl * Allergy Unknown Unknown Verified 01/23/17 17:42 [From Cipro] Sulfa (Sulfonamide Allergy Unknown Unknown Verified 01/23/17 17:42 Antibiotics) ondansetron HCl * AdvReac Mild HEADACHE Verified 01/23/17 17:42 [From Zofran] Home Medications: Home Medication List Medication Instructions Recorded Confirmed Last Taken Type Trazodone [Desyrel] 50 mg PO QHS 09/30/13 01/23/17 01/22/17 21:00 History Carvedilol [Coreg] 25 mg PO BID #60 tablet 09/25/15 01/23/17 01/23/17 09:00 Rx Pregabalin [Lyrica] 300 mg PO BID 10/02/15 01/23/17 01/23/17 09:00 History Cinnamon Bark [Cinnamon] 1,000 mg PO BID 04/08/16 01/23/17 01/23/17 09:00 History Clopidogrel Bisulfate [Plavix] 75 mg PO DAILY 04/08/16 01/23/17 01/23/17 09:00 History Folic Acid/Vitamin B Comp W-C 0.8 mg PO DAILY 04/08/16 01/23/17 01/23/17 09:00 History [Folic Acid Xtra Caplet] Quetiapine Fumarate [Seroquel] 100 mg PO HS 04/08/16 01/23/17 01/22/17 21:00 History ATORVAstatin [Lipitor] 40 mg PO QHS 09/17/16 01/23/17 01/22/17 21:00 History Amlodipine [Norvasc] 10 mg PO DAILY #0 tablet 10/14/16 01/23/17 01/23/17 09:00 Rx Loratadine [Claritin] 10 mg PO DAILY PRN PRN #90 capsule 12/06/16 01/23/17 Unknown Rx Clonidine [Catapres] 0.2 mg PO BID 01/23/17 01/23/17 01/23/17 09:00 History Duloxetine [Cymbalta] 60 mg PO DAILY 01/23/17 01/23/17 01/23/17 09:00 History Famotidine [Pepcid] 20 mg PO BID 01/23/17 01/23/17 01/23/17 09:00 History Insulin Glargine [Lantus] 30 unit SUBQ QHS 01/23/17 01/23/17 01/22/17 21:00 History Insulin Lispro [Humalog] 10 unit SQ DIRECTED 01/23/17 01/23/17 01/22/17 21: 00 History Isosorbide Mononitrate E.r. [Imdur] 90 mg PO DAILY 01/23/17 01/23/17 01/23/17 09 :00 History Doxycycline 100 mg PO BID #20 tablet 01/26/17 Unknown Rx Hydrocodone/APAP 7.5 mg/325 mg 1 each PO Q6H PRN PRN #0 tablet 01/26/17 Unknown Rx [[place]-7.5] - History of Present Illness-CP Nature of Presenting Problem: 51 Y/O F presents to ED with Chest Pain. 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 Pt states that there is pressure in the middle of her chest. Pt has an extensive cardaic hx of 2 heart attacks, blockage in part of her heart. pt has a hx of HTN, High cholestrol, diabetes, pt is on dialysis with end stage renal failure. Location: reports: central Chest Pain Radiation: reports: no radiation Quality of Pain: reports: pressure Severity in ED: moderate Onset/Duration: just prior to arrival, 1-3 hours ago Timing: still present Context/Activities at Onset: reports: none Associated Symptoms: reports: denies symptoms Nitro Today/Relief: 0.4 mg x 1, provided by ED Aspirin Treatment Today: 325 mg x 1, provided by ED Prior Chest Pain/Cardiac Workup: reports: heart attack Similar Symptoms Previously?: Yes Review of Systems - Adult - REVIEW OF SYSTEMS - ADULT Constitutional: denies: chills, fever Eyes: reports: no symptoms reported Ears, Nose, Mouth & Throat: reports: no symptoms reported Cardiovascular: reports: chest pain Respiratory: denies: cough, shortness of breath Gastrointestinal: reports: no symptoms reported Genitourinary: reports: no symptoms reported Musculoskeletal: reports: no symptoms reported Integumentary: reports: no symptoms reported Neurological: reports: no symptoms reported Psychiatric: reports: no symptoms reported Endocrine: reports: no symptoms reported Hematologic/Lymphatic: reports: no symptoms reported Allergic/Immunologic: reports: no symptoms reported All Other Systems: Reviewed and Negative Past History - Adult - PAST MEDICAL HISTORY-ADULT Review of Records: reports: Old Records Reviewed, Nursing Assessment Review, Medications Reviewed, Social history reviewed & non-contributory. Major Childhood Illnesses: reports: denies history Cardiovascular: reports: CHF, HTN, murmur Respiratory: reports: asthma, COPD Gastrointestinal: reports: GERD Obstetrical/Gynecological: reports: denies history Genitourinary: reports: dialysis (TTS), ESRD Musculoskeletal: reports: arthritis Neurological: reports: speech difficulty Psychiatric: reports: depression Endocrine/Immune: reports: Diabetes Other Conditions: reports: denies history - PRIOR SURGERIES/PROCEDURES Surgical/Procedure History: reports: appendectomy, cholecystectomy, hysterectomy , indwelling device (AV fist left arm), orthopedic (extremity) - PRIOR HOSPITALIZATIONS Prior Hospitalizations: reports: none - IMMUNIZATION STATUS Childhood Immunizations: See Nurse Assessment Flu Vaccine: See Nurse Assessment - FAMILY HISTORY Family History: reviewed, not pertinent - SOCIAL HISTORY Smoking: non-smoker Substance Use: none/never Alcohol Use Frequency: never Living Situation: family Physical Exam-General - CONSTITUTIONAL General Appearance: alert, no apparent distress, obese - EYES Eyes: pink conjunctivae, anisocoria - HEAD, EARS, NOSE, MOUTH & THROAT HENMT: moist mucous membranes, normal ENT inspection, TMs normal, pharynx normal - NECK Neck: non-tender, full range of motion, supple, normal inspection - RESPIRATORY Respiratory: chest non-tender, lungs clear, normal breath sounds - CARDIOVASCULAR Cardiovascular: normal peripheral pulses, regular rate, rhythm - GASTROINTESTINAL (ABDOMEN) Abdominal Exam: normal bowel sounds, non tender, soft - LYMPHATIC Lymphatic: no adenopathy - MUSCULOSKELETAL Back Exam: normal inspection, no CVA tenderness, no vertebral tenderness Extremity: normal range of motion, non-tender, normal gait - SKIN Integumentary: normal color, normal turgor, warm/dry - PSYCHIATRIC Psych/Mental Status: normal mood/affect, normal thought content, normal thought process, oriented x 3 Progress - PLAN OF CARE/RESULTS Progress/Plan/Lab Results: Vital Signs - 8 hr 04/04/17 21:42 Temperature 98.3 F Pulse Rate 94 H Respiratory Rate 12 Blood Pressure 181/122 O2 Sat by Pulse Oximetry 98 Laboratory Results - last 24 hr 04/04/17 04/04/17 04/04/17 21:52 21:52 21:52 WBC 9.00 RBC 3.96 L Hgb 11.8 L Hct 34.6 L MCV 87.4 MCH 29.8 MCHC 34.1 RDW Std Deviation 14.0 Plt Count 157 MPV 12.2 H Immature Gran % (Auto) 0.3 Neut % (Auto) 73.3 Lymph % (Auto) 13.8 L [place] % (Auto) 10.8 H Eos % (Auto) 1.7 Baso % (Auto) 0.1 Immature Gran # (Auto) 0.03 Neut # (Auto) 6.60 H Lymph # (Auto) 1.24 [place] # (Auto) 0.97 H Eos # (Auto) 0.15 Baso # (Auto) 0.01 PT INR PTT (Actin FS) D-Dimer 1.20 H Sodium 129 L Potassium 4.3 Chloride 84 L Carbon Dioxide 20 L Anion Gap 25 BUN 77 H Creatinine 9.6 H Estimated GFR/1.73 m2 4 BUN/Creatinine Ratio 8 Glucose 513 H* Calculated Osmolality 305 Calcium 9.6 Magnesium 2.0 Total Bilirubin 0.30 AST 12 ALT 11 Alkaline Phosphatase 136 H Creatine Kinase 52 Troponin T Oyh-V-Lqmypobachf Pept Total Protein 8.4 H Albumin 3.6 Globulin 4.8 Albumin/Globulin Ratio 0.8 04/04/17 04/04/17 04/04/17 21:52 21:52 21:52 WBC RBC Hgb Hct MCV MCH MCHC RDW Std Deviation Plt Count MPV Immature Gran % (Auto) Neut % (Auto) Lymph % (Auto) [place] % (Auto) Eos % (Auto) Baso % (Auto) Immature Gran # (Auto) Neut # (Auto) Lymph # (Auto) [place] # (Auto) Eos # (Auto) Baso # (Auto) PT 11.9 H INR 1.12 PTT (Actin FS) 30.3 D-Dimer Sodium Potassium Chloride Carbon Dioxide Anion Gap BUN Creatinine Estimated GFR/1.73 m2 BUN/Creatinine Ratio Glucose Calculated Osmolality Calcium Magnesium Total Bilirubin AST ALT Alkaline Phosphatase Creatine Kinase Troponin T 0.200 H Mrh-Q-Sxkolucmaso Pept > 44009 H Total Protein Albumin Globulin Albumin/Globulin Ratio Orders Category Date Time Status Cardiac Monitoring DIRECTED Care 04/04/17 21:37 Active FSBS/Accucheck Result RTQ1H Care 04/04/17 22:41 Active Saline Loc NOW Care 04/04/17 21:37 Active CTA [CT ANGIOGRM/PULMONARY ARTERIES] [CT] Stat Exams 04/04/17 22:48 Taken CBC WITH ELECTRONIC DIFF [HEME] Stat Lab 04/04/17 21:52 Completed CK PROFILE [SP CHEM] Stat Lab 04/04/17 21:52 Completed COMPREHENSIVE METABOLIC PANEL [CHEM] Stat Lab 04/04/17 21:52 Completed D-DIMER [CHEM] Stat Lab 04/04/17 21:52 Completed MAGNESIUM [CHEM] Stat Lab 04/04/17 21:52 Completed PRO B-NATRIURETIC PEPTIDE Stat Lab 04/04/17 21:52 Completed PROTIME WITH INR [COAG] Stat Lab 04/04/17 21:52 Completed PTT [COAG] Stat Lab 04/04/17 21:52 Completed TROPONIN T Stat Lab 04/04/17 21:52 Completed Aspirin Med 04/04/17 21:37 Discontinued 325 mg PO STAT STA Insulin Human Regular [Humulin R] Med 04/04/17 22:39 Discontinued 10 unit IV NOW ONE Metoclopramide [Reglan] Med 04/04/17 22:20 Discontinued 5 mg IV NOW ONE Morphine Med 04/04/17 21:44 Discontinued 4 mg IV NOW ONE Morphine Med 04/04/17 22:20 Discontinued 4 mg IV NOW ONE Nitroglycerin Med 04/04/17 21:45 Discontinued 1 inch TOP NOW ONE Ondansetron [Zofran] Med 04/04/17 21:45 Discontinued 4 mg IV NOW ONE EKG [EKG] Stat Ther 04/04/17 21:33 Ordered EKG [EKG] Stat Ther 04/04/17 23:40 Ordered Result Diagrams: 04/04/17 21:52 04/04/17 21:52 - EKG 1 Time of EKG reading by physician:: 21:29 EKG Read and Signed by:: James Ruiz EKG Interpretation (*Must complete 3 of following elements*): Abnormal Rate: 95 Rhythm: Sinus Rhythm with occasional premature ventricular complexes [place]: left (deviation) QRS: LBB Comments: Abnormal ECG Departure - Departure Date of Disposition Decision: 04/05/17 Time of Disposition Decision: 00:12 DIAGNOSIS: ESRD (end stage renal disease) on dialysis Disposition: ADMITTED INPATIENT 09 Certified Medical Emergency: Emergent Condition: Stable Referrals and Follow-Ups: Yared Elizondo MD [Primary Care Provider] - - Critical Care Note This patient required my direct & personal management of CC.: No Attestation - Physician/ JORDAN Attestation Patient care was provided by Advanced Practice Provider:: No The physician spent face to face time with patient:: Yes Advanced Practice Provider documentation review:: Supervising physician onsite and consulted in the evaluation and care of this patient. The physician did have a face to face encounter with the patient. This chart was documented by the indicated scribe, (Prisca Gusman Scribe) and accurately reflects the services I performed and decisions made by me, James Ruiz MD, as attested by the provider's signature.
[2017-04-04] MEDS ORDERED: HUMULIN R IV ONE (22:39)
[2017-04-04 22:40] LABS: ALBUMIN 3.6 g/dL (3.5-5.0); CALCIUM 9.6 mg/dL (8.8-10.2); POTASSIUM 4.3 mmol/L (3.5-5.1); TOTAL BILIRUBIN 0.3 mg/dL (0.20-1.00); TOTAL PROTEIN 8.4 g/dL (6.3-8.3)
[2017-04-05] MEDS ORDERED: CLARITIN PO PRN (00:44)
[2017-04-05] MEDS ORDERED: SODIUM CHLORIDE 0.9% INJ SCH (01:44)
[2017-04-05] MEDS ORDERED: TYLENOL PO PRN (01:44)
[2017-04-05 02:25] LABS: HEMOGLOBIN A1C 11.1 % (4.8-6.0)
[2017-04-05] MEDS: MORPHINE IV PRN ×2 (02:33→12:23)
[2017-04-05] MEDS: HUMALOG SUBQ SCH ×5 (05:15→21:50)
[2017-04-05] MEDS: HEPARIN SUBQ SCH ×3 (05:15→21:49)
[2017-04-05] MEDS: PROTONIX IV SCH (05:15)
[2017-04-05 05:42] LABS: POTASSIUM 4.5 mmol/L (3.5-5.1)
[2017-04-05 05:43] LABS: CALCIUM 9.7 mg/dL (8.8-10.2)
--- NOTE | 2017-04-05 05:47 | EKG Report ---
Test Performed on : 04/04/2017 9:29:16 PM Test Reason : CP Blood Pressure : / mmHG Vent. Rate : 095 BPM Atrial Rate : 095 BPM P-R Int : 200 ms QRS Dur : 142 ms QT Int : 424 ms P-R-T Axes : 000 -55 093 degrees QTc Int : 532 ms Sinus rhythm. with occasional premature ventricular complexes. Left axis deviation Left bundle branch block Abnormal ECG When compared with ECG of 20-MAR-2017 19:42, premature ventricular complexes. are now present NV interval has decreased Left bundle branch block is now present Criteria for Anterior infarct are no longer present Criteria for Inferior infarct are no longer present Unconfirmed Result
[2017-04-05] MEDS ORDERED: HUMALOG SUBQ SCH (07:00)
--- NOTE | 2017-04-05 07:05 | EKG Report ---
Test Performed on : 04/05/2017 06:26:33 AM Test Reason : CP Blood Pressure : / mmHG Vent. Rate : 075 BPM Atrial Rate : 075 BPM P-R Int : 280 ms QRS Dur : 140 ms QT Int : 462 ms P-R-T Axes : 009 -59 080 degrees QTc Int : 515 ms Sinus rhythm. with 1st degree AV block. Left axis deviation Nonspecific intraventricular block Cannot rule out Anterior infarct , age undetermined Nonspecific T wave abnormality Abnormal ECG When compared with ECG of 04-APR-2017 21:29, premature ventricular complexes. are no longer present RI interval has increased Nonspecific T wave abnormality has replaced inverted T waves in Lateral leads Confirmed by Oswaldo Barnes MD ([id number]) on 04/06/2017 9:27:02 PM
--- NOTE | 2017-04-05 07:31 | Diag Imaging Result Doc PS360 ---
CT ANGIOGRM/PULMONARY ARTERIES - 04/04/2017 INDICATION: sob TECHNIQUE: Axial CT images were obtained after administering intravenous contrast. Coronal MIP images were generated. A CT dose reduction protocol was used. COMPARISON: Numerous previous exams including 11/26/2016 FINDINGS: There is no pulmonary embolism. There is cardiomegaly. There is severe triple-vessel calcified coronary artery disease. 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 This measures 3.4 x 2.7 cm. There is some mild central pulmonary edema with groundglass opacity and smooth intralobular septal thickening. There is a stable small nodule at the posterior body of the pancreas with central calcification. This is stable from 04/01/2015. Stable shotty mediastinal lymph nodes. Bony structures are intact. IMPRESSION: 1. Very severe coronary artery disease. 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 Referral to cardiothoracic surgery recommended. 2. Mild pulmonary edema. No pleural effusions. 3. Stable small nodule of the pancreatic body. Indeterminate but not suspicious in appearance. Electronically signed by Patrice Mcmahon 04/05/2017 7:28 AM
[2017-04-05] MEDS ORDERED: TIGHT: 0.2 ML/HR MISC PRN (08:04)
[2017-04-05] MEDS ORDERED: HEPARIN IV PRN (08:04)
[2017-04-05] MEDS ORDERED: NS 2,000 ML MISC PRN (08:04)
[2017-04-05] MEDS ORDERED: NS 2,000 ML ONE (08:15)
[2017-04-05] MEDS ORDERED: HEPARIN ONE (08:15)
--- NOTE | 2017-04-05 08:48 | HISTORY AND PHYSICAL ---
PRIMARY CARE PHYSICIAN: Dr. Elizondo. CARD SERVICES SPECIALIST: Dr. Clarence Tolbert. TELEHEALTH COORDINATOR: Dr. Ma. CHIEF COMPLAINT: Chest pain. HISTORY OF PRESENT ILLNESS: Ms. Cates is a 51-year-old female with multiple medical complications. She has uncontrolled diabetes mellitus, atherosclerotic cardiovascular disease, cerebrovascular disease, peripheral vascular disease, hypertension, hyperlipidemia, and end-stage renal disease with hemodialysis. She states that she was on Tuesday/Tuesday/ Tuesday dialysis, has not missed but was switched over to Tuesday//Tuesday dialysis so will need dialysis today as it is Tuesday. She started having chest pain, roughly 7:30 p.m. last night. She stated it was a heaviness more than pain. It was midsternal, did not radiate into her neck, back, jaws, or arms. The patient had a cardiac catheterization earlier this year in September, I believe, that did show extensive atherosclerotic disease as well as diastolic and systolic heart failure; however, she is being treated medically at this time. Surgical intervention, apparently , was mentioned to her and her as an ultimate goal. The patient states that she has cyclic constipation then takes laxatives and has diarrhea. She states that she has not had any fever, chills, cough. She is positive for dyspnea on exertion and PND and orthopnea and bilateral lower extremity edema which she normally has. The patient is almost anuric. Laboratory data was obtained. She had elevated troponins which has been the case since 2015. Her proBNP was elevated at greater than 35,000. Again, the patient generally has a proBNP greater than 35,000. Her CKs were not elevated. Her blood glucose was 513. She did have an elevated D- dimer. The ER provider ordered a CT angio which apparently excluded pulmonary embolism; however, a report was not available at the time of dictation. The patient will be admitted to CICU inpatient for further evaluation and treatment. PAST MEDICAL HISTORY: 1. Insulin-dependent diabetes mellitus poorly controlled due to noncompliance. 2, Hypertension. 3. Hyperlipidemia. 4. Coronary artery disease status post [place]. 5. End-stage renal disease on hemodialysis. 6. Migraine headaches. 7. Anemia of chronic disease. 8. Morbid obesity. 9. Osteoarthritis. 10.History of TIA. 11.Gastritis. 12.GERD. PREVIOUS SURGICAL HISTORY: 1. Colon resection. 2. Cardiac catheterization. 3. Hysterectomy. 4. Appendectomy. 5. Cholecystectomy. SOCIAL HISTORY: , lives with her sister. However, is at bedside. Denies tobacco, alcohol, or illicit drug use or abuse. FAMILY HISTORY: Mother had osteoporosis, COPD, and hypertension. Strong family history of diabetes mellitus, hyperlipidemia, and hypertension. ALLERGIES: To Maxalt causing shortness of breath, Cipro and sulfa antibiotics causing an unknown reaction and Zosyn causing headache. HOME MEDICATIONS: 1. Trazodone. 2. Lyrica. 3. Seroquel. 4. Plavix. 5. Cinnamon. 6. Folic acid with B complex. 7. Multivitamin. 8. Lipitor. 9. Claritin. 10. Cymbalta. 11. Lantus. 12. Pepcid. 13. Catapres. 14. Imdur. 15. Humalog insulin. 16. [place]. 17. Norvasc. REVIEW OF SYSTEMS: A 14-point review of systems was conducted with patient. Pertinent positives listed above in the HPI. All other systems reviewed and found to be negative. PHYSICAL EXAMINATION: VITAL SIGNS: Temp 98.3, pulse 94, respirations 12 to 14, blood pressure 153/87 , oxygen saturation 99% on room air. GENERAL: Morbidly obese 51-year-old female lying in the ER stretcher, answers all questions appropriately. is at bedside. In no acute distress. HEENT: Head is atraumatic, normocephalic. Pupils equal round and reactive to light. Extraocular eye movements intact. Sclera is anicteric. Conjunctiva is mildly pale. Oral mucosa is moist. NECK: Short and thick. No JVD or hepatojugular reflux could be noted, possibly related to poor body habitus. No carotid bruit noted on auscultation. CARDIAC: S1, S2 appreciated. A 2/6 systolic ejection murmur noted. No gallops or rubs. LUNGS: Bibasilar crepitations noted. Decreased air entry bilaterally. No rhonchi, no rales. Symmetrical rise and fall of respirations. ABDOMEN: Protuberant, soft, nondistended, nontender. Bowel sounds present in all 4 quadrants, normoactive. No pulsatile mass or organomegaly. EXTREMITIES: 2+ pitting edema bilateral lower extremities from mid thigh down. Chronic color change likely related to chronic venous stasis, bilateral lower extremities. 1 + pedal pulses bilaterally. GENITOURINARY: The patient is almost completely anuric at this point. No bladder distension, otherwise deferred. NEUROLOGICAL: Alert and oriented x3. Cranial nerves 2-12 grossly intact. DIAGNOSTIC DATA: CTA excluded pulmonary embolism. LABORATORY DATA: WBC 9, hemoglobin 11.8, hematocrit 34.6, platelet count 157. PT 11.9, INR 1.12. D-dimer 1.20. Sodium 129, potassium 4.3, chloride 84, carbon dioxide 20, BUN 77 , creatinine 9.6, glucose 513. CK 52, troponin 0.200. ProBNP greater than 35,000. ASSESSMENT AND PLAN: 1. Chest pain with known coronary artery disease. Patient has chronic troponinemia. She has had elevated troponin since 2014. The patient's medications at this point have ultimately been maximized. Will continue home medications, consult Dr. Clarence Tolbert, parcel post delivery. Recommend Ranexa possibly to help relative frequent chest pain. Will not start at this point as there is no indication that it decreases morbidity. Trend cardiac enzymes. Continue Plavix, add 325 aspirin daily at this time, defer continuation to Cardiology. Repeat EKG in the a.m. Will not order echocardiogram or cardiac stress test as these have been done recently , and the patient recently received a cardiac catheterization in September. Will defer to Cardiology. 2. Hypertension. Continue home medication. 3. End-stage renal disease with hemodialysis. Consult Dr. Ma for hemodialysis. 4. Diabetes mellitus type 2, now insulin dependent with hypoglycemia, poorly controlled. Insulin was given IV in the emergency room. Continue long-acting insulin, put on q.4 h. sliding scale insulin. 5. Hyponatremia. Patient's sodium level is 129. She will receive hemodialysis in the a.m. Will not be able to treat at this point, as she does not make urine, so we will not be able to diurese, and she appears clinically to be fluid volume overloaded, so will not be able to give normal saline. 6. Hyperlipidemia. Check a direct lipid profile. Continue statin. Plan has been discussed with patient and family. They are aware that Dr. Elizondo, her primary care provider, will be made aware of her hospitalization and will resume care in the morning. Further recommendations per patient's clinical course. Dictated by TOBIN Obrien for Olegario Watkins MD Seen,examined and discussed case with MACHINE EGG WASHER. cc: TOBIN Obrien MD Bharat K. Vakharia, MD Peter Johnson, MD Reginald D. Gladish, MD MTDD
[2017-04-05] MEDS ORDERED: CYMBALTA PO SCH (09:00)
[2017-04-05] MEDS ORDERED: NEPHRO-VITE PO SCH (09:00)
[2017-04-05] MEDS ORDERED: IMDUR PO SCH (09:00)
[2017-04-05] MEDS: ASPIRIN PO SCH (12:15)
[2017-04-05] MEDS: PLAVIX PO SCH (12:15)
[2017-04-05] MEDS: LYRICA PO SCH ×2 (12:17→21:49)
[2017-04-05] MEDS: NORVASC PO SCH (12:17)
[2017-04-05] MEDS: PEPCID PO SCH ×2 (12:17→21:49)
[2017-04-05] MEDS: CATAPRES PO SCH ×2 (12:18→21:49)
--- NOTE | 2017-04-05 15:16 | CONSULTATION ---
DATE OF CONSULTATION: 04/05/2017 IMPRESSION: 1. Several hour episode of chest pressure last night precipitating hospitalization. 2. Troponins mildly above normal range but not diagnostic of myocardial insult with normal CPKs. Suspect mildly elevated troponin is more likely related to renal failure and not myocardial insult. 3. Severe coronary atherosclerosis and moderate aortic stenosis. 4. End-stage renal disease requiring chronic hemodialysis. 5. Diabetes mellitus requiring insulin. 6. Obesity. 7. Hyperlipidemia. 8. Gastroesophageal reflux. RECOMMENDATIONS: 1. Augment medical therapy for angina with increase and long-acting oral nitrate. 2. Continue to treat gastroesophageal reflux aggressively with proton pump inhibitor and Pepcid. 3. If patient remains clinically stable overnight, reasonable to discharge to home to follow up with her regular retail pharmacy technician, Dr. Tolbert. HISTORY: This 51-year-old white female with past history of severe coronary atherosclerosis, moderate aortic stenosis, diabetes mellitus requiring insulin for control, cerebral vascular disease, peripheral vascular disease, hypertension, hyperlipidemia, end-stage renal disease requiring hemodialysis and obesity was admitted last night after an episode of chest pressure. She also has history of gastroesophageal reflux. She reports several hour episode of chest pressure last night. She had eaten soup in the afternoon and had fairly intense gastroesophageal reflux symptoms following this. She had not had anything further to eat. Chest pressure lasted several hours and did not radiate, and it resolved spontaneously. She relates some associated headache. She has had further headache today and has been administered parenteral morphine and is somewhat groggy limiting her ability to give much in the way of history. Not all of her Cardiology records are presently available. She apparently had a cardiac catheterization study in September of this year and was recommended to have cardiac surgery although this was being delayed until she could become more stable. Specifically, she indicates that her heart strength was reduced and that it was desired that her strength improve. PAST MEDICAL HISTORY: 1. Atherosclerotic coronary disease. 2. Moderate aortic stenosis. 3. End-stage renal disease requiring hemodialysis. 4. Hypertension. 5. Hyperlipidemia. 6. Obesity. 7. Migraine headaches. 8. Prior transient ischemic attack. 9. Gastroesophageal reflux disease and gastritis. PAST SURGICAL HISTORY: Partial colon resection, hysterectomy, appendectomy, and cholecystectomy. ALLERGIES: She is allergic or intolerant of Maxalt, Cipro, and sulfa antibiotics as well as Zosyn. MEDICATIONS PRIOR TO ADMISSION: As listed. SOCIAL HISTORY: She is . She does not smoke or use alcohol. FAMILY HISTORY: Positive for coronary artery disease and hypertension. She also has a family history of diabetes mellitus and hyperlipidemia. REVIEW OF SYSTEMS: Pulmonary: Noncontributory beyond history of present illness. Gastrointestinal: Review of systems noncontributory beyond history of present illness. Constitutional: Review of systems noncontributory beyond history of present illness. Remainder of review of systems noncontributory beyond history of present illness with 14 total systems reviewed. PHYSICAL EXAMINATION: General: This is a somewhat drowsy, morbidly obese, middle-aged female in no distress. Vital Signs: Blood pressure 132/87, heart rate 70 and regular. Oxygen saturation 100% on room air. HEENT: Extraocular muscles appear intact. Mucous membranes are moist. Neck: Supple without jugular venous distention. There are no carotid bruits. Chest: Clear to auscultation. Cardiac: Exam reveals a regular rate and rhythm without appreciable murmur or gallop. Abdomen: Soft, nontender. Bowel sounds are normal. Extremities: Without edema with chronic venous stasis changes evident. Neurologic: Exam reveals her to be alert and fully oriented. Speech is fluent. She moves all 4 extremities equally well. Skin: Warm and dry. Psych: Exam reveals mood to be appropriate. DIAGNOSTIC STUDIES: ECG demonstrates sinus rhythm, first-degree AV block. Left axis deviation, consider left anterior fascicular block, nonspecific interventricular conduction abnormality and delayed precordial R-wave progression, cannot exclude anterior infarct of undetermined age. LABORATORY DATA: Initial CPK 52, follow-up CPK 46. Initial troponin 0.2. Followup troponin 0.3. cc: MD Yared Randall MD
--- NOTE | 2017-04-05 16:10 | CONSULTATION ---
DATE OF CONSULTATION: 04/05/2017 NEPHROLOGY CONSULTATION: REASON FOR CONSULTATION: Help with ESRD management. HISTORY OF PRESENT ILLNESS: Ms. Cates is a 51-year-old white female who has end-stage kidney disease secondary to diabetes. She has known coronary disease and has been evaluated earlier this year and relegated to medical management because of her overall status. She has coronary disease, as well as aortic valve stenosis. She came to the emergency room because of chest pain that lasted for several hours. It was associated with headache, did not radiate. No diaphoresis. Some nausea. Pain eventually resolved in the emergency room after aggressive treatment with nitrates and aspirin and morphine. She states she had a shot of morphine earlier today. No further pain. She missed a dialysis treatment. PAST MEDICAL HISTORY: 1. Diabetes. 2. Hypertension. 3. ESRD. 4. Peripheral vascular disease with dry gangrene left thumb. 5. Hyperlipidemia. 6. Obesity. 7. Reflux. 8. Poor dialysis compliance has been somewhat improved in the last 6 months. HOME MEDICATIONS: Include trazodone, pregabalin, quetiapine, clopidogrel, folate, atorvastatin, loratadine, duloxetine, insulin, famotidine, clonidine, isosorbide, hydrocodone, amlodipine.Allergies: Rizatriptan, ciprofloxacin, sulfa, ondansetron. Social History: She does not smoke or use alcohol. She is and lives with her in the [facility]. FAMILY HISTORY: Positive for coronary disease, diabetes, hypertension, hyperlipidemia. REVIEW OF SYSTEMS: Otherwise noncontributory. PHYSICAL EXAMINATION: Vital Signs: Blood pressure 155/90, heart rate 79, respiration 12, afebrile. Generally: She is a middle-aged woman, in no acute distress. Skin: Warm and dry. Conjunctivae are pink. Pupils are equal. Oropharynx is dry. Dentition normal. Neck: Supple. Trachea is midline. No jugular venous distention. Heart: Regular with a gallop and soft murmur. Lungs: Have equal breath sounds. No crackles or wheezes. No accessory muscle use or retractions. Abdomen: Soft, nontender. Normal bowel sounds. No organomegaly or masses or bruits. Extremities: Have 1+ edema. No clubbing or cyanosis. Dry gangrene on the left thumb. IMPRESSION: 1. Chest pain. Defer to Cardiology and the primary team. 2. Chronic volume overload. She had dialysis today with 4 L ultrafiltration volume. 3. Electrolytes/acid base in target. 4. Anemia in target. 5. Hypertension. Acceptable. cc: MD Yared Erwin MD
[2017-04-05] MEDS: SANTYL OINT TOP SCH (16:34)
--- NOTE | 2017-04-05 18:32 | PROGRESS NOTE ---
DATE: 04/05/2017 SUBJECTIVELY: Ms. Cates is doing fair. 51-year-old female admitted with chest pain, multiple risk factors. When I evaluated patient the patient was sleeping that time she denied any chest pain. Patient admission history, physical, cardiology consult and nephrology consult reviewed. Admission lab data noted. I evaluated the patient. OBJECTIVE: Lungs: Bibasilar crepitation. Heart: 2-3/6 systolic murmur at aortic area. Abdomen: Soft, nontender. Bowel sounds present Extremities: No cyanosis, clubbing. No acute DVT. Bilateral leg swelling. TOOL ROOM GEAR MACHINE OPERATOR: Alert, awake, able to move all 4 limbs. CONSIDERATION: Chest pain, elevated troponin most likely due to renal failure, end-stage renal disease, hypertension, hyperlipidemia Patient's labs and medication noted. Will continue current treatment and close observation. cc: Yared Elizondo MD
[2017-04-05] MEDS: LIPITOR PO SCH (21:49)
[2017-04-05] MEDS: NORCO-7.5 PO PRN (21:49)
[2017-04-05] MEDS: SEROQUEL PO SCH (21:49)
[2017-04-05] MEDS: DESYREL PO SCH (21:49)
[2017-04-05] MEDS: LANTUS SUBQ SCH (22:31)
[2017-04-06] MEDS: HUMALOG SUBQ SCH ×6 (01:19→21:25)
[2017-04-06 05:09] LABS: MANUAL DIFF NEEDED? NO
[2017-04-06 05:15] LABS: BASO% 0.3 % (0.0-0.8); EOS# 0.28 X1000 (0.0-0.7); EOS% 4.1 % (0.0-10.0); HEMOGLOBIN 11.2 g/dL (12.0-16.0); LYMPH# 1.59 X1000 (1.2-3.4); LYMPH% 23.4 % (20.5-51.1); MCH 30.8 PG (27-31); MCHC 33.9 g/dL (33-37); MCV 90.7 FL (81-99); MONO# 1.02 X1000 (0.11-0.59); NEUT% 57.2 % (42.2-75.2); PLT 151 X1000 (130-400); RBC 3.64 XMIL (4.2-5.4)
[2017-04-06] MEDS: HEPARIN SUBQ SCH ×3 (05:19→21:25)
[2017-04-06] MEDS: PROTONIX IV SCH (05:19)
[2017-04-06 05:40] LABS: ALBUMIN 3.2 g/dL (3.5-5.0); CALCIUM 9.9 mg/dL (8.8-10.2); TOTAL BILIRUBIN 0.3 mg/dL (0.20-1.00); TOTAL PROTEIN 7.4 g/dL (6.3-8.3)
--- NOTE | 2017-04-06 07:20 | PROGRESS NOTE ---
DATE: 04/06/2017 SUBJECTIVE: Ms. Cates was admitted with chest pain, with typical features, multiple risk factors. The patient had elevated troponin evaluated by psychodramatist. Her total CPK was normal. IMPRESSION: Atypical chest pain. Her EKG noted. Patient denied any chest pain. No unusual shortness of breath. No high-grade fever or chills. The patient had nonhealing wound on the left thumb. The patient is going to the wound clinic. The patient is not making urine. Her reflux symptoms are doing fair. Admission history physical, cardiology consult noted. OBJECTIVE: Vital Signs: Vital signs reviewed. Neck: Supple. No JVD. Lungs: Bibasilar crepitation. Heart: A 2-3/6 systolic murmur at the aortic area. Abdomen: Soft, globular. Bowel sounds present. Patient does have a dressed wound on the left thumb. HARDWARE PRESS OPERATOR: Alert, awake, able to move all 4 limbs. CONSIDERATION: 1. Chest pain. CTA of the pulmonary artery results reviewed. 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 Home And Family Living Professor following patient with us. 2. Stable small nodule of the pancreatic body. 3. Severe coronary artery disease. Plan is to treat patient medically. 4. End-stage renal disease, on hemodialysis. 5. Hypertension. 6. Hyperlipidemia. 7. Diabetes mellitus. LAB DATA: Done today was noted. I am going to check her troponin. Continue rest of the treatment. Close observation. As recommended by psychodramatist, if clinical condition permits, we will plan discharging patient home today. cc: Yared Elizondo MD
[2017-04-06 07:27] LABS: ALBUMIN 3.3 g/dL (3.5-5.0); CALCIUM 9.5 mg/dL (8.8-10.2); TOTAL BILIRUBIN 0.29 mg/dL (0.20-1.00); TOTAL PROTEIN 7.5 g/dL (6.3-8.3)
[2017-04-06] MEDS: NORCO-7.5 PO PRN (07:50)
[2017-04-06] MEDS: NEPHROCAPS PO SCH (08:07)
[2017-04-06] MEDS: NORVASC PO SCH (08:07)
[2017-04-06] MEDS: PLAVIX PO SCH (08:07)
[2017-04-06] MEDS: ASPIRIN PO SCH (08:07)
[2017-04-06] MEDS: CATAPRES PO SCH ×2 (08:07→21:26)
[2017-04-06] MEDS: IMDUR PO SCH (08:07)
[2017-04-06] MEDS: CYMBALTA PO SCH (08:07)
[2017-04-06] MEDS: PEPCID PO SCH ×2 (08:07→21:24)
[2017-04-06] MEDS: LYRICA PO SCH ×2 (08:08→21:24)
[2017-04-06] MEDS: SANTYL OINT TOP SCH (08:08)
[2017-04-06] MEDS ORDERED: NS 2,000 ML ONE (09:48)
[2017-04-06] MEDS ORDERED: HEPARIN ONE ×3 (09:48→13:00)
[2017-04-06] MEDS ORDERED: NS 2,000 ML MISC PRN (12:29)
[2017-04-06] MEDS ORDERED: TIGHT: 0.2 ML/HR MISC PRN (12:29)
[2017-04-06] MEDS ORDERED: HEPARIN IV PRN (12:29)
[2017-04-06] MEDS ORDERED: NS 1,000 ML ONE (12:52)
--- NOTE | 2017-04-06 15:25 | PROGRESS NOTE ---
DATE: 04/06/2017 SUBJECTIVE: The patient continues without further chest discomfort. She denies dyspnea on room air. OBJECTIVE: Vital Signs: Blood pressure 100/60, heart rate 80 and regular, oxygen saturation 97% on room air. neck: There is no significant jugular venous distention. Chest: Clear to auscultation. Cardiac: A regular rate and rhythm, without appreciable murmur or gallop. extremities: There is no evidence of peripheral edema. LABORATORY DATA: Includes initial CPK 52, followup CPK 36. Troponin 0.2, followup troponin 0.38, and further followup troponin 0.34. IMPRESSION: 1. Severe atherosclerotic coronary disease and moderate aortic stenosis. 2. End-stage renal disease, requiring chronic hemodialysis. 3. Diabetes mellitus, requiring insulin. 4. Obesity. 5. Hyperlipidemia. 6. Gastroesophageal reflux. RECOMMENDATION: 1. Continue current medical regimen for angina/coronary atherosclerosis. 2. Reasonable for the patient to be discharged to follow up in the next few weeks with her regular equities analyst, Dr. Clarence Tolbert. cc: MD Yared Randall MD
--- NOTE | 2017-04-06 17:24 | PROGRESS NOTE ---
DATE: 04/06/2017 SUBJECTIVE: Patient is sitting up in bed. She has refused to undergo dialysis today. She believes that she is supposed to go to a Tuesday, , Tuesday schedule and that she would be discharged today and wants to have treatment as an outpatient. OBJECTIVE: Vital Signs: Temperature 98.4 degrees, pulse 83, respiratory rate 19, blood pressure 95/56. Intake 360 mL. Output 4.6 L. General: Middle-aged female, resting in bed. Awake and alert. No acute distress. HEENT: Normocephalic, atraumatic. Oral mucosa moist. Neck: Supple. Trachea midline. No JVD. Cardiovascular: Regular rate and rhythm. She has a murmur. Pulmonary: Equal excursion. She is clear bilaterally. Abdomen: Soft with positive bowel sounds. : Not inspected. Minimal void with hemodialysis assist. Extremities: Trace pretibial edema. No clubbing or cyanosis. She does have her left hand bandaged with a large gauze dressing. Integumentary: Skin is warm and dry otherwise. LABORATORY DATA: WBC of 6.8, hemoglobin 11.2, sodium 136, potassium 4, CO2 of 26, BUN 50, creatinine 7.7, calcium 9.5, albumin 3.3. ASSESSMENT AND PLAN: 1. End-stage renal disease management. We were able to remove a little over 4 L yesterday with dialysis. We were going to go ahead and dialyze again today for routine treatment. However, the patient refused dialysis today. She was taken back to her room. The dialysis nurse did go back up and attempt to persuade her to go ahead and undergo dialysis, but the patient again refused. If she remains in the hospital, we will plan to dialyze her tomorrow. 2. Electrolytes, acid-base balance, anemia stable. 3. Chest pain. Followed by primary and Cardiology. 4. Disposition. I did talk with the patient regarding her dialysis schedule, and right now it appears that she still is on a Tuesday, Tuesday, Tuesday schedule in the outpatient clinic. This was the information we were given today by the outpatient clinic. I told the patient to call them to verify that information, so that if she were discharged she can make appropriate plans for her outpatient dialysis. Dictated by TOBIN Perez for Gerardo Ma MD Data reviewed, discussed with Dannielle Ruby on 04/06/17. I agree with the above assessment and plan of care. cc: MD Yared Erwin MD [facility]ITAL[facility]
[2017-04-06] MEDS: LANTUS SUBQ SCH (21:24)
[2017-04-06] MEDS: LIPITOR PO SCH (21:24)
[2017-04-06] MEDS: SEROQUEL PO SCH (21:24)
[2017-04-06] MEDS: DESYREL PO SCH (21:25)
[2017-04-07] MEDS: NORCO-7.5 PO PRN (00:03)
[2017-04-07] MEDS: HUMALOG SUBQ SCH ×3 (00:05→08:39)
[2017-04-07] MEDS: HEPARIN SUBQ SCH (05:55)
[2017-04-07] MEDS: PROTONIX IV SCH (05:55)
[2017-04-07] MEDS ORDERED: NS 2,000 ML MISC PRN (07:06)
[2017-04-07] MEDS ORDERED: TIGHT: 0.2 ML/HR MISC PRN (07:06)
[2017-04-07] MEDS ORDERED: HEPARIN IV PRN (07:06)
[2017-04-07] MEDS ORDERED: HEPARIN ONE (07:22)
[2017-04-07] MEDS ORDERED: NS 2,000 ML ONE (07:22)
--- NOTE | 2017-04-07 13:34 | PROGRESS NOTE ---
DATE: 04/07/2017 SUBJECTIVE: She is on dialysis. No further chest pain. No shortness of breath. OBJECTIVE: Vital Signs: Blood pressure 134/87, heart rate 74, respiration 18, afebrile. General: She is in no acute distress. Skin: Warm and dry. HEENT: Conjunctivae are pink. Neck: Neck veins are not appreciated. Heart: Regular with a gallop. Lungs: Have equal breath sounds. No crackles. Abdomen: Soft, nontender. Bowel sounds present. Extremities: Have 1+ edema. No clubbing or cyanosis. LABORATORY DATA: None today. IMPRESSION: 1. End-stage kidney disease. Continue dialysis goal of 2.5 L as her blood pressure allows. 2. Anemia in target. 3. Chest pain. Stable. cc: MD Yared Erwin MD
[2017-04-07] MEDS: NEPHROCAPS PO SCH (13:51)
[2017-04-07] MEDS: PEPCID PO SCH (13:52)
[2017-04-07] MEDS: LYRICA PO SCH (13:52)
[2017-04-07] MEDS: IMDUR PO SCH (13:52)
[2017-04-07] MEDS: CYMBALTA PO SCH (13:52)
[2017-04-07] MEDS: PLAVIX PO SCH (13:52)
[2017-04-07] MEDS: CATAPRES PO SCH (13:52)
[2017-04-07] MEDS: NORVASC PO SCH (13:52)
[2017-04-07] MEDS: ASPIRIN PO SCH (13:52)
[2017-04-07 14:25] VITALS: BP 134/64
== END 2017-04-07 14:20 | disposition home or self-care (01) ==
LOC: ED 21:31 → 3S 04-05 01:16 → SUATTDRO 04-05 01:16
PROVIDERS: ADMIT Internal Medicine; ATTEND Internal Medicine

== ENCOUNTER 2017-04-19 23:46 | Inpatient (IN) ==
[2017-04-20] MEDS ORDERED: ASPIRIN PO STA (00:11)
[2017-04-20] MEDS ORDERED: PHENERGAN IV ONE (00:56)
[2017-04-20] MEDS ORDERED: MORPHINE IV ONE (00:56)
[2017-04-20] MEDS ORDERED: SODIUM CHLORIDE 0.9% INJ ONE (00:56)
[2017-04-20] MEDS ORDERED: COMPAZINE IV ONE (00:59)
[2017-04-20] MEDS ORDERED: COMPAZINE ONE (01:52)
[2017-04-20 03:16] LABS: MANUAL DIFF NEEDED? NO
[2017-04-20 03:37] LABS: CHLORIDE 85 mmol/L (98-107); POTASSIUM 4.9 mmol/L (3.5-5.1); SODIUM 131 mmol/L (136-145); TCO2 21 mmol/L (25-35)
[2017-04-20 03:38] LABS: AGAP 25; BUN 67 mg/dL (8-22)
[2017-04-20 03:39] LABS: ALBUMIN 3.5 g/dL (3.5-5.0); ALKALINE PHOSPHATASE 113 U/L (32-104); CALCIUM 9.9 mg/dL (8.8-10.2); COSMO 301; GOT 9 U/L (10-30); TOTAL BILIRUBIN 0.29 mg/dL (0.20-1.00); TOTAL PROTEIN 8.2 g/dL (6.3-8.3)
[2017-04-20 03:40] LABS: CK PROFILE 58 U/L (24-173); GPT 9 U/L (10-36); MAGNESIUM 1.8 mg/dL (1.5-2.7)
[2017-04-20 04:03] LABS: PROTIME 10.5 Seconds (9.2-11.7); PTT 22.7 Seconds (22.0-36.0)
--- NOTE | 2017-04-20 04:06 | ED EKG INTERP ---
This chart was entered by Prisca Gusman Scribe, acting as scribe for Chai Jacques MD. EKG Interpretation - EKG Time of EKG reading by physician:: 00:04 EKG Read and Signed by:: Chai Jacques EKG Interpretation (*Must complete 3 of following elements*): Abnormal Rate: 77 Rhythm: Sinus Rhythm with 1st degree AV Block [place]: left (deviation) Comments: Inferior and Anterior Infracct, Abnormal ECG Attestation - Physician/ JORDAN Attestation Patient care was provided by Advanced Practice Provider:: No The physician spent face to face time with patient:: Yes Advanced Practice Provider documentation review:: Supervising physician onsite and consulted in the evaluation and care of this patient. The physician did have a face to face encounter with the patient. This chart was documented by the indicated scribe, (Prisca Gusman Scribe) and accurately reflects the services I performed and decisions made by me, Chai Jacques MD, as attested by the provider's signature.
--- NOTE | 2017-04-20 04:06 | PROVIDER DOCUMENTATION ---
This chart was entered by Prisca Gusman Scribe, acting as scribe for Chai Jacques MD. HPI-Chest Pain - General Chief Complaint: Shortness of Breath Stated Complaint: SOB/CHEST PAIN Time Seen by Provider: 04/20/17 00:15 Source: patient Allergies/Adverse Reactions: Patient Allergies Allergy/AdvReac Type Severity Reaction Status Date / Time rizatriptan benzoate * Allergy Mild SHORTNESS Verified 04/05/17 00:45 [From Maxalt] OF BREATH ciprofloxacin HCl * Allergy Unknown Unknown Verified 04/05/17 00:45 [From Cipro] Sulfa (Sulfonamide Allergy Unknown Unknown Verified 04/05/17 00:45 Antibiotics) ondansetron HCl * AdvReac Mild HEADACHE Verified 04/05/17 00:45 [From Zofran] Home Medications: Home Medication List Medication Instructions Recorded Confirmed Last Taken Type Trazodone [Desyrel] 50 mg PO QHS 09/30/13 04/05/17 04/03/17 20:00 History Pregabalin [Lyrica] 300 mg PO BID 10/02/15 04/05/17 04/04/17 08:00 History Cinnamon Bark [Cinnamon] 1,000 mg PO BID 04/08/16 04/05/17 04/04/17 08:00 History Clopidogrel Bisulfate [Plavix] 75 mg PO QAM 04/08/16 04/05/17 04/04/17 08:00 History Folic Acid/Vitamin B Comp W-C 0.8 mg PO QAM 04/08/16 04/05/17 04/04/17 08:00 History [Folic Acid Xtra Caplet] Quetiapine Fumarate [Seroquel] 100 mg PO HS 04/08/16 04/05/17 04/03/17 20:00 History ATORVAstatin [Lipitor] 40 mg PO QHS 09/17/16 04/05/17 04/03/17 20:00 History Loratadine [Claritin] 10 mg PO DAILY PRN PRN #90 capsule 12/06/16 04/05/17 Unknown Rx Clonidine [Catapres] 0.2 mg PO BID 01/23/17 04/05/17 04/04/17 08:00 History Duloxetine [Cymbalta] 60 mg PO QAM 01/23/17 04/05/17 04/04/17 08:00 History Famotidine [Pepcid] 20 mg PO BID 01/23/17 04/05/17 04/04/17 08:00 History Insulin Glargine [Lantus] 30 unit SUBQ QHS 01/23/17 04/05/17 04/03/17 20:00 History Insulin Lispro [Humalog] 10 unit SQ DIRECTED 01/23/17 04/05/17 04/03/17 History Isosorbide Mononitrate E.r. [Imdur] 90 mg PO QAM 01/23/17 04/05/17 04/04/17 08: 00 History Hydrocodone/APAP 7.5 mg/325 mg 1 each PO Q6H PRN PRN #0 tablet 01/26/1704/04/17 18:00 Rx [[place]-7.5] Amlodipine [Norvasc] 10 mg PO QAM 04/05/17 04/05/17 04/04/17 08:00 History Acetaminophen [Tylenol] 650 mg PO Q6H PRN PRN #0 tablet 04/07/17 Unknown Rx Aspirin EC 81 mg PO DAILY #30 tablet 04/07/17 Unknown Rx - History of Present Illness-CP Nature of Presenting Problem: 51 Y/O F presents to ED with Shortness of Breath. Pt has MWF dialysis, and woke up yesterday with N/V x3. Pt states that she didn't go due to the N/V. PT C/O of chest pressure and SOB worsening with laying down, better with sitting up. Denies other symptoms. Location: reports: central Chest Pain Radiation: reports: no radiation Quality of Pain: reports: tightness Severity in ED: moderate Onset/Duration: this evening Timing: still present Context/Activities at Onset: reports: none Modifying Factors: improves with: other (sitting up). worse with: lying down Associated Symptoms: reports: nausea, shortness of breath, vomiting. denies: abdominal pain, fever/chills, heartburn, swelling/lump in chest Nitro Today/Relief: no nitro taken today Aspirin Treatment Today: 325 mg x 1, provided by ED Review of Systems - Adult - REVIEW OF SYSTEMS - ADULT Constitutional: denies: chills, fever Eyes: reports: no symptoms reported Ears, Nose, Mouth & Throat: reports: no symptoms reported Cardiovascular: reports: chest pain Respiratory: reports: shortness of breath. denies: cough Gastrointestinal: reports: nausea, vomiting Genitourinary: reports: no symptoms reported Musculoskeletal: reports: no symptoms reported Integumentary: reports: no symptoms reported Neurological: reports: no symptoms reported Psychiatric: reports: no symptoms reported Endocrine: reports: no symptoms reported Hematologic/Lymphatic: reports: no symptoms reported Allergic/Immunologic: reports: no symptoms reported All Other Systems: Reviewed and Negative Past History - Adult - PAST MEDICAL HISTORY-ADULT Review of Records: reports: Old Records Reviewed, Nursing Assessment Review, Medications Reviewed, Social history reviewed & non-contributory. Major Childhood Illnesses: reports: denies history Cardiovascular: reports: CHF, HTN, murmur Respiratory: reports: asthma, COPD Gastrointestinal: reports: GERD Obstetrical/Gynecological: reports: denies history Genitourinary: reports: dialysis (TTS), ESRD Musculoskeletal: reports: arthritis Neurological: reports: speech difficulty Psychiatric: reports: depression Endocrine/Immune: reports: Diabetes Other Conditions: reports: denies history - PRIOR SURGERIES/PROCEDURES Surgical/Procedure History: reports: appendectomy, cholecystectomy, hysterectomy , indwelling device (AV fist left arm), orthopedic (extremity) - PRIOR HOSPITALIZATIONS Prior Hospitalizations: reports: none - IMMUNIZATION STATUS Childhood Immunizations: See Nurse Assessment Flu Vaccine: See Nurse Assessment - FAMILY HISTORY Family History: reviewed, not pertinent - SOCIAL HISTORY Smoking: non-smoker Substance Use: none/never Alcohol Use Frequency: never Living Situation: family Physical Exam-General - CONSTITUTIONAL General Appearance: alert, no apparent distress - EYES Eyes: PERRL/EOMI, pink conjunctivae - HEAD, EARS, NOSE, MOUTH & THROAT HENMT: normocephalic/atraumatic, moist mucous membranes, normal ENT inspection, TMs normal, pharynx normal - NECK Neck: non-tender, full range of motion, supple, normal inspection - LYMPHATIC Lymphatic: no adenopathy - MUSCULOSKELETAL Back Exam: normal inspection, no CVA tenderness, no vertebral tenderness Extremity: pedal edema (2+ to knee) - SKIN Integumentary: normal color, normal turgor - NEUROLOGIC Neurologic: grossly normal - PSYCHIATRIC Psych/Mental Status: normal mood/affect, normal thought content, normal thought process, oriented x 3 Progress - PLAN OF CARE/RESULTS Progress/Plan/Lab Results: Vital Signs - 8 hr 04/20/17 00:09 Temperature 97.6 F Pulse Rate 75 Respiratory Rate 18 Blood Pressure 157/89 O2 Sat by Pulse Oximetry 98 Orders Category Date Time Status Cardiac Monitoring DIRECTED Care 04/20/17 00:11 Active Saline Loc NOW Care 04/20/17 00:11 Active CHEST-2 VIEWS [RAD] Stat Exams 04/20/17 00:11 Taken CBC WITH ELECTRONIC DIFF [HEME] Stat Lab 04/20/17 00:58 Results CK PROFILE [SP CHEM] Stat Lab 04/20/17 00:58 Received COMPREHENSIVE METABOLIC PANEL [CHEM] Stat Lab 04/20/17 00:58 Received D-DIMER [CHEM] Stat Lab 04/20/17 00:58 Received MAGNESIUM [CHEM] Stat Lab 04/20/17 00:58 Received PRO B-NATRIURETIC PEPTIDE Stat Lab 04/20/17 00:58 Received PROTIME WITH INR [COAG] Stat Lab 04/20/17 00:58 Received PTT [COAG] Stat Lab 04/20/17 00:58 Received TROPONIN T Stat Lab 04/20/17 00:58 Received Aspirin Med 04/20/17 00:11 Discontinued 325 mg PO STAT STA Morphine Med 04/20/17 00:56 Discontinued 4 mg IV NOW ONE Promethazine [Phenergan] Med 04/20/17 00:56 Discontinued 25 mg IV NOW ONE Sodium Chloride 0.9% Med 04/20/17 00:56 Discontinued 10 ml INJ NOW ONE EKG [EKG] Stat Ther 04/19/17 23:59 Ordered Result Diagrams: 04/20/17 00:58 - XRAY 1 XRAY Study: Chest Comparison with other Films: changes noted (03/20) XRAY Interpretation: unchanged cardiomegaly, increased pulmonary vascular congestion Departure - Departure Date of Disposition Decision: 04/20/17 Time of Disposition Decision: 03:35 DIAGNOSIS: ESRD (end stage renal disease) on dialysis Fluid overload Qualifiers: Hypervolemia type: unspecified Qualified Code(s): E87.70 - Fluid overload, unspecified Disposition: ADMITTED INPATIENT 09 Certified Medical Emergency: Emergent Condition: Fair Referrals and Follow-Ups: Yared Elizondo MD [Primary Care Provider] - - Critical Care Note This patient required my direct & personal management of CC.: No Attestation - Physician/ JORDAN Attestation Patient care was provided by Advanced Practice Provider:: No The physician spent face to face time with patient:: Yes Advanced Practice Provider documentation review:: Supervising physician onsite and consulted in the evaluation and care of this patient. The physician did have a face to face encounter with the patient. This chart was documented by the indicated scribe, (Prisca Gusman Scribe) and accurately reflects the services I performed and decisions made by me, Chai Jacques MD, as attested by the provider's signature.
[2017-04-20 04:16] LABS: BASO% 0.3 % (0.0-0.8); EOS# 0.23 X1000 (0.0-0.7); EOS% 3.1 % (0.0-10.0); HEMATOCRIT 29.9 % (37.0-47.0); HEMOGLOBIN 10.1 g/dL (12.0-16.0); IMM GRAN# 0.04 X1000 (0.0-0.04); IMM GRAN% 0.5 % (0.0-0.5); LYMPH# 1.05 X1000 (1.2-3.4); LYMPH% 14.2 % (20.5-51.1); MCH 30.3 PG (27-31); MCHC 33.8 g/dL (33-37); MCV 89.8 FL (81-99); MONO# 0.91 X1000 (0.11-0.59); MONO% 12.3 % (1.7-9.3); NEUT% 69.6 % (42.2-75.2); PLT 137 X1000 (130-400); RBC 3.33 XMIL (4.2-5.4)
--- NOTE | 2017-04-20 04:38 | HISTORY AND PHYSICAL ---
PRIMARY CARE PHYSICIAN: Yared Elizondo MD REASON FOR ADMISSION: Shortness of breath today and 2 days' history of abdominal pain and nausea. Ms. Jaclyn Cates is a 51-year-old lady with past medical history of end-stage renal disease, type 2 diabetes, hypertension, hyperlipidemia, prior CAD, who comes in complaining off a 2-day history of vague intermittent crampy lower abdominal pain without any without any diarrhea or constipation. She denies any fever or chills. She did say she got up later that day. She developed subsequent nausea with 1 episode of nonbilious or bloody vomitus. As a result of this, she did not go for hemodialysis which was scheduled on Tuesday, 2 days ago. The next day, yesterday, she did not follow up again for dialysis. Then later that evening, she started complaining of shortness of breath, occasional cough and noticed that her lower extremities were swelling and her abdomen was slightly swollen. No chest pain. No palpitations or lightheadedness. Positive complaints of orthopnea and PND overnight. These symptoms were the reason why the patient came to our facility. REVIEW OF SYSTEMS: Patient is anuric and denies any genitourinary complaints. No neurological complaints. By the way, patient is drowsy from the effects of recently administered morphine. Thus, my history is very limited. I had to keep continually waking the patient up to get the little history I could. She is oriented to person, place, and time, however. REVIEW OF SYSTEMS: Very limited for obvious reasons. Twelve-system review is negative grossly speaking. Positive findings were noted in the HPI. ALLERGIES: Maxalt and Zofran. HOME MEDICATIONS: List not officially reconciled. SOCIAL HISTORY: Lives with her . Does not smoke, drink, or use illicit drugs. SURGICAL HISTORY: Hysterectomy, cholecystectomy, appendectomy. Allergies: Maxalt and Zofran. Other allergies including ciprofloxacin and sulfur. FAMILY HISTORY: Negative for coronary artery disease but positive for diabetes and heart disease. DIAGNOSTIC DATA: White count 6000, hemoglobin 10 and hematocrit 30, platelets 136,000. ProBNP 35,000, troponin 0.228. BUN 67, creatinine 9.9, glucose 442, D-dimer 2.2. EKG showing poor R-wave progression with left axis deviation, acute inferior leads with Q-waves. First-degree AV block. Chest x-ray showed [id number] pulmonary congestion and borderline cardiomegaly. PHYSICAL EXAMINATION: GENERAL: Morbidly obese, middle-aged, woman who is chronically ill looking and appears older than stated age. VITAL SIGNS: Blood pressure is 157/89, heart rate 75, respirations 18, temperature is 97.6 with an O2 saturation of 98%. GENERAL: She is alert but very drowsy and lethargic from pain medication. The patient is very drowsy but oriented to person, place, and time with some guidance with normal mood and affect. HEENT: Head is normocephalic. Eyes, LATOYA, EOMI. She is anicteric and mildly pale. ENT and oropharyngeal exam shows dry oral mucosa, but no oropharyngeal exudates. No central cyanosis. NECK: Short and thick. I cannot visualize any JVD. No hepatojugular reflux. No thyromegaly. No bruit. CHEST: The patient has bibasilar crepitations. No wheezes. Decreased entry in the bases. CARDIOVASCULAR: First and second heart sounds heard. No gallops. There is 3/6 ejection systolic murmur noted. Rhythm is regular. ABDOMEN: Protuberant, soft, with no focal areas of tenderness. No mass or organomegaly. Bowel sounds hypoactive. RECTAL: Deferred. EXTREMITIES: Patient has 2+ pitting edema up to the knee. Pulses distally in all extremities. Good volume. Symmetrical. No clubbing or peripheral cyanosis. NEUROLOGIC: Focal deficits. SKIN: Grossly intact with no focal areas of erythema, breakdown or rash. Muscular exam is grossly normal. ASSESSMENT: 1. Acute pulmonary edema secondary to poor compliance of hemodialysis. 2. End-stage kidney disease. 3. Coronary artery disease. 4. Hypertension. 5. Type 2 diabetes, poor control. 6. Morbid obesity. 7. Hyperlipidemia. PLAN: At this time, we will consult Dr. Ma for immediate dialysis and hopefully if patient feels better, she may be discharged depending on how she responds to this treatment. Unfortunately, patient is anuric and there is no role for IV diuretics. We will decrease venous return by giving p.r.n. morphine and start patient on nitroglycerin paste. We will also give patient DuoNebs to treat her symptomatically. Home medications have not been reconciled but this needs to be reconciled later today. Orders: Due to the fact that the electronic medical record system was down and the fact that the patient was very drowsy, history was somewhat limited. Also, the rest of the orders were handwritten and will need to be reviewed and inputted into the computer. cc: Olegario Watkins MD
[2017-04-20] MEDS ORDERED: TYLENOL PO PRN ×2 (04:53→06:31)
--- NOTE | 2017-04-20 05:19 | EKG Report ---
Test Performed on : 04/20/2017 00:04:24 AM Test Reason : SOB Blood Pressure : / mmHG Vent. Rate : 077 BPM Atrial Rate : 077 BPM P-R Int : 326 ms QRS Dur : 116 ms QT Int : 420 ms P-R-T Axes : 060 -56 086 degrees QTc Int : 475 ms Sinus rhythm. with 1st degree AV block. Left axis deviation Inferior infarct , age undetermined Anterior infarct (cited on or before 05-APR-2017) Abnormal ECG When compared with ECG of 05-APR-2017 06:26, QRS duration has decreased Unconfirmed Result
[2017-04-20] MEDS ORDERED: MORPHINE IV PRN (06:29)
[2017-04-20] MEDS ORDERED: PHENERGAN IV PRN (06:30)
[2017-04-20] MEDS ORDERED: SODIUM CHLORIDE 0.9% INJ PRN (06:30)
[2017-04-20] MEDS: NITROGLYCERIN TD SCH ×3 (06:48→21:15)
--- NOTE | 2017-04-20 07:09 | Diag Imaging Result Doc PS360 ---
EXAM: CHEST-2 VIEWS HISTORY: CP TECHNIQUE: AP upright sitting chest with lateral COMMENT: The central pulmonary vascularity is prominent and the left ventricle appears to be enlarged. The appearance of the chest has not changed significantly since 03/20/2017. IMPRESSION: Stable chest. Electronically signed by Petros Olsen 04/20/2017 7:07 AM
[2017-04-20] MEDS: DUONEB (A & A) INH SCH ×5 (07:30→23:25)
[2017-04-20 07:56] LABS: CALCIUM 9.9 mg/dL (8.8-10.2); POTASSIUM 5.5 mmol/L (3.5-5.1)
[2017-04-20] MEDS: ASPIRIN EC PO SCH (08:20)
[2017-04-20] MEDS: HEPARIN SUBQ SCH ×2 (08:21→21:16)
[2017-04-20] MEDS: NORVASC PO SCH (08:21)
[2017-04-20] MEDS: PLAVIX PO SCH (08:21)
[2017-04-20] MEDS: PEPCID PO SCH ×2 (08:21→21:15)
[2017-04-20] MEDS: HUMALOG SUBQ SCH ×4 (08:35→21:16)
[2017-04-20] MEDS ORDERED: NS 2,000 ML ONE (08:52)
[2017-04-20] MEDS ORDERED: HEPARIN ONE (08:52)
[2017-04-20] MEDS ORDERED: HEPARIN IV PRN (09:54)
[2017-04-20] MEDS ORDERED: TIGHT: 0.2 ML/HR MISC PRN (09:54)
[2017-04-20] MEDS ORDERED: NS 2,000 ML MISC PRN (09:54)
[2017-04-20] MEDS ORDERED: LIPITOR PO SCH (21:00)
[2017-04-21] MEDS: DUONEB (A & A) INH SCH ×3 (03:35→11:48)
[2017-04-21] MEDS: NITROGLYCERIN TD SCH ×2 (03:47→09:00)
--- NOTE | 2017-04-21 05:30 | CONSULTATION ---
DATE OF CONSULTATION: 04/20/2017 Time seen 0900. REASON FOR ADMISSION: Increased work of breathing with abdominal pain associated with nausea and vomiting. REASON FOR CONSULT: End-stage renal disease with assistance with medical management. HISTORY OF PRESENT ILLNESS: Ms. Cates is a 51-year-old white female who is known to our outpatient services for end-stage renal disease with hemodialysis at the [facility] on Tuesday, Tuesday, and Tuesday. Patient had missed her Tuesday dialysis appointment secondary to having nausea and vomiting and too weak to get up and go to treatment. Her last dialysis was last Tuesday. Patient states that she does have problems with this noted in the past with frequent hospitalizations secondary to her gastroparesis. She denies any fever or chills. Positive for nausea, vomiting. No diarrhea. She thinks that she had some food poisoning from Tuesday into Tuesday. She continues with increased work of breathing. She states her chest pain has improved. No palpitations or lightheadedness. PAST MEDICAL HISTORY: End-stage renal disease with hemodialysis on Tuesday, Tuesday, Tuesday at the [facility]. She has a history of hypertension, diabetes mellitus type 2 , hyperlipidemia, coronary artery disease. She has a history of gastroparesis, recent infection to left hand followed by Dr. Wynn. She has anemia of chronic disease, obesity, reflux, osteodystrophy of chronic disease currently being treated per for peripheral vascular disease, with dry gangrene of left thumb on her last hospitalization. PREVIOUS SURGICAL HISTORY: She has an AV fistula to the left upper arm. This continues with positive thrill, previous tunnel catheters. She has had debridement of left thumb, previous colonoscopies, and EGD. The patient has a history of migraines, osteoarthritis , colon resection, gastritis. SURGICAL HISTORY: Patient has had a colon resection in the past. SOCIAL HISTORY: She is . She has no children. She has family including her mother and her sister, who are attentive to her care. She is a nonsmoker. Denies any alcohol or illicit drug use. FAMILY HISTORY: Positive for osteoporosis, COPD, hypertension, diabetes, hyperlipidemia, and hypertension. ALLERGIES: Listed as Maxalt and Zofran. MEDICATIONS: Not officially reconciled. REVIEW OF SYSTEMS: Times 10 with pertinent positives listed above in the HPI. PATIENT'S VITAL SIGNS: Blood pressure 149/94, heart rate 112, respirations 21, temperature of 97.6 degrees. Patient is currently on room air. Previous recorded saturations of 92%. She has had no intake and output. LABS: These were drawn at midnight and this a.m. Sodium 132, potassium 5.5, chloride is 86, CO2 22, BUN 71, creatinine 9.6, glucose 315, calcium 9.9. She has an elevated BNP greater than 35,000, albumin of 3.5. Positive troponin. D-dimer is noted at 2.20. PT 10.5 , INR 1, PTT 22.7. Patient has a white count 7.42, hemoglobin 10.1, hematocrit 29.9, with a platelet count of 137,000. Chest x-ray shows stable chest. PHYSICAL EXAMINATION: General: This is a 51-year-old white female. She is currently resting in a stretcher. She is in the emergency room. She denies any chest pain at this time. She appears chronically ill with no acute distress. Skin: Warm and dry. HEENT: Normocephalic, atraumatic. Conjunctivae pale. She has LATOYA. Mucous membranes moist. Neck: Supple. Trachea midline. Positive JVD with head of the bed elevated. Cardiovascular: Regular rate and rhythm. She has a soft systolic murmur. No gallop appreciated. Lungs: Clear to auscultation anteriorly. Equal excursion. She is on room air. Abdomen: Large, round, soft, nontender to light palpation. Genitourinary: Not inspected. Minimal void with dialysis assist. Extremities : She has trace pretibial edema. Otherwise, no clubbing and cyanosis. Integumentary: Patient has a left hand that is currently wrapped with Dr. Wynn following for dry gangrene. Neurological: Alert and oriented x3. ASSESSMENT AND PLAN: 1. End-stage renal disease. Patient is due for her routine dialysis treatment today. She is going to be admitted. She has missed her treatment this a.m. We will plan to dialyze today. We will place her on a 2 K bath. She is to dialyze for 3.5 hours. We will attempt to pull and challenge her dry weight secondary to fluid volume overload. 2. Fluid volume overload. Patient's BNP is elevated. She did have chest pain with some increased work of breathing again, with dialysis treatment to assist. 3. Electrolytes. These are stable with a mild hyperkalemia. Again, correction on dialysis. 4. Acidosis, correction on dialysis. 5. Anemia. This remains low but stable. 6. Dry gangrene to left hand. Again, this is followed by Dr. Wynn on an outpatient basis. 7. Chest pain which has resolved. 8. Increased work of breathing again secondary to fluid volume overload. I would to thank you for allowing us to follow with this patient. Dictated by TOBIN Medina for Gerardo Ma MD Patient seen, data reviewed, discussed with Mela Troncoso on 04/20/17. I agree with the above assessment and plan of care. cc: TOBIN Medina MD Bharat K. Vakharia, MD [facility] SYSTEM[facility]
[2017-04-21] MEDS: HUMALOG SUBQ SCH ×2 (06:34→11:56)
[2017-04-21 07:27] LABS: ALBUMIN 3.5 g/dL (3.5-5.0); CALCIUM 9.4 mg/dL (8.8-10.2); POTASSIUM 4.9 mmol/L (3.5-5.1)
[2017-04-21 08:17] VITALS: BP 134/82
[2017-04-21] MEDS: NORVASC PO SCH (08:59)
[2017-04-21] MEDS: PLAVIX PO SCH (09:00)
[2017-04-21] MEDS: HEPARIN SUBQ SCH (09:00)
[2017-04-21] MEDS: PEPCID PO SCH (09:00)
[2017-04-21] MEDS: ASPIRIN EC PO SCH (09:00)
--- NOTE | 2017-04-21 19:12 | PROGRESS NOTE ---
DATE: 04/21/2017 TIME SEEN: 0850. SUBJECTIVE: Ms. Cates is resting quietly in bed. Head of the bed is elevated. She is eating her breakfast. She states that she is going to be discharged home today. She denies any chest pain. No increased work of breathing. OBJECTIVE: Vital Signs: Temperature 97.9 degrees, blood pressure 134/82, heart rate 74, respirations are 18. She is on room air. Last recorded saturation 93%. She has had 360 in. She has had 5 L off on dialysis yesterday. Labs: Sodium 136, potassium 4.9, chloride 89, CO2 26, BUN 53, creatinine 7.6, glucose 155. Her anion gap was 21, calcium 9.4, phosphorus 9.5, albumin 3.5. Hemoglobin completed yesterday is 10.1. PHYSICAL EXAMINATION: General: This is a 51-year-old white female. She is currently resting in bed. She is in no acute distress. Skin: Warm and dry. HEENT: Normocephalic , atraumatic. Conjunctivae. She has LATOYA. Mucous membranes are moist. Neck: Supple. Trachea midline. No JVD. Cardiovascular: She is regular rate and rhythm. She has a soft systolic murmur. Slight gallop is noted. Lungs: Clear to auscultation anteriorly. Equal excursion on room air. Abdomen: Large, round, soft, nontender. Positive bowel sounds. Genitourinary : Not inspected. Minimal void with dialysis assist. Extremities: She has trace pretibial edema. No clubbing or cyanosis. Dressing to the left thumb secondary to dry gangrene. Followed by Dr. Wynn on an outpatient service. Neurological: She is alert and oriented x3. ASSESSMENT AND PLAN: 1. End-stage renal disease. Patient is due for her routine dialysis treatment in the a.m. No indications for intervention today. Patient has been instructed to go to her outpatient clinic per her prescription if discharged today. 2. Electrolytes and acid-base balance. These are improved. 3. Anemia. This remains stable. 4. Acidosis. This remains stable. 5. Dry gangrene. Patient continues to follow with Dr. Wynn on an outpatient basis. 6. Chest pain. This has resolved. 7. Increased work of breathing with fluid volume overload. This has resolved. I would like to thank you for allowing us to follow with this patient. Dictated by TOBIN Medina for Gerardo Ma MD Patient seen, data reviewed, discussed with Mela Troncoso on 04/21/17. I agree with the above assessment and plan of care. cc: TOBIN Medina MD Bharat K. Vakharia, MD [facility]ITAL[facility]
--- NOTE | 2017-04-22 09:55 | DISCHARGE SUMMARY ---
ADMISSION DATE: 04/20/2017 DISCHARGE DATE: 04/21/2017 FINAL DISCHARGE DIAGNOSES: 1. Fluid overload secondary to noncompliance to her dialysis. 2. End-stage renal disease. 3. Uncontrolled diabetes mellitus. 4. Hypertension. 5. Gastritis and gastroparesis. 6. Coronary artery disease. 7. Aortic stenosis. 8. Nonhealing ulcer on the thumb. 9. Hyperlipidemia. HISTORY: Ms. Cates is a 51-year-old white female patient. She missed her dialysis on Tuesday. Last dialysis was last Tuesday. The patient was feeling increasing shortness of breath and increased work of breathing. She also had some abdominal pain. Evaluated in the ER and found to have fluid overload most likely due to noncompliance to her dialysis. No typical chest pain. Her abdominal pain was cramping in nature. No diarrhea, blood or mucus in the stool. The patient has history of diabetes and gastroparesis. Patient admitted and underwent hemodialysis. The patient is doing much better. Patient's shortness of breath improved. Abdominal pain improved. She denied any nausea or vomiting. Her vital signs much improved. The patient is eager to go home and I am planning to discharge her home today. DISCHARGE PHYSICAL EXAM: Vital signs noted. Neck is supple. No JVD. Lungs: Bilateral good air entry present. CVS: S1 and S2 heard, 2/6 systolic murmur at the aortic area. Abdomen: Soft, nontender. Bowel sounds present. Extremities: No cyanosis or clubbing. No acute DVT. TALENT ACQUISITION SPECIALIST: Alert, awake able to move all 4 limbs. LAB DATA: Done on admission: Hemoglobin 10.1, hematocrit 29.9, platelet count 137,000, WBC count 7.42. PT/INR was 1. D-dimer elevated most likely due to renal failure. Electrolytes result reviewed. Chest x-ray was stable chest. I had lengthy discussion with patient about not missing dialysis. Importance of proper control of diabetes and hypertension discussed at length with the patient. She will continue all her home medicine, follow up with wound clinic and follow up with me in 10 days. In case of more distress, call us back or go to emergency room. cc: Yared Elizondo MD
== END 2017-04-21 15:52 | disposition home or self-care (01) ==
LOC: ED 23:46 → EDIPHOLD 04-20 04:29 → SUATTDRO 04-20 04:29 → 3N 04-20 17:31
PROVIDERS: ADMIT Internal Medicine; ATTEND Internal Medicine